=== PATIENT | male | born 1960 | race Caucasian/White ===

== ENCOUNTER 2020-03-08 10:30 | Outpatient (REF) | payer OTHER, SELFPAY ==
--- NOTE | 2020-03-08 10:37 | XR_ITS ---
EXAMINATION: CHEST WITH RIGHT RIBS AND RIGHT SHOULDER. CLINICAL INFORMATION: Chest pain. Right rib pain. COMPARISON: None TECHNIQUE: Right shoulder 3 views. Chest and right RIBS 4 views. FINDINGS: CHEST: The lungs are well-expanded and clear of acute process. The heart size and pulmonary vascularity is normal. There is moderate spondylosis dorsal spine. RIGHT RIBS: Multiple views of right ribs with marker along the lower ribs reveals a nondisplaced fractures right lateral seventh and eighth ribs there is no pneumothorax. RIGHT SHOULDER: There is mild reduction of glenohumeral and AC joint space with periarticular spurring of the AC joint. No visible fracture, dislocation or subluxation seen. No soft tissue calcifications or loose body seen. XR/XR ribs RT min 3V w CXR1V IMPRESSION: No acute cardiopulmonary process seen in chest. There is moderate spondylosis dorsal spine. There is nondisplaced fracture involving right anterolateral seventh and eighth rib.
--- NOTE | 2020-03-08 10:37 | XR_ITS ---
EXAMINATION: CHEST WITH RIGHT RIBS AND RIGHT SHOULDER. CLINICAL INFORMATION: Chest pain. Right rib pain. COMPARISON: None TECHNIQUE: Right shoulder 3 views. Chest and right RIBS 4 views. FINDINGS: CHEST: The lungs are well-expanded and clear of acute process. The heart size and pulmonary vascularity is normal. There is moderate spondylosis dorsal spine. RIGHT RIBS: Multiple views of right ribs with marker along the lower ribs reveals a nondisplaced fractures right lateral seventh and eighth ribs there is no pneumothorax. RIGHT SHOULDER: There is mild reduction of glenohumeral and AC joint space with periarticular spurring of the AC joint. No visible fracture, dislocation or subluxation seen. No soft tissue calcifications or loose body seen. XR/XR shoulder RT min 2V IMPRESSION: No acute cardiopulmonary process seen in chest. There is moderate spondylosis dorsal spine. There is nondisplaced fracture involving right anterolateral seventh and eighth rib.
== END 2020-03-08 10:31 | disposition home or self-care (01) ==
LOC: HO.HMGCX 10:30
PROVIDERS: PCP Internal Medicine; Visit Provider Nurse Practitioner Family
DX: R07.9 Chest pain, unspecified (principal); M25.511 Pain in right shoulder; Z91.81 History of falling
CPT/HCPCS: 71101; 73030

== ENCOUNTER 2021-03-18 14:17 | Outpatient (REF) | payer OTHER, SELFPAY ==
[2021-03-18 15:07] LABS: Influenza A PCR NEGATIVE (Negative); Influenza B PCR NEGATIVE (Negative); Resp Syncy Virus RNA Qual PCR NEGATIVE (Negative); SARS COV2 PCR INHOUSE POSITIVE (Negative)
== END 2021-03-18 14:18 | disposition home or self-care (01) ==
LOC: HO.LNP 14:17
PROVIDERS: Visit Provider Nurse Practitioner Family
DX: Z20.822 Contact with and (suspected) exposure to COVID-19 (principal); R52 Pain, unspecified; R09.81 Nasal congestion
CPT/HCPCS: 0241U

== ENCOUNTER 2021-07-22 11:11 | Outpatient (REF) | payer OTHER, SELFPAY ==
[2021-07-22 14:20] LABS: Alanine Aminotransferase 24 U/L (0-40); Anion Gap 15 (12-20); Aspartate Amino Transferase 17 U/L (5-37); Blood Urea Nitrogen 20 mg/dL (9-16); Calcium 9.9 mg/dL (8.4-10.2); Carbon Dioxide 28 mmol/L (22-29); Chloride 101 mmol/L (96-108); Cholesterol 223 mg/dL; Estimated Glomerular Filt Rate > 60; Glucose Fasting 111 mg/dL (60-99); HDL Cholesterol 55 mg/dL; LDL Cholesterol Calculated 149 mg/dl; Potassium 4.5 mmol/L (3.3-5.1); Sodium 139 mmol/L (135-145); Triglycerides 99 mg/dL
[2021-07-22 14:42] LABS: PSA,Total (Free>4and<10) 1.42 ng/mL (0.00-4.00); Vitamin D 25-OH Total 16.5 ng/mL (>30)
== END 2021-07-22 11:12 | disposition home or self-care (01) ==
LOC: HO.HMGCLDS 11:11
PROVIDERS: PCP Internal Medicine; Visit Provider Internal Medicine
DX: Z00.01 Encounter for general adult medical examination with abnormal findings (principal); E66.9 Obesity, unspecified; E78.5 Hyperlipidemia, unspecified; I10 Essential (primary) hypertension
CPT/HCPCS: 36415; 80048; 80061; 82306; 84153; 84450; 84460

== ENCOUNTER 2021-08-13 08:38 | Outpatient (REF) | payer OTHER, SELFPAY ==
--- NOTE | ~2021-08-13 | XR_ITS ---
EXAMINATION: XR CHEST CLINICAL INFORMATION: Unspecified cough COMPARISON: Prior chest radiograph 07/26/2018 TECHNIQUE: 2 views of the chest were obtained. FINDINGS: No significant abnormality is noted involving the heart, lungs, mediastinum, bony thorax or soft tissues. XR/XR chest 2V IMPRESSION: Unremarkable examination.
== END 2021-08-13 08:39 | disposition home or self-care (01) ==
LOC: HO.HMGCX 08:38
PROVIDERS: Visit Provider Physician Assistant
DX: R05.9 Cough, unspecified (principal)
CPT/HCPCS: 71046

== ENCOUNTER 2022-01-28 11:53 | Outpatient (REF) | payer OTHER, SELFPAY ==
--- NOTE | ~2022-01-28 | XR_ITS ---
EXAMINATION: XR HIP, LEFT CLINICAL INFORMATION: M47.812 - Spondylosis without myelopathy or radiculopathy, cervical region COMPARISON: None TECHNIQUE: AP view pelvis is performed along with AP and frog-lateral projections left hip. FINDINGS: No fracture, dislocation, destructive process. The SI joints and pubis are unremarkable. There is mild spurring superior lateral acetabulum without hip joint narrowing, erosive change, or chondrocalcinosis. XR/XR hip LT w PEL1V IMPRESSION: Mild spurring superior lateral acetabulum. No hip joint narrowing or erosive change.
== END 2022-01-28 11:54 | disposition home or self-care (01) ==
LOC: HO.HMGCX 11:53
PROVIDERS: PCP Internal Medicine; Visit Provider Internal Medicine
DX: M25.552 Pain in left hip (principal)
CPT/HCPCS: 73502

== ENCOUNTER → 2022-02-21 12:51 | Outpatient (BNVA) | payer OTHER, SELFPAY | PROVIDERS: PCP Internal Medicine; Visit Provider Physician Assistant | DX: S00.83XA Contusion of other part of head, initial encounter (principal); W17.89XA Other fall from one level to another, initial encounter | CPT/HCPCS: 99202 ==

== ENCOUNTER → 2022-03-06 08:52 | Outpatient (BNVA) | payer OTHER, SELFPAY | PROVIDERS: PCP Internal Medicine; Visit Provider Physician Assistant | DX: M70.62 Trochanteric bursitis, left hip (principal) | CPT/HCPCS: 20610; J1040 ==

== ENCOUNTER 2022-09-29 14:53 | Outpatient (AMB) | payer OTHER, SELFPAY ==
--- OUTSIDE RECORDS SUMMARY | 2022-09-29 14:56 | XMS_ITS ---
Author Name Thom Ko Address [address] [place] [address] Organization [facility] Address [address] [place] [address] Care Team Providers Care Post Form Remover Name Role Phone Thom Ko Unavailable [phone] PROBLEMS Unknown Problems ALLERGIES No Information ENCOUNTERS Encounter Location Date Diagnosis [facility] [address] [place] [address] Oct, [facility] [address] [place] [address] Oct, [facility] [place] [facility] [address] [place] [phone] Feb, [facility] [address] [place], [place] [phone] Sep, IMMUNIZATIONS No Known Immunizations SOCIAL HISTORY Never Assessed REASON FOR REFERRAL FUNCTIONAL STATUS PLAN OF CARE VITAL SIGNS MEDICATIONS Unknown Medications PROCEDURES No Known procedures RESULTS No Results REASON FOR VISIT Patient presents today for a colon screening, Patient presents today for a screening colonoscopy, had to cancel appt tomorrow, SCREENING COLON Insurance Providers Health Insurance Type Health Plan Insurance Address Health Plan Insurance Phone Health Plan Insurance Name Health Plan Coverage Dates Member ID Patient Relationship to Subscriber Patient Address Patient Phone Patient Name Patient Date of Subscriber ID Subscriber Name Subscriber Date of Group No [facility] [address] [facility] [id number] [facility] [place] RAMIRO JAMES [id number] [facility] Klarna [facility] [address] [address] [facility] [id number] [facility] self RAMIRO JAMES [id number]
--- NOTE | 2022-09-29 15:25 | MHC.OFFWIV ---
Intake Vital Signs 09/29/22 15:28 BP 120/80 Blood Pressure Location Rt brachial Position Sitting Pulse 75 Pulse Source Pulse Oximeter Pulse Oximetry (%) 92 Intake Visit Reasons: EP, Watery Eyes, Bilateral leg swelling Intake Note: Patient here for some bilat swelling and leg pain, which has been present for about 3 weeks. He also needs a refill on his lisinopril. on left leg when he goes to stand up he notices this big vein that shows up on tigh. Patient Tobacco Use Status: Former Tobacco user Allergies oxycodone Allergy (Verified 09/29/22 15:53) Itching Sulfa (Sulfonamide Antibiotics) Allergy (Verified 09/29/22 15:53) Itching Medication List - Last Reconciled 09/29/22 by Peña Lowe MD acetaminophen 650 mg PO Q6H PRN albuterol sulfate 90 mcg/actuation (Ventolin HFA) 1 inh inhalation QID PRN betamethasone dipropionate 0.05% 1 appl topical DAILY PRN 10 days cetirizine (All Day Allergy (cetirizine)) 10 mg PO BEDTIME PRN hydrochlorothiazide 12.5 mg PO QAM ibuprofen 400 mg PO Q6H PRN lisinopril 5 mg PO DAILY sildenafil 100 mg PO DAILY PRN Do you need a note to return to daycare/school/sports/work: No HPI EP, Watery Eyes, Bilateral leg swelling HPI Details 62-year-old male presents to the office for a sick visit. Patient is complaining of swelling and pain in the right leg in the past few weeks. No history of fall or injury. He has also noticed swelling in the right leg. In addition, patient is also having frequent tearing from the eyes. Does not use contact lenses. [facility] Medical History Colon cancer screening Dyslipidemia Eczema Erectile dysfunction Essential hypertension Obesity (BMI 30-39.9) Pain of left hip joint Varicose veins of both lower extremities Vitamin D deficiency Surgical History Hx of colonoscopy S/P anal fissurectomy Family History Father Diabetes mellitus Coronary artery disease Mother Dementia Sister No problems noted. 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 Head: Yes normal to inspection Eyes General: appearance normal, both eyes and all related structures Neck Neck: Yes normal visual inspection Chest Chest palpation & inspection: normal palpation of entire chest wall Resp Effort & Inspection: normal respiratory effort Neuro General: patient oriented x3 Extrem Other: Right leg: Pitting edema trace, varicose veins prominent with discomfort. Assessment & Plan Assessment & Plan (1) Allergic conjunctivitis: Code(s): H10.10 - Acute atopic conjunctivitis, unspecified eye Plan: Pataday ophthalmic solution to be applied once a day (2) Phlebitis: Code(s): I80.9 - Phlebitis and thrombophlebitis of unspecified site Plan: Nonspecific inflammation of the varicose vein. Keep leg elevated. Anti-inflammatory called in. Medications: Refilled lisinopril 5 mg PO DAILY 90 caps 2RF I10 - Essential (primary) hypertension Coding Level of Care Code Est Pt Level 4 (18750) Diagnoses Allergic conjunctivitis H10.10 Phlebitis I80.9
[2022-09-29 15:28] VITALS: BP 120/80; PULSE 75; O2SAT 92
== END 2022-09-29 16:11 | disposition home or self-care (01) ==
PROVIDERS: PCP Internal Medicine; Visit Provider Internal Medicine
DX: H10.10 Acute atopic conjunctivitis, unspecified eye (principal); I80.9 Phlebitis and thrombophlebitis of unspecified site
CPT/HCPCS: 99214

== ENCOUNTER 2022-10-07 16:00 | Outpatient (AMB) | payer OTHER, SELFPAY ==
--- OUTSIDE RECORDS SUMMARY | 2022-10-07 16:01 | XMS_ITS ---
Author Name Thom Ko Address [address] [place] [address] Organization [facility] Address [address] [place] [address] Care Team Providers Care Cold Roll Catcher Name Role Phone Thom Ko Unavailable [phone] PROBLEMS Unknown Problems ALLERGIES No Information ENCOUNTERS Encounter Location Date Diagnosis [facility] [address] [place] [address] Oct, [facility] [address] [place] [address] Oct, [facility] [place] [address] [phone] Feb, [facility] [place] [facility] [address] [place], [place] [id number] Sep, IMMUNIZATIONS No Known Immunizations SOCIAL HISTORY [...] Name Subscriber Date of Group No [facility] [address] [facility] [id number] [facility] RAMIRO JAMES [id number] [facility] [address] [address] [facility] [id number] [facility] self RAMIRO JAMES [id number]
[2022-10-07 16:47] VITALS: BP 110/74; PULSE 60; O2SAT 97
--- NOTE | 2022-10-07 16:47 | MHC.OFFWIV ---
Intake Vital Signs 10/07/22 16:47 Height 6 ft BP 110/74 Blood Pressure Location Lt brachial Position Sitting Pulse 60 Pulse Source Pulse Oximeter Pulse Oximetry (%) 97 Oxygen Delivery Method Room Air Intake Visit Reasons: EST follow up medication is not working Intake Note: pt was here I week ago yesterday for ankle swelling in both his ankles and was given medicine with no relief of the swelling so he came back to have it checked Patient Tobacco Use Status: Former Tobacco user Allergies oxycodone Allergy (Verified 10/15/22 14:18) Itching Sulfa (Sulfonamide Antibiotics) Allergy (Verified 10/15/22 14:18) Itching HPI EST follow up medication is not working HPI Details 62-year-old male presents to the office for a sick visit. He was seen for phlebitis and allergic conjunctivitis recently. Patient reports that his eye symptoms have resolved. Continues to have swelling in the feet. Reports pain symptoms at the bottom of the feet. [facility] Medical History Colon cancer screening Dyslipidemia Eczema Erectile dysfunction Essential hypertension Obesity (BMI 30-39.9) Pain of left hip joint Varicose veins of both lower extremities Vitamin D deficiency Surgical History Hx of colonoscopy S/P anal fissurectomy Family History Father Diabetes mellitus Coronary artery disease Mother Dementia Sister No problems noted. 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 Cognitive needs: No Hearing needs: No Vision needs: Yes Physical Exam Vital Signs: Last Vital Signs Pulse 60 10/07/22 16:47 BP 110/74 10/07/22 16:47 Pulse Ox 97 10/07/22 16:47 Oxygen Delivery Method Room Air 10/07/22 16:47 Const General: cooperative and healthy appearing Nutritional Appearance: well nourished Orientation/consciousness: patient oriented x3 Limitations: no limitations HEENT Head: Yes normal to inspection Eyes General: appearance normal, both eyes and all related structures Neck Neck: Yes normal visual inspection Chest Chest palpation & inspection: normal palpation of entire chest wall Resp Effort & Inspection: normal respiratory effort Neuro General: patient oriented x3 Extrem Other: Right and left legs: Varicose veins present. No evidence of phlebitis. Assessment & Plan Assessment & Plan (1) Pain, lower extremity: Code(s): M79.606 - Pain in leg, unspecified Plan: Patient needs an evaluation of his circulatory system. This is best done at his primary care office where referrals and diagnostic can be ordered. Patient was advised to follow-up with his primary care provider. Coding Level of Care Code Est Pt Level 3 (81293) Diagnoses Pain, lower extremity M79.606
== END 2022-10-07 17:07 | disposition home or self-care (01) ==
PROVIDERS: PCP Internal Medicine; Visit Provider Internal Medicine
DX: M79.606 Pain in leg, unspecified (principal)
CPT/HCPCS: 99213

== ENCOUNTER 2022-10-17 10:26 | Outpatient (AMB) | payer OTHER, SELFPAY ==
--- NOTE | 2022-10-17 10:30 | MHC.PC.OV ---
Vital Signs 10/17/22 10:34 Height 6 ft Weight 268 lb BMI 36.3 BP 142/80 H Blood Pressure Location Rt brachial Position Sitting Pulse 71 Pulse Source Pulse Oximeter Pulse Oximetry (%) 97 Oxygen Delivery Method Room Air Intake Visit Reasons: Follow up from walk in per DR Lawson Intake Note: Pt is here today for his bilateral feet swollen f/u from walkin Allergies oxycodone Allergy (Verified 10/19/22 23:52) Itching Sulfa (Sulfonamide Antibiotics) Allergy (Verified 10/19/22 23:52) Itching Medication List - Last Reconciled 10/17/22 by Priscila Hartman MD albuterol sulfate 90 mcg/actuation (Ventolin HFA) 1 inh inhalation QID PRN betamethasone dipropionate 0.05% 1 appl topical DAILY PRN 10 days hydrochlorothiazide 12.5 mg PO QAM lisinopril 5 mg PO DAILY olopatadine 0.2% (Pataday Once Daily Relief) 1 drp ophthalmic (eye) DAILY sildenafil 100 mg PO DAILY PRN Tobacco use date assessed: 10/17/22 Dental Screening Dental Screen Date: 10/17/22 Did you have a dental visit in the last 12 months?: Yes Did you have a dental problem in the last 6 months where you did not have access to dental care?: Yes Was dental information given to patient?: Patient has dentist HPI Follow up from [facility] in per DR Lawson HPI Details 62-year-old male h ypertension, obesi ty, here today fo r follow-up after being seen at the walk-in for phleb itis and allergic conjunctivitis rec ently.? Patient re ports that his eye symptoms have res olved.? Continues to have swelling i n the feet.? Repor ts pain symptoms a t the bottom of th e feet, worse with standing for exte nded periods of ti me ? PFSH Medical History (Updated 10/17/22 @ 10:58 by Priscila Hartman MD) Bilateral lower extremity edema Colon cancer screening Dyslipidemia Eczema Erectile dysfunction Essential hypertension Obesity (BMI 30-39.9) Pain of left hip joint Varicose veins of both lower extremities Vitamin D deficiency Surgical History Hx of colonoscopy S/P anal fissurectomy Family History Father Diabetes mellitus Coronary artery disease Mother Dementia Sister No problems noted. 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 1. Little interest or pleasure in doing things: not at all 2. Feeling down, depressed, or hopeless: not at all 3. Trouble falling or staying asleep, or sleeping too much: not at all 4. Feeling tired or having little energy: not at all 5. Poor appetite or overeating: not at all 6. Feeling bad about yourself - or that you are a failure or have let yourself or your family down: not at all 7. Trouble concentrating on things, such as reading the newspaper or watching television: not at all 8. Moving or speaking so slowly that other people could have noticed. Or the opposite - being so fidgety or restless that you have been moving around a lot more than usual: not at all 9. Thoughts that you would be better off or of hurting yourself in some way: not at all Total score: 0 Depression Screening Interpretation: Negative 35587 - PHQ-9 Billing: Yes Source: Developed by Drs. Thom Foreman, Melody Ardon, Aamir Blevins and colleagues, with an educational aruna from [employer]. Thrive Questionnaire Date Thrive assessed: 10/17/22 I am a: Patient What is your living situation today?: I have a steady place to live Within the past 12 months, did the food you bought not last and you didn't have the money to get more?: Never true Within the past 12 months, did you worry whether your food would run out before you got money to buy more?: Never true Do you have trouble paying for medicines?: No Do you have trouble getting transportation to medical appointments?: No Do you have trouble paying your heating and electricity bill?: No Do you have trouble taking care of your child, family member or friend?: No Do you have trouble with day-to-day activities such as bathing, preparing meals, shopping, managing finances, etc.?: No Are you currently unemployed and looking for a job?: No Are you interested in more education?: No AUDIT C Alcohol Use Questionnaire (AUDIT-C) 1. How often do you have a drink containing alcohol?: Monthly or less 2. How many drinks containing alcohol do you have on a typical day when you are drinking?: 1 or 2 3. How often do you have six or more drinks on one occasion?: Never Total Score: 1 JESSICA-7 AMB Questionnaire JESSICA-7 Date JESSICA - 7 assessed: 10/17/22 Feeling nervous, anxious, or on edge: 0 = Not at all Not being able to stop or control worryin = Not at all Worrying too much about different things: 0 = Not at all Trouble relaxin = Not at all Being so restless that it is hard to sit still: 0 = Not at all Becoming easily annoyed or irritable: 0 = Not at all Feeling afraid as if something awful might happen: 0 = Not at all Total JESSICA-7 score (0-4 normal; 5-9 mild; 10-14 moderate; 15-21 severe): 0 Source: Developed by Drs. Thom Foreman, Melody Ardno, Aamir Blevins and colleagues, with an educational aruna from [employer]. JESSICA-7 Assessment Billing JESSICA-7 Assessment Tool: JESSICA-7 Assessment 76206 Review of Systems Const All systems reviewed & are unremarkable except as noted in HPI and below Card Reports no additional complaints Resp Reports no additional complaints Reports no additional complaints Musc Reports as per HPI Physical exam (Primary Care) Vital Signs: Last Vital Signs Pulse 71 10/17/22 10:34 BP 142/80 H 10/17/22 10:34 Pulse Ox 97 10/17/22 10:34 Oxygen Delivery Method Room Air 10/17/22 10:34 BMI result Body Mass Index 36.3 Tobacco/Smoking Status: Tobacco use Status Tobacco use date assessed 10/17/22 10/17/22 10:38 Patient Tobacco Use Status Never used Tobacco 10/17/22 10:38 e-Cigarette/Vaping Use Never Used 10/17/22 10:31 PHQ-9: PHQ-9 Score PHQ-9: Total score 0 10/17/22 11:07 Depression Screening Interpretation: Negative Thrive Assessment: Date of Thrive Assessment Date Thrive assessed 10/17/22 10/17/22 11:07 Const General: comfortable and no acute distress Nutritional Appearance: obese Orientation/consciousness: patient oriented x3 Neck Neck: Yes full ROM, Yes no lymphadenopathy and Yes supple Resp Auscultation: clear to auscultation bilaterally Cardio Rate: regular rate Rhythm: regular rhythm Heart sounds: S1 normal heart sound present and S2 normal heart sound present Peripheral pulses: Peripheral pulses 2+ throughout GI Inspection: Yes obesity Palpation (GI): Soft to palpation, nontender, no guarding and no masses Auscultation: normal bowel sounds Skin General skin exam: no rashes or lesions noted Neuro General: patient oriented x3 Extrem Other: Varicose veins noted in both lower extremities, right more than the left read ankle swelling noted bilaterally again right more than the left General: No no joint enlargement, Yes no calf tenderness and Yes normal gait Assessment and Plan Assessment & Plan (1) Varicose veins of both lower extremities: Code(s): I83.93 - Asymptomatic varicose veins of bilateral lower extremities (2) Bilateral lower extremity edema: Code(s): R60.0 - Localized edema Plan: Ordered ultrasound venous duplex to rule out venous insufficiency, advised to wear compression socks especially when upright or walking for extended periods of time and remove them at night. Orders: Orders US venous duplex LE 10/17/22 I83.93 - Asymptomatic varicose veins of bilateral lower extremities, R60.0 - Localized edema Coding Level of Care Code Est Pt Level 3 (05815) Diagnoses Varicose veins of both lower extremities I83.93 Bilateral lower extremity edema R60.0 Additional Codes JESSICA-7 Assessment Billing - JESSICA-7 Assessment Tool: JESSICA-7 Assessment 82705 ([id number])
[2022-10-17 10:34] VITALS: BP 142/80; PULSE 71; O2SAT 97; BMI 36.3
== END 2022-10-17 13:16 | disposition home or self-care (01) ==
PROVIDERS: PCP Internal Medicine; Visit Provider Internal Medicine
DX: I83.93 Asymptomatic varicose veins of bilateral lower extremities (principal); R60.0 Localized edema
CPT/HCPCS: 99213

== ENCOUNTER 2022-10-28 13:13 | Outpatient (REF) | payer OTHER, SELFPAY ==
--- NOTE | ~2022-10-28 | US_ITS ---
EXAMINATION: US VENOUS BILATERAL LOWER EXTREMITIES (REFLUX EXAM) CLINICAL INDICATION: Swelling in both lower extremities right greater than left with question of venous insufficiency. COMPARISON: None available. TECHNIQUE: Color flow triplex imaging and compression Doppler was performed to evaluate both the deep and the superficial systems bilaterally. To evaluate the superficial system, the examination was performed in the upright position. Color-flow Doppler ultrasound and compression ultrasound were utilized. In addition, maneuvers were utilized to demonstrate reflux. FINDINGS: 1. DEEP VENOUS ULTRASOUND OF THE RIGHT LOWER EXTREMITY: Respiratory variation, normal compression and augmented flow are noted in the right common femoral vein as well as the right popliteal vein and there is no evidence of deep venous thrombosis at these locations. There is no evidence of reflux in the deep system in either the common femoral vein or the popliteal vein. There is no evidence of a Mccarthy's cyst. 2. SUPERFICIAL ULTRASOUND WITH DOPPLER OF RIGHT LOWER EXTREMITY: The right great saphenous vein at the saphenofemoral junction measures 7 mm, at the proximal thigh 5 mm, at the mid thigh 4 mm, above the knee 4 mm, at the knee 3 mm, [id number] 3 mm, midcalf 4 mm and at the ankle measures 3 mm. Gross reflux is present in the right great saphenous vein from the mid thigh all the way down to the ankle with reflux times greater than 2.8 seconds. Duplicated Right Great Saphenous Vein: There is a 5 mm lateral accessory saphenous that does not reflux. The right small saphenous vein measures 4 mm and shows no reflux. Accessory Vein of Giacomini: None. Incompetent Perforators: None. Varices Present: Some proximal thigh varices are seen the largest measuring 0.3 cm. 3. DEEP VENOUS ULTRASOUND OF THE LEFT LOWER EXTREMITY: Respiratory variation, normal compression and augmented flow are noted in the left common femoral vein as well as the left popliteal vein and there is no evidence of deep venous thrombosis at these locations. There is no evidence of reflux in the deep system in either the common femoral vein or the popliteal vein. There is no evidence of a Mccarthy's cyst. 4. SUPERFICIAL ULTRASOUND WITH DOPPLER OF LEFT LOWER EXTREMITY: Left great saphenous vein at the saphenofemoral junction measures 8 mm, at the proximal thigh 4 mm, at the mid thigh 3 mm, above the knee 4 mm, at the knee 4 mm, [id number] 3 mm, midcalf 3 mm and at the ankle measures 2 mm. There is no reflux demonstrated in the left great saphenous vein. Duplicated Left Great Saphenous Vein: There is a 3 mm lateral accessory saphenous that does not reflux. The left small saphenous vein measures 4 mm and shows no reflux. Accessory Vein of Giacomini: None. Incompetent Perforators: None. Varices Present: None. US/US venous duplex LE BI IMPRESSION: 1. No evidence of reflux or thrombus in the common femoral veins or popliteal veins bilaterally. 2. Gross reflux in the right great saphenous vein as described above.
== END 2022-10-28 13:14 | disposition home or self-care (01) ==
LOC: HO.US 13:13
PROVIDERS: PCP Internal Medicine; Visit Provider Internal Medicine
DX: I83.93 Asymptomatic varicose veins of bilateral lower extremities (principal); R60.0 Localized edema
CPT/HCPCS: 93970

== ENCOUNTER 2022-12-04 16:04 | Outpatient (AMB) | payer OTHER, SELFPAY ==
[2022-12-04 16:09] VITALS: BP 110/72; PULSE 89; O2SAT 98
--- NOTE | 2022-12-04 16:09 | MHC.PC.OV ---
Vital Signs 12/04/22 16:09 Height 6 ft BP 110/72 Blood Pressure Location Rt brachial Position Sitting Pulse 89 Pulse Source Pulse Oximeter Pulse Oximetry (%) 98 Oxygen Delivery Method Room Air Intake Visit Reasons: ER Heather blood clot Intake Note: patient is here todY for ER f/u of blood clot Allergies oxycodone Allergy (Verified 12/04/22 17:03) Itching Sulfa (Sulfonamide Antibiotics) Allergy (Verified 12/04/22 17:03) Itching Medication List - Last Reconciled 12/04/22 by Priscila Hartman MD albuterol sulfate 90 mcg/actuation (Ventolin HFA) 1 inh inhalation QID PRN apixaban (Eliquis) 5 mg PO BID betamethasone dipropionate 0.05% 1 appl topical DAILY PRN 10 days hydrochlorothiazide 12.5 mg PO QAM lisinopril 5 mg PO DAILY olopatadine 0.2% (Pataday Once Daily Relief) 1 drp ophthalmic (eye) DAILY sildenafil 100 mg PO DAILY PRN Tobacco use date assessed: 12/04/22 Fall risk assessment: No Falls in past year Last assessed Fall Risk: 12/04/22 Dental Screening Dental Screen Date: 12/04/22 Did you have a dental visit in the last 12 months?: No Did you have a dental problem in the last 6 months where you did not have access to dental care?: Yes Was dental information given to patient?: Patient has dentist HPI ER Heather blood clot HPI Details 62-year-old male with history of hypertension, hyperlipidemia, asthma, obesity, here today for follow-up after recent ER visit at [facility] 11/19/2022 where he presented with bilateral lower extremity swelling. Workup in the ED revealed nonocclusive right lower extremity DVT. CTA chest revealed bilateral pulmonary embolism without right heart strain, troponin x2 came back negative. He was initially started on heparin drip and then switched to Eliquis 5 mg 1 tablet twice a day. He reports feeling well, with no complaints of shortness of breath, swelling in both lower extremities has resolved, denies any pain in calves, denies palpitations or chest pain. [facility] Medical History (Updated 12/04/22 @ 16:57 by Priscila Hartman MD) Pulmonary embolism Deep venous thrombosis (DVT) of right peroneal vein Bilateral lower extremity edema Erectile dysfunction Pain of left hip joint Vitamin D deficiency Colon cancer screening Obesity (BMI 30-39.9) Varicose veins of both lower extremities Eczema Dyslipidemia Essential hypertension Surgical History Hx of colonoscopy S/P anal fissurectomy Family History Father Diabetes mellitus Coronary artery disease Mother Dementia Sister No problems noted. 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 1. Little interest or pleasure in doing things: several days 2. Feeling down, depressed, or hopeless: not at all 3. Trouble falling or staying asleep, or sleeping too much: not at all 4. Feeling tired or having little energy: more than half the days 5. Poor appetite or overeating: not at all 6. Feeling bad about yourself - or that you are a failure or have let yourself or your family down: not at all 7. Trouble concentrating on things, such as reading the newspaper or watching television: not at all 8. Moving or speaking so slowly that other people could have noticed. Or the opposite - being so fidgety or restless that you have been moving around a lot more than usual: more than half the days 9. Thoughts that you would be better off or of hurting yourself in some way: not at all Total score: 5 Depression Screening Interpretation: Negative 50322 - PHQ-9 Billing: Yes Source: Developed by Drs. Thom Foreman, Melody Ardon, Aamir Blevins and colleagues, with an educational aruna from [employer]. Thrive Questionnaire Date Thrive assessed: 10/17/22 AUDIT C Alcohol Use Questionnaire (AUDIT-C) 1. How often do you have a drink containing alcohol?: Monthly or less 2. How many drinks containing alcohol do you have on a typical day when you are drinking?: 1 or 2 Total Score: 1 JESSICA-7 AMB Questionnaire JESSICA-7 Date JESSICA - 7 assessed: 10/17/22 Source: Developed by Drs. Thom Foreman, Melody Ardon, Aamir Blevins and colleagues, with an educational aruna from [employer]. Review of Systems Const Denies body aches, Denies fatigue, Denies fever(s), Denies headache(s) and Denies weakness ENT Denies dizziness, Denies headache(s) and Denies sore throat Card Denies chest pain, Denies lightheadedness, Denies palpitations and Denies dyspnea Resp Denies chest congestion, Denies dyspnea and Denies wheezing GI Denies abdominal pain, Denies change in bowel habits and Denies heartburn Denies dysuria, Denies urinary frequency and Denies urinary urgency Musc Reports no additional complaints Skin/Breast Reports as per HPI Neuro Denies dizziness, Denies headache(s) and Denies weakness Psych Reports as per HPI Endo Denies fatigue, Denies polydipsia, Denies polyuria and Denies palpitations Ceasar/Lymph Denies easy bruising Aller/Immun Denies seasonal rhinorrhea and Denies wheezing Physical exam (Primary Care) Vital Signs: Last Vital Signs Pulse 89 12/04/22 16:09 BP 110/72 12/04/22 16:09 Pulse Ox 98 12/04/22 16:09 Oxygen Delivery Method Room Air 12/04/22 16:09 Tobacco/Smoking Status: Tobacco use Status Tobacco use date assessed 12/04/22 12/04/22 16:20 Patient Tobacco Use Status Never used Tobacco 12/04/22 16:20 e-Cigarette/Vaping Use Never Used 12/04/22 16:20 PHQ-9: PHQ-9 Score PHQ-9: Total score 5 12/04/22 17:02 Depression Screening Interpretation: Negative Thrive Assessment: Date of Thrive Assessment Date Thrive assessed 10/17/22 12/04/22 16:20 Const General: comfortable and no acute distress Nutritional Appearance: obese Orientation/consciousness: patient oriented x3 Neck Neck: Yes full ROM, Yes no lymphadenopathy and Yes supple Resp Auscultation: clear to auscultation bilaterally Cardio Rate: regular rate Rhythm: regular rhythm Heart sounds: S1 normal heart sound present and S2 normal heart sound present Peripheral pulses: Peripheral pulses 2+ throughout GI Inspection: Yes obesity Palpation (GI): Soft to palpation, nontender, no guarding and no masses Auscultation: normal bowel sounds Skin General skin exam: no rashes or lesions noted Neuro General: patient oriented x3 Extrem Other: Varicose veins noted in both lower extremities, right more than the left read ankle swelling noted bilaterally again right more than the left General: No no joint enlargement, Yes no calf tenderness and Yes normal gait Assessment and Plan Assessment & Plan (1) Deep venous thrombosis (DVT) of right peroneal vein: Code(s): I82.451 - Acute embolism and thrombosis of right peroneal vein Plan: Continued on Eliquis 5 mg per tablet taken 1 tablet twice a day. (2) Pulmonary embolism: Code(s): I26.99 - Other pulmonary embolism without acute cor pulmonale Plan: Will evaluate for coagulation defects, labs ordered. Continued on Eliquis 5 mg 1 tablet twice a day Orders: Orders Factor V Leiden 12/04/22 I82.451 - Acute embolism and thrombosis of right peroneal vein, I26.99 - Other pulmonary embolism without acute cor pulmonale Anti-Thrombin III Activity 12/04/22 I82.451 - Acute embolism and thrombosis of right peroneal vein, I26.99 - Other pulmonary embolism without acute cor pulmonale Lupus Anticoagulant Panel 12/04/22 I82.451 - Acute embolism and thrombosis of right peroneal vein, I26.99 - Other pulmonary embolism without acute cor pulmonale Protein C Activity Reflex Ag 12/04/22 I82.451 - Acute embolism and thrombosis of right peroneal vein, I26.99 - Other pulmonary embolism without acute cor pulmonale Protein S Activity reflex Ag 12/04/22 I82.451 - Acute embolism and thrombosis of right peroneal vein, I26.99 - Other pulmonary embolism without acute cor pulmonale Medications: New apixaban (Eliquis) 5 mg PO BID 60 tabs 1RF I26.99 - Other pulmonary embolism without acute cor pulmonale, I82.451 - Acute embolism and thrombosis of right peroneal vein Refilled sildenafil administer 30 minutes to 4 hours before activity 100 mg PO DAILY PRN 10 tabs 0RF sexual activity Coding Level of Care Code Est Pt Level 3 (41768) Diagnoses Deep venous thrombosis (DVT) of right peroneal vein I82.451 Pulmonary embolism I26.99
== END 2022-12-04 17:04 | disposition home or self-care (01) ==
PROVIDERS: PCP Internal Medicine; Visit Provider Internal Medicine
DX: I82.451 Acute embolism and thrombosis of right peroneal vein (principal); I26.99 Other pulmonary embolism without acute cor pulmonale
CPT/HCPCS: 99213

== ENCOUNTER 2023-04-20 08:27 | Outpatient (AMB) | payer OTHER, SELFPAY ==
--- OUTSIDE RECORDS SUMMARY | 2023-04-20 08:39 | XMS_ITS | Patient Health Record ---
Author Name Unknown [facility] Address [address] [place] [address] Care Team Providers Care Long Term Care Social Worker Name Role Phone Devan THOMAS, Priscila Hawkins Primary Care Provider Un available Mo Garry Unavailable [phone] REASON FOR REFERRAL No Information MEDICATIONS Medication SIG (Take, Route, Frequency, Duration) Notes Start Date End Date Status Betamethasone Dipropionate 0.05 % 1 application Externally Once a day Active hydroCHLOROthiazide Active Lisinopril 0.5 1 tablet Orally Once a day Active SOCIAL HISTORY Tobacco Use: Social History Observation Description Date Details (start date - stop date) Never Smoker NA - NA Sex Assigned At : Social History Observation Description Sex Assigned At Unknown Tobacco Use/Smoking Question Answer Notes Are you a: nonsmoker Alcohol Screen Question Answer Notes Did you have a drink containing alcohol in the p ast year? Yes Points 0 Interpretation Negative Tobacco use other than smoking: Question Answer Notes Are you an other tobacco user? No PROBLEMS Problem Type ICD Code Onset Dates Problem Status W/U Status Risk SNOMED Code Notes Problem Other hammer toe(s) (acquired), left foot (M20.42) Active confirmed Acquired hammer toe of left foot ([id number]) PLAN OF TREATMENT Pending Test Test Name Order Date X ray : Foot, left 3V 05/25/2019 Next Appt Details Provider Name:Julia viera, 06/26/2023 10:30:00 AM, [address] [place], [address], Insurance Providers Payer Name Payer Address Payer Phone Subscriber Number Group Number Insured Name Patient Relationship to Insured Coverage Start Date Coverage End Date [facility] [address] [facility] [place] [phone] [id number] Derick Fields Self - patient is the insured MEDICAL (GENERAL) HISTORY Medical History History ICD Code High blood pressure Measles Surgical History Surgery Date(Month/Year) Hospitalization History Reason Date(Month/Year) [facility]- Respiratory infection 08/01
--- OUTSIDE RECORDS SUMMARY | 2023-04-20 08:39 | XMS_ITS | Patient Health Record ---
Author Name Unknown Organization [facility] Address [address] [place] [id number] Care Team Providers Care Coal Inspector Name Role Phone Devan THOMAS, Priscila Primary Care Provider Thom Gaines [phone] REASON FOR REFERRAL No Information SOCIAL HISTORY Sex Assigned At : Social History Observation Description Sex Assigned At Unknown PLAN OF TREATMENT No Information Insurance Providers Payer Name Payer Address Payer Phone Subscriber Number Group Number Insured Name Patient Relationship to Insured Coverage Start Date Coverage End Date [facility] [address] [address] [place], [place] [id number] RAMIRO JAMES Self - patient is the insured
[2023-04-20 09:09] VITALS: BP 130/80; PULSE 83; TEMP 36.9; O2SAT 96; BMI 37.0
--- NOTE | 2023-04-20 09:09 | AM.OFFWIN_ITS ---
Intake Vital Signs 04/20/23 09:09 Height 6 ft Weight 123.831 kg BMI 37.0 BP 130/80 Blood Pressure Location Lt brachial Position Sitting Pulse 83 Pulse Source Pulse Oximeter Temp 98.5 F Temp Source Temporal Artery Scan Pulse Oximetry (%) 96 Oxygen Delivery Method Room Air Intake Visit Reasons: EST/congestion (lobby masked) Intake Note: pt is here today for congestion started 1 week ago Patient Tobacco Use Status: Never used Tobacco Allergies oxycodone Allergy (Verified 04/20/23 09:09) Itching Sulfa (Sulfonamide Antibiotics) Allergy (Verified 04/20/23 09:09) Itching Do you need a note to return to daycare/school/sports/work: No HPI HPI Comments History of Present Illness Details 921 63-year-old male hx of COPD, PE & VT ( o n eliquis) obesity, htn presents w/ complaints of cough, fatigue malaise for about a week. Patient tells me that he is coughing up a decent amount of thick clear sputum. He states he just does not feel well. Denies chest pain, shortness of breath, nausea, vomiting, abdominal pain, headache, vision changes, dizziness and weakness at this time. Physical examination faint expiratory wheezing bilaterally. History and physical exam are concerning for bronchitis versus COPD exacerbation. No signs of acute respiratory distress, PE, dissection, ACS. Will discharge with doxycycline, prednisone, albuterol. Educated patient on diagnosis and treatment plan, answered all question, patient verbalizes understanding. At this time patient will be discharged home, advised to return with new or worsening symptoms. Educated on worrisome signs and symptoms and when to return. At this time I feel comfortable discharge home. [facility] Medical History (Updated 04/20/23 @ 09:27 by RY Calix) Pulmonary embolism Deep venous thrombosis (DVT) of right peroneal vein Bilateral lower extremity edema Erectile dysfunction Pain of left hip joint Vitamin D deficiency Colon cancer screening Obesity (BMI 30-39.9) Varicose veins of both lower extremities Eczema Dyslipidemia Essential hypertension Surgical History Hx of colonoscopy S/P anal fissurectomy Family History Father Diabetes mellitus Coronary artery disease Mother Dementia Sister No problems noted. 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 Oriented X3.? No acute distress.? Head: Normocephalic, atraumatic, no step-offs or deformities Eyes: Pupils equal, round and reactive to light. CVS: Normal heart rate and rhythm.? Pulses normal.? Respiratory: No respiratory distress.? Breath sounds bilateral faint expiratory wheezing..? Abdomen: Soft and nontender.? Skin: Skin warm and dry.? Normal skin color.? Normal skin turgor.? Extremities: No lower extremity edema.? No calf ttp. 5/5 strength to bilateral upper and lower extremities Neuro: Oriented X 3.? No motor deficit.? No sensory deficit. CN 2-12 intact Assessment & Plan Assessment & Plan (1) Upper respiratory tract infection: Comment: likely viral Code(s): J06.9 - Acute upper respiratory infection, unspecified Plan Take your medications as prescribed. If you were prescribed antibiotics today, it is important that you take your medication to their entirety, do not skip any doses, do not finish them early. Follow-up with your primary care provider this week. Return to the emergency department with new or worsening symptoms. Such as fevers, chills, chest pain, shortness of breath, nausea, vomiting, dizziness, headache, vision changes, lethargy In case of emergency call 911 Orders: Orders BinaxNOW Covid-19 Ag Today J06.9 - Acute upper respiratory infection, unspecified Medications: New doxycycline hyclate 100 mg PO BID 7 days 14 caps 0RF prednisone 40 mg (2 x 20 mg) PO DAILY 5 days 10 tabs 0RF albuterol sulfate 90 mcg/actuation 2 puffs inhalation Q6H PRN 6.7 grams 0RF shortness of breath or wheezing Coding Level of Care Code Est Pt Level 3 (63050) Diagnoses Upper respiratory tract infection J06.9
== END 2023-04-20 09:47 | disposition home or self-care (01) ==
PROVIDERS: PCP Internal Medicine; Visit Provider Physician Assistant
DX: J06.9 Acute upper respiratory infection, unspecified (principal)
CPT/HCPCS: 99213

== ENCOUNTER 2023-04-20 09:24 | Outpatient (REF) | payer OTHER, SELFPAY ==
[2023-04-20 10:56] LABS: Binax Internal Control QC Valid; Binax Now Covid-19 Ag Negative (Negative); Binax Performed by: HO.BONILM
== END 2023-04-20 09:25 | disposition home or self-care (01) ==
LOC: HO.HMGCLDS 09:24
PROVIDERS: PCP Internal Medicine; Visit Provider Physician Assistant
DX: Z11.52 Encounter for screening for COVID-19 (principal); J06.9 Acute upper respiratory infection, unspecified
CPT/HCPCS: 87811

== ENCOUNTER 2023-05-29 09:38 | Outpatient (AMB) | payer OTHER, SELFPAY ==
--- NOTE | 2023-05-29 09:42 | MHC.OFFWIV ---
Intake Vital Signs 05/29/23 09:43 Height 6 ft Weight 273 lb BMI 37.0 BP 130/70 Blood Pressure Location Lt brachial Position Sitting Pulse 67 Pulse Source Pulse Oximeter Temp 97.5 F Temp Source Temporal Artery Scan Pulse Oximetry (%) 96 Oxygen Delivery Method Room Air Intake Visit Reasons: EP ?Respiratory Intake Note: pt is here today for respiratory started 2 weeks ago Patient Tobacco Use Status: Never used Tobacco Allergies oxycodone Allergy (Verified 05/29/23 09:43) Itching Sulfa (Sulfonamide Antibiotics) Allergy (Verified 05/29/23 09:43) Itching Do you need a note to return to daycare/school/sports/work: No HPI HPI Comments History of Present Illness Details This is a 63-year-old male with past medical history significant for DVT/PE, chronic obstructive pulmonary disease, essential hypertension who presented to the walk-in clinic complaining of a persistent productive cough and shortness of breath x 2 weeks. Patient states he has been she did with prednisone and doxycycline but he did not have any significant improvement in his symptoms. He is reporting persistent cough with green-yellow sputum production and shortness of breath mostly with exertion. He denies any chest pain. He denies any abdominal pain or nausea/vomiting/diarrhea. He denies any fevers or chills. He denies any nasal/sinus congestion, rhinorrhea, sore throat, myalgias. [facility] Medical History (Updated 05/25/23 @ 13:36 by Priscila Hartman MD) Current use of prison anticoagulation Factor 5 Leiden mutation, heterozygous Pulmonary embolism Deep venous thrombosis (DVT) of right peroneal vein Bilateral lower extremity edema Erectile dysfunction Pain of left hip joint Vitamin D deficiency Colon cancer screening Obesity (BMI 30-39.9) Varicose veins of both lower extremities Eczema Dyslipidemia Essential hypertension Surgical History Hx of colonoscopy S/P anal fissurectomy Family History Father Diabetes mellitus Coronary artery disease Mother Dementia Sister No problems noted. 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 Cognitive needs: No Hearing needs: No Vision needs: Yes Review of Systems Const All systems reviewed & are unremarkable except as noted in HPI and below Reports no additional complaints Eyes Reports no additional complaints ENT Reports no additional complaints Card Reports no additional complaints Resp Reports no additional complaints GI Reports no additional complaints Reports no additional complaints Musc Reports no additional complaints Skin/Breast Reports system reviewed and no additional complaints, except as documented Neuro Reports no additional complaints Psych Reports no additional complaints Endo Reports no additional complaints Ceaasr/Lymph Reports no additional complaints Aller/Immun Reports no additional complaints Physical Exam Vital Signs: Last Vital Signs Temp 97.5 F 05/29/23 09:43 Pulse 67 05/29/23 09:43 BP 130/70 05/29/23 09:43 Pulse Ox 96 05/29/23 09:43 Oxygen Delivery Method Room Air 05/29/23 09:43 BMI result Body Mass Index 37.0 Const Other: Vital signs reviewed. Constitutional: Non-toxic appearing. No acute distress. Well-developed and well-nourished. HEENT: Normocephalic and atraumatic. Skin: Warm and dry. No rashes or lesions noted. Neck: Full and painless range of motion. No cervical lymphadenopathy. Cardio: Regular rate and rhythm. No murmurs, gallops, or rubs. No lower extremity edema. No JVD. Pulmonary: No respiratory distress. No accessory muscle usage. Scattered rhonchorous breath sounds. Gastrointestinal: Soft, non-tender, and non-distended in all 4 quadrants. Normoactive bowel sounds in all 4 quadrants. Genitourinary: No CVA tenderness. Musculoskeletal: Normal range of motion in joints throughout the body. No deformity or other signs of injury. Neuro: Alert and oriented x4. Cranial nerves 2-12 grossly intact. No focal deficits appreciated. Psych: Normal mood and affect. Assessment & Plan Assessment & Plan (1) Acute exacerbation of chronic obstructive pulmonary disease (COPD): Code(s): J44.1 - Chronic obstructive pulmonary disease with (acute) exacerbation Plan: This is a 63-year-old male with history of COPD who presented to the walk-in clinic complaining of a persistent productive cough and shortness of breath with exertion times 2-3 weeks. On physical examination, the patient has diffuse rhonchorous breath sounds without significant wheezing. He is maintaining oxygen saturations on room air and he does not appear to be in any acute respiratory distress. History and physical most consistent with an acute COPD exacerbation with possible atypical pneumonia. Chest x-ray was obtained upon my read does not show any acute cardiopulmonary process. The patient was sent home on p.o. prednisone taper, p.o. azithromycin 500 mg today followed by 250 mg daily x4 days, and PO benzonatate 100 mg 3 times daily as needed for cough. Patient was instructed to follow-up here or proceed to the emergency room if he were to develop worsening shortness of breath, fever/chills, chest pain, or hemoptysis. Patient verbalizes understanding and he is in agreement with the plan. Orders: Orders XR chest 2V Today R05.9 - Cough, unspecified Medications: New prednisone Take 4 tablets daily x3 days followed by 3 tablets daily x3 days followed by 2 tablets daily x3 days followed by 1 tablet daily x3 days followed by 1/2 tablet daily x2 days 10 mg PO DIRECTED 31 tabs 0RF azithromycin For 250 mg dose pack: take 500 mg today (day 1), then 250 mg for 4 days (days 2-5) PO 6 tabs 0RF benzonatate 100 mg PO TID PRN 20 caps 0RF cough Coding Level of Care Code Est Pt Level 3 (49422) Diagnoses Acute exacerbation of chronic obstructive pulmonary disease (COPD) J44.1
[2023-05-29 09:43] VITALS: BP 130/70; PULSE 67; TEMP 36.4; O2SAT 96; BMI 37.0
== END 2023-05-29 11:00 | disposition home or self-care (01) ==
PROVIDERS: PCP Internal Medicine; Visit Provider Physician Assistant Medical
DX: J44.1 Chronic obstructive pulmonary disease with (acute) exacerbation (principal)
CPT/HCPCS: 99213

== ENCOUNTER 2023-05-29 10:11 | Outpatient (REF) | payer OTHER, SELFPAY ==
--- NOTE | ~2023-05-29 | XR_ITS ---
EXAMINATION: XR CHEST CLINICAL INFORMATION: Cough. COMPARISON: 08/13/2021 TECHNIQUE: 2 views of the chest were obtained. FINDINGS: A few opacities in the left lung are new compared to 08/13/2021. A new linear opacity of platelike atelectasis is present in the left midlung zone. On the lateral radiograph, there appears to be ill-defined patchy opacity of the superior segment of the left lower lobe. On the frontal radiograph, there is a questionable finding of a 1.5 cm nodule in the medial left lower lobe. No pulmonary edema or pleural effusion. Mildly enlarged cardiomediastinal silhouette has stable size and contour compared to 0 08/13 2021. Mild spondylosis of the thoracic spine. XR/XR chest 2V IMPRESSION: There is platelike atelectasis in the left midlung zone. Also, there appears to be ill-defined opacity from atelectasis or infiltrate in the superior segment of the left lower lobe as well as questionable nodule in the medial left lower lobe. If the patient clinically has pneumonia, then obtain PA/lateral chest radiographic follow-up in 6 weeks after medical treatment to ensure improvement of these abnormalities. Alternatively, if the cause of cough is clinically uncertain, consider obtaining chest CT evaluation.
== END 2023-05-29 10:12 | disposition home or self-care (01) ==
LOC: HO.HMGCX 10:11
PROVIDERS: PCP Internal Medicine; Visit Provider Physician Assistant Medical
DX: R05.9 Cough, unspecified (principal)
CPT/HCPCS: 71046

== ENCOUNTER 2023-06-01 08:44 | Outpatient (AMB) | payer OTHER, SELFPAY ==
--- NOTE | 2023-06-01 08:47 | A.OFFPC_ITS ---
Vital Signs 06/01/23 08:50 Height 6 ft Weight 266 lb BMI 36.1 BP 100/68 Blood Pressure Location Lt brachial Position Sitting Pulse 66 Pulse Source Pulse Oximeter Pulse Oximetry (%) 94 Oxygen Delivery Method Room Air Intake Visit Reasons: Annual PE Intake Note: Pt is here today for his PE: Last colonoscopy 02/27/10 Allergies oxycodone Allergy (Verified 06/01/23 08:59) Itching Sulfa (Sulfonamide Antibiotics) Allergy (Verified 06/01/23 08:59) Itching Medication List - Last Reconciled 06/01/23 by Priscila Hartman MD albuterol sulfate 90 mcg/actuation (Ventolin HFA) 1 inh inhalation QID PRN albuterol sulfate 90 mcg/actuation 2 puffs inhalation Q6H PRN amoxicillin 1,000 mg (2 x 500 mg) PO TID apixaban (Eliquis) 5 mg PO BID azithromycin For 250 mg dose pack: take 500 mg today (day 1), then 250 mg for 4 days (days 2-5) PO benzonatate 100 mg PO TID PRN betamethasone dipropionate 0.05% 1 appl topical DAILY PRN 10 days hydrochlorothiazide 12.5 mg PO QAM lisinopril 5 mg PO DAILY prednisone 10 mg PO DIRECTED sildenafil 100 mg PO DAILY PRN Tobacco use date assessed: 12/04/22 Fall risk assessment: No Falls in past year Last assessed Fall Risk: 06/01/23 Dental Screening Dental Screen Date: 06/01/23 Did you have a dental visit in the last 12 months?: Yes Did you have a dental problem in the last 6 months where you did not have access to dental care?: Yes Was dental information given to patient?: Patient has dentist HPI Annual PE HPI Details 63 year old male, recently diagnosed to have pneumonia a week ago and currently on amoxicillin, Z-Jose, tapering dose of prednisone, here today for his physical exam. Patient states that he has started started feeling better, coughing less, with no shortness of breath or fever. Chest x-ray done 05/29/2023 showed platelike atelectasis in left mid lung with ill-defined opacity from either atelectasis or infiltrate in the superior segment of left lower lobe as well as a questionable nodule in the medial left lower lobe measuring approximately 1.5 cm, which is new. He has history of pulmonary embolus and DVT in right peroneal vein, started on Eliquis 11/2022, found to be positive for factor 5 Leiden with heterozygous gene mutation, prothrombin gene mutation came back negative, there was no lupus anticoagulant detected. It was recommended he stay on Eliquis 2.5 mg twice a day until summer , and then consider to have prophylactic dose anticoagulation with apixaban 2.5 mg once a day afterwards. He had his last screening colonoscopy done by Dr. Ko in 2009 which showed presence of internal hemorrhoids and diverticulosis. Has COPD, currently using only Ventolin inhaler, has history of vitamin-D deficiency, hypertension and hyperlipidemia. 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 1. Little interest or pleasure in doing things: not at all 2. Feeling down, depressed, or hopeless: not at all 3. Trouble falling or staying asleep, or sleeping too much: not at all 4. Feeling tired or having little energy: not at all 5. Poor appetite or overeating: not at all 6. Feeling bad about yourself - or that you are a failure or have let yourself or your family down: not at all 7. Trouble concentrating on things, such as reading the newspaper or watching television: not at all 8. Moving or speaking so slowly that other people could have noticed. Or the opposite - being so fidgety or restless that you have been moving around a lot more than usual: not at all 9. Thoughts that you would be better off or of hurting yourself in some w ay: not at all Total score: 0 Depression Screening Interpretation: Negative Depression Screening Done: Yes 13312 - PHQ-9 Billing: Yes Source: Developed by Drs. Thom Foreman, Melody Ardon, Aamir Blevins and colleagues, with an educational aruna from [employer]. Thrive Questionnaire Date Thrive assessed: 06/01/23 I am a: Patient What is your living situation today?: I have a steady place to live Within the past 12 months, did the food you bought not last and you didn't have the money to get more?: Never true Within the past 12 months, did you worry whether your food would run out before you got money to buy more?: Never true Do you have trouble paying for medicines?: No Do you have trouble getting transportation to medical appointments?: No Do you have trouble paying your heating and electricity bill?: No Do you have trouble taking care of your child, family member or friend?: No Do you have trouble with day-to-day activities such as bathing, preparing meals, shopping, managing finances, etc.?: No Are you currently unemployed and looking for a job?: No Are you interested in more education?: No THRIVE Score: 0 AUDIT C Alcohol Use Questionnaire (AUDIT-C) 1. How often do you have a drink containing alcohol?: Monthly or less 2. How many drinks containing alcohol do you have on a typical day when you are drinking?: 1 or 2 3. How often do you have six or more drinks on one occasion?: Never Total Score: 1 JESSICA-7 AMB Questionnaire JESSICA-7 Date JESSICA - 7 assessed: 06/01/23 Feeling nervous, anxious, or on edge: 0 = Not at all Not being able to stop or control worryin = Not at all Worrying too much about different things: 0 = Not at all Trouble relaxin = Not at all Being so restless that it is hard to sit still: 0 = Not at all Becoming easily annoyed or irritable: 0 = Not at all Feeling afraid as if something awful might happen: 0 = Not at all Total JESSICA-7 score (0-4 normal; 5-9 mild; 10-14 moderate; 15-21 severe): 0 Source: Developed by Drs. Thom Foreman, Melody Ardon, Aamir Blevins and colleagues, with an educational aruna from [employer]. JESSICA-7 Assessment Billing JESSICA-7 Assessment Tool: JESSICA-7 Assessment 33203 Review of Systems Const Denies body aches, Denies fatigue, Denies fever(s), Denies headache(s) and Denies weakness Eyes Reports no additional complaints ENT Denies dizziness, Denies headache(s), Denies sinus pain and Denies sore throat Card Details: Recurrent swelling in both lower extremities towards the end of the day, resolves when he wakes up in the morning, has varicose veins in both lower extremities right more than the left Denies chest pain, Denies lightheadedness, Denies palpitations and Denies dyspnea Resp Denies chest congestion, Reports cough (Occasional), Denies excessive phlegm production, Denies pain on inspiration, Denies dyspnea and Reports wheezing (Occasional) GI Denies abdominal pain, Denies melena, Denies hematochezia, Denies change in bowel habits and Denies heartburn Reports as per HPI, Denies dysuria, Denies urinary frequency and Denies urinary urgency Musc Reports no additional complaints Skin/Breast Denies rash Neuro Denies dizziness, Denies headache(s) and Denies weakness Psych Reports no additional complaints Endo Denies fatigue, Denies polydipsia, Denies polyuria and Denies palpitations Ceasar/Lymph Denies easy bleeding and Denies easy bruising Aller/Immun Denies seasonal rhinorrhea and Reports wheezing (Occasional) Physical exam (Primary Care) Vital Signs: Last Vital Signs Pulse 66 06/01/23 08:50 BP 100/68 06/01/23 08:50 Pulse Ox 94 06/01/23 08:50 Oxygen Delivery Method Room Air 06/01/23 08:50 BMI result Body Mass Index 36.1 Tobacco/Smoking Status: Tobacco use Status Tobacco use date assessed 12/04/22 06/01/23 08:48 Patient Tobacco Use Status Never used Tobacco 06/01/23 08:48 e-Cigarette/Vaping Use Never Used 06/01/23 08:48 PHQ-9: PHQ-9 Score PHQ-9: Total score 0 06/01/23 10:13 Depression Screening Interpretation: Negative Thrive Assessment: Date of Thrive Assessment Date Thrive assessed 06/01/23 06/01/23 10:13 Const General: comfortable and no acute distress Nutritional Appearance: obese Orientation/consciousness: patient oriented x3 Neck Neck: Yes full ROM, Yes no lymphadenopathy and Yes supple Chest Chest palpation & inspection: normal inspection of the chest and normal p alpation of entire chest wall Resp Effort & Inspection: normal respiratory effort and able to speak in complete sentences Auscultation: no rales and wheezes (Occasional wheezing on left lower lung field) Cardio Rate: regular rate Rhythm: regular rhythm Heart sounds: S1 normal heart sound present and S2 normal heart sound present Peripheral pulses: Peripheral pulses 2+ throughout GI Inspection: Yes obesity Palpation (GI): Soft to palpation, nontender, no guarding and no masses Auscultation: normal bowel sounds General: Yes no CVA tenderness Male General Exam: Yes normal external exam Back/Spine/Pelvis Back: no CVA tenderness and No back tenderness Cervical Spine: cervical ROM normal Thoracic/Lumbar Spine: thoracic and lumbar spine normal to inspection and thoraco-lumbar ROM normal Skin General skin exam: no rashes or lesions noted Neuro General: patient oriented x3, gait normal, moves all extremities, Normal light touch and pain sensation and no focal motor deficits Extrem Other: Varicose veins noted in both lower extremities, right more than the left read ankle swelling noted bilaterally again right more than the left General: No no joint enlargement, Yes no calf tenderness and Yes normal gait Assessment and Plan Assessment & Plan (1) Annual visit for general adult medical examination with abnormal findings: Code(s): Z00.01 - Encounter for general adult medical examination with abnormal findings Plan: Advised patient to get fasting labs done, already ordered. Continue with regular dental visit every 6 months and regular eye exams, at least every 2 years. Take adequate calcium in diet and vitamin-D 3 at 2000 IU per cap once a day, in addition to weight-bearing exercises to help maintain good muscle tone and weight control. Instructed to do self testicular exam to check for any mass, declined getting further COVID booster, advised to get yearly flu shots, Prevnar 20 and tetanus booster once feeling better . Also recommended to get his shingles vaccination (2) Pulmonary nodule 1 cm or greater in diameter: Comment: left middle lobe Code(s): R91.1 - Solitary pulmonary nodule Plan: Repeat another chest x-ray in July 2023, if positive will order CT scan of chest (3) History of pneumonia: Code(s): Z87.01 - Personal history of pneumonia (recurrent) Plan: Currently on amoxicillin and azithromycin, as well as tapering dose of prednisone. Uses Ventolin inhaler as needed. Repeat another chest x-ray in July 2023 (4) Erectile dysfunction: Code(s): N52.9 - Male erectile dysfunction, unspecified Plan: Refill sent for sildenafil, to use only as directed (5) Vitamin D deficiency: Code(s): E55.9 - Vitamin D deficiency, unspecified Plan: Will check vitamin-D left (6) Colon cancer screening: Code(s): Z12.11 - Encounter for screening for malignant neoplasm of colon Plan: Cologuard testing ordered (7) Obesity (BMI 30-39.9): Code(s): E66.9 - Obesity, unspecified (8) Varicose veins of both lower extremities: Comment: Right more than the left Code(s): I83.93 - Asymptomatic varicose veins of bilateral lower extremities Plan: Advised to wear travel compression socks during the day and remove at night (9) Essential hypertension: Code(s): I10 - Essential (primary) hypertension Plan: Blood pressure at goal of less than 130/80. Continue with current medication. Reinforced importance of following a low sodium diet, getting regular exercise, and lowering stress levels. (10) Dyslipidemia: Code(s): E78.5 - Hyperlipidemia, unspecified Plan: Advised to do fasting lipid panel, already ordered, continue adherence to healthy eating habits, and regular exercise. (11) Factor 5 Leiden mutation, heterozygous: Comment: Seen by [facility], Dr. 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) use of anticoagulants Orders: Orders XR chest 4 views 08/02/23 R91.1 - Solitary pulmonary nodule, Z87.01 - Personal history of pneumonia (recurrent) Referrals Cologuard Test Z12.11 - Encounter for screening for malignant neoplasm of colon, Z12.12 - Encounter for screening for malignant neoplasm of rectum Medications: Refilled sildenafil administer 30 minutes to 4 hours before activity 100 mg PO DAILY PRN 10 tabs 0RF sexual activity Coding Level of Care Code Est Pt Prev Care >65y(87047) Diagnoses Annual visit for general adult medical examination with abnormal findings Z00.01 Pulmonary nodule 1 cm or greater in diameter R91.1 History of pneumonia Z87.01 Erectile dysfunction N52.9 Vitamin D deficiency E55.9 Colon cancer screening Z12.11 Obesity (BMI 30-39.9) E66.9 Varicose veins of both lower extremities I83.93 Essential hypertension I10 Dyslipidemia E78.5 Factor 5 Leiden mutation, heterozygous D68.51 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
[2023-06-01 08:50] VITALS: BP 100/68; PULSE 66; O2SAT 94; BMI 36.1
== END 2023-06-01 09:50 | disposition home or self-care (01) ==
PROVIDERS: PCP Internal Medicine; Visit Provider Internal Medicine
DX: Z00.00 Encounter for general adult medical examination without abnormal findings (principal); D68.51 Activated protein C resistance; R91.1 Solitary pulmonary nodule; Z87.01 Personal history of pneumonia (recurrent); N52.9 Male erectile dysfunction, unspecified; E55.9 Vitamin D deficiency, unspecified; Z12.11 Encounter for screening for malignant neoplasm of colon; E66.9 Obesity, unspecified; I83.93 Asymptomatic varicose veins of bilateral lower extremities; I10 Essential (primary) hypertension; E78.5 Hyperlipidemia, unspecified; Z79.01 Long term (current) use of anticoagulants
CPT/HCPCS: 99397

== ENCOUNTER 2023-06-06 09:49 | Outpatient (REF) | payer OTHER, SELFPAY ==
[2023-06-06 13:39] LABS: MANUAL DIFF FLAG NO
[2023-06-06 13:42] LABS: Basophils Percent Auto 0.3 % (0-2); Eosinophils Absolute Auto 0.1 X10*3/uL (0.0-0.4); Eosinophils Percent Auto 0.4 % (0-4); Hematocrit 43.3 % (42.0-52.0); Hemoglobin 14.1 g/dl (14.0-18.0); Imm Gran Abs Auto 0.07 X10*3/uL (0.00-0.03); Imm Gran Pct Auto 0.6 % (0.0-0.4); Lymphocytes Absolute Auto 2.9 X10*3/uL (1.2-4.9); Lymphocytes Percent Auto 24.6 % (20-40); Mean Corpuscular HGB Conc 32.6 g/dl (31.0-36.0); Mean Corpuscular Hemoglobin 29.3 pg (27.0-33.0); Mean Corpuscular Volume 89.8 fL (80.0-98.0); Mean Platelet Volume 11.2 fL (9.4-12.4); Monocytes Absolute Auto 0.7 X10*3/uL (0.1-1.2); Monocytes Percent Auto 6.4 % (2-11); Neutrophils Absolute Auto 7.8 x10*3/uL (2.0-8.3); Neutrophils Percent Auto 67.7 % (45-73); Platelet Count 232 X10*3/uL (160-400); Red Blood Count 4.82 X10*6/uL (4.60-5.80); Red Cell Distribution Width 15.6 % (11.0-16.0); White Blood Count 11.6 X10*3/uL (4.8-10.8)
[2023-06-06 13:56] LABS: Estimated Average Glucose 151 mg/dL; Hemoglobin A1c % 6.9 % (<6.0)
[2023-06-06 14:08] LABS: Alanine Aminotransferase 25 U/L (0-40); Anion Gap 14 (12-20); Aspartate Amino Transferase 14 U/L (5-37); Blood Urea Nitrogen 19 mg/dL (9-16); Calcium 9.2 mg/dL (8.4-10.2); Carbon Dioxide 30 mmol/L (22-29); Chloride 99 mmol/L (96-108); Cholesterol 196 mg/dL (<200); Estimated Glomerular Filt Rate > 60; Glucose Fasting 106 mg/dL (60-99); HDL Cholesterol 59 mg/dL (>40); LDL Cholesterol Calculated 117 mg/dL (<100); Potassium 3.9 mmol/L (3.3-5.1); Sodium 139 mmol/L (135-145); Triglycerides 100 mg/dL (<150)
[2023-06-06 14:11] LABS: PSA,Total (Free>4and<10) 2.15 ng/mL (0.00-4.00)
[2023-06-06 14:16] LABS: Vitamin D 25-OH Total 13.6 ng/mL (>30)
== END 2023-06-06 09:50 | disposition home or self-care (01) ==
LOC: HO.HMGCLDS 09:49
PROVIDERS: PCP Internal Medicine; Visit Provider Internal Medicine
DX: Z12.5 Encounter for screening for malignant neoplasm of prostate (principal); E66.9 Obesity, unspecified; I10 Essential (primary) hypertension; E78.5 Hyperlipidemia, unspecified; E55.9 Vitamin D deficiency, unspecified; Z79.01 Long term (current) use of anticoagulants
CPT/HCPCS: 36415; 80048; 80061; 82306; 83036; 84153; 84450; 84460; 85025

== ENCOUNTER 2023-08-05 16:05 | Outpatient (REF) | payer OTHER, SELFPAY ==
--- NOTE | ~2023-08-05 | XR_ITS ---
EXAMINATION: XR CHEST CLINICAL INFORMATION: Solitary pulmonary nodule COMPARISON: Chest 05/29/2023 TECHNIQUE: 5 views of the chest were obtained. FINDINGS: The lungs are well expanded and clear. No focal consolidation, interstitial pulmonary edema or pneumothorax. No pulmonary nodules identified. No pleural effusion. There is mild enlargement of the cardiac silhouette. There are mild multilevel degenerative changes of the thoracic spine. XR/XR chest 4 views IMPRESSION: 1. No acute abnormality. 2. No pulmonary nodules identified.
== END 2023-08-05 16:06 | disposition home or self-care (01) ==
LOC: HO.HMGCX 16:05
PROVIDERS: PCP Internal Medicine; Visit Provider Internal Medicine
DX: R91.1 Solitary pulmonary nodule (principal); Z87.01 Personal history of pneumonia (recurrent)
CPT/HCPCS: 71048

== ENCOUNTER 2023-09-12 11:04 | Outpatient (REF) | payer OTHER, SELFPAY ==
[2023-09-12 15:45] LABS: MANUAL DIFF FLAG NO
[2023-09-12 15:48] LABS: Basophils Absolute Auto 0.1 X10*3/uL (0.0-0.2); Basophils Percent Auto 0.9 % (0-2); Eosinophils Absolute Auto 0.3 X10*3/uL (0.0-0.4); Eosinophils Percent Auto 4.8 % (0-4); Hematocrit 44.9 % (42.0-52.0); Hemoglobin 14.4 g/dl (14.0-18.0); Imm Gran Abs Auto 0.03 X10*3/uL (0.00-0.03); Imm Gran Pct Auto 0.4 % (0.0-0.4); Lymphocytes Absolute Auto 1.9 X10*3/uL (1.2-4.9); Lymphocytes Percent Auto 27.6 % (20-40); Mean Corpuscular HGB Conc 32.1 g/dl (31.0-36.0); Mean Corpuscular Hemoglobin 28.5 pg (27.0-33.0); Mean Corpuscular Volume 88.9 fL (80.0-98.0); Mean Platelet Volume 11.2 fL (9.4-12.4); Monocytes Absolute Auto 0.7 X10*3/uL (0.1-1.2); Monocytes Percent Auto 9.8 % (2-11); Neutrophils Absolute Auto 3.9 x10*3/uL (2.0-8.3); Neutrophils Percent Auto 56.5 % (45-73); Platelet Count 191 X10*3/uL (160-400); Red Blood Count 5.05 X10*6/uL (4.60-5.80); Red Cell Distribution Width 15.3 % (11.0-16.0); White Blood Count 6.9 X10*3/uL (4.8-10.8)
[2023-09-12 16:00] LABS: Estimated Average Glucose 137 mg/dL; Hemoglobin A1c % 6.4 % (<6.0)
[2023-09-12 16:08] LABS: Anion Gap 11 (12-20); Blood Urea Nitrogen 15 mg/dL (9-16); Calcium 9.8 mg/dL (8.4-10.2); Carbon Dioxide 30 mmol/L (22-29); Chloride 103 mmol/L (96-108); Cholesterol 185 mg/dL (<200); Estimated Glomerular Filt Rate > 60; Glucose Fasting 107 mg/dL (60-99); HDL Cholesterol 44 mg/dL (>40); LDL Cholesterol Calculated 126 mg/dL (<100); Potassium 4.2 mmol/L (3.3-5.1); Sodium 140 mmol/L (135-145); Triglycerides 78 mg/dL (<150)
[2023-09-12 16:22] LABS: Vitamin D 25-OH Total 63.4 ng/mL (>30)
== END 2023-09-12 11:05 | disposition home or self-care (01) ==
LOC: HO.HMGCLDS 11:04
PROVIDERS: PCP Internal Medicine; Visit Provider Internal Medicine
DX: E55.9 Vitamin D deficiency, unspecified (principal); E66.9 Obesity, unspecified; E78.5 Hyperlipidemia, unspecified; E11.9 Type 2 diabetes mellitus without complications
CPT/HCPCS: 36415; 80048; 80061; 82306; 83036; 85025

== ENCOUNTER 2023-09-18 08:32 | Outpatient (AMB) | payer OTHER, SELFPAY ==
--- NOTE | 2023-09-18 08:39 | A.OFFPC_ITS ---
Intake Visit Reasons: f/u labs Andr. [phone] - see comment Allergies oxycodone Allergy (Verified 09/18/23 09:12) Itching Sulfa (Sulfonamide Antibiotics) Allergy (Verified 09/18/23 09:12) Itching Medication List - Last Reconciled 09/18/23 by Priscila Hartman MD albuterol sulfate 90 mcg/actuation 2 puffs inhalation Q6H PRN albuterol sulfate 90 mcg/actuation (Ventolin HFA) 1 inh inhalation QID PRN apixaban (Eliquis) 5 mg PO BID betamethasone dipropionate 0.05% 1 appl topical DAILY PRN 10 days cholecalciferol (vitamin D3) 1,250 mcg PO QWEEK 3 months hydrochlorothiazide 12.5 mg PO QAM lisinopril 5 mg PO DAILY sildenafil 100 mg PO DAILY PRN Symbicort 160-4.5 mcg/actuation (budesonide-formoterol) 2 puffs inhalation Q12H NS Tobacco use date assessed: 12/04/22 Dental Screening Dental Screen Date: 06/01/23 HPI f/u labs Andr. [phone] - see comment HPI Details 63-year-old male with diabetes mellitus, currently diet controlled and hyperlipidemia with history of factor 5 Leiden deficiency currently on Eliquis, here today for follow-up. He has been trying to follow recommended diet, but admits to not getting any exercise lately. Recent fasting labs showed elevated LDL cholesterol , but hemoglobin A1c now down to 6.4%. Has been feeling well with no complaints of any chest pain, no palpitations, no shortness of breath, no numbness or tingling or swelling in extremities. Recent fasting labs also showed vitamin-D now within normal limits, completed already taking 3 months of high-dose vitamin-D replacement. [facility] Medical History (Updated 09/18/23 @ 09:35 by Priscila Hartman MD) Type 2 diabetes mellitus without complication, with no history of insulin use History of pulmonary embolus (PE) History of DVT (deep vein thrombosis) Pulmonary nodule 1 cm or greater in diameter Current use of usp anticoagulation Factor 5 Leiden mutation, heterozygous Erectile dysfunction Vitamin D deficiency Colon cancer screening Obesity (BMI 30-39.9) Varicose veins of both lower extremities Eczema Dyslipidemia Essential hypertension Surgical History Hx of colonoscopy S/P anal fissurectomy Family History Father Diabetes mellitus Coronary artery disease Mother Dementia Sister No problems noted. 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 Thom Foreman, Melody Ardon, Aamir Blevins and colleagues, with an educational aruna from [employer]. Review of Systems Const Denies body aches, Denies fatigue, Denies fever(s), Denies headache(s) and Denie s weakness Eyes Reports no additional complaints ENT Denies dizziness, Denies headache(s), Denies sinus pain and Denies sore throat Card Details: Recurrent swelling in both lower extremities towards the end of the day, resolves when he wakes up in the morning, has varicose veins in both lower extremities right more than the left Denies chest pain, Denies lightheadedness, Denies palpitations and Denies dyspnea Resp Denies chest congestion, Denies excessive phlegm production, Denies pain on inspiration and Denies dyspnea GI Denies abdominal pain, Denies melena, Denies hematochezia, Denies change in bowel habits and Denies heartburn Denies dysuria, Denies urinary frequency and Denies urinary urgency Musc Reports no additional complaints Skin/Breast Denies rash Neuro Denies dizziness, Denies headache(s) and Denies weakness Psych Reports no additional complaints Endo Denies fatigue, Denies polydipsia, Denies polyuria and Denies palpitations Ceasar/Lymph Denies easy bleeding and Denies easy bruising Aller/Immun Denies seasonal rhinorrhea Physical exam (Primary Care) Tobacco/Smoking Status: Tobacco use Status Tobacco use date assessed 12/04/22 09/18/23 08:43 Patient Tobacco Use Status Never used Tobacco 09/18/23 08:43 e-Cigarette/Vaping Use Never Used 09/18/23 08:43 Thrive Assessment: Date of Thrive Assessment Date Thrive assessed 06/01/23 09/18/23 08:43 Telehealth Telehealth Telehealth Platform: [employer] Location of provider rendering services: practice address Location of patient: address on file Patient Identification confirmed using: Name, : Yes Telehealth method: video Patient verbally consented to treatment: Yes Patient verbally consented to billing insurance company: Yes Patient informed of any privacy concerns related to visit: Yes Minutes spent on Phone/Video with Pt.: 15 Results Reviewed Results Reviewed: Laboratory Tests 06/06/23 09/12/23 10:05 11:00 Estimat Average Glucose 151 137 Hemoglobin A1c % 6.9 H 6.4 H me: Derick Fields Age/Sex: 63/M : 1960 Unit#: [id number] Attend Dr: Priscila Hartman MD Re09/12/23 Status: DEP REF Location: [facility] Disch: SPEC : [id number] ODETTE: 09/12/23 STATUS: COMP REQ : [id number] RECD: 09/12/23-[address]: Priscila Hartman MD COMP: 09/12/23-1105 ENTERED: 09/12/23-[address]: ORDERED: CBC Auto Diff Test Result Flag Reference WBC 6.9 4.8-10.8 X10*3/uL RBC 5.05 4.60-5.80 X10*6/uL HGB 14.4 14.0-18.0 g/dl HCT 44.9 42.0-52.0 % MCV 88.9 80.0-98.0 fL MCH 28.5 27.0-33.0 pg MCHC 32.1 31.0-36.0 g/dl RDW 15.3 11.0-16.0 % PLT 191 160-400 X10*3/uL MPV 11.2 9.4-12.4 fL Neut Pct Auto 56.5 45-73 % ImGran Pct Auto 0.4 0.0-0.4 % Lymp Pct Auto 27.6 20-40 % Salem Pct Auto 9.8 2-11 % Eos Pct Auto 4.8 H 0-4 % Baso Pct Auto 0.9 0-2 % NRBC Pct Auto 0.0 0.0-0.2 /100WBC ANC Neut Abs # 3.9 2.0-8.3 x10*3/uL ImGran Abs Auto 0.03 0.00-0.03 X10*3/uL Lymph Abs Auto 1.9 1.2-4.9 X10*3/uL Salem Abs Auto 0.7 0.1-1.2 X10*3/uL Eos Abs Auto 0.3 0.0-0.4 X10*3/uL Baso Abs Auto 0.1 0.0-0.2 X10*3/uL NRBC Abs Auto 0.000 0.0-0.012 X10*3/uL RUN: 09/18/23 0911 PAGE 1 [facility] [address] [place] [id number] In Shop Service Technician: Jonathan Rossi M.D. Specimen Inquiry Name: Derick Fields Age/Sex: 63/M : 1960 Unit#: [id number] Attend Dr: Priscila Hartman MD Re09/12/23 Status: DEP REF Location: [facility] Disch: SPEC : [id number] ODETTE: 09/12/23 STATUS: COMP REQ : [id number] RECD: 09/12/[address]: Priscila Hartman MD COMP: 09/12/23 ENTERED: 09/12/[address]: ORDERED: Met Prof Fast, Lipid Panel, Vitamin D 25-OH Test Result Flag Reference Sodium 140 135-145 mmol/L Potassium 4.2 3.3-5.1 mmol/L CL 103 96-108 mmol/L CO2 30 H 22-29 mmol/L Gap 11 L 12-20 BUN 15 9-16 mg/dL Creat 0.83 0.5-1.4 mg/dL EGFR > 60 NOTE: For -[place] individuals, multiply the result by 1.210. Chronic Kidney Disease: Estimated GFR < 60 mL/min/1.73m2 Severe Kidney Disease: Estimated GFR < 15 mL/min/1.73m2 FBS 107 H 60-99 mg/dL A fasting glucose from 100-125 mg/dl is considered impaired (pre-diabetes). CA 9.8 # 8.4-10.2 mg/dL Triglyceride 78 <150 mg/dL Desirable Triglyceride: less than 150 mg/dL Borderline High Triglyceride 150-199 mg/dL High Triglyceride: 200-499 mg/dL Very High Triglyceride: greater than or equal to 5OO mg/dL Cholesterol 185 <200 mg/dL Desirable Cholesterol: less than 200 mg/dL Borderline High Cholesterol: 200-239 mg/dL High Cholesterol: greater than 239 mg/dL LDL Calculated 126 H <100 mg/dL Desirable LDL: less than 100 mg/dL Near Optimal/Above Optimal LDL: 110-129 mg/dL Borderline High LDL: 130-159 mg/dL High LDL: 160-189 mg/dL Very High LDL: greater than or equal to 190 mg/dL HDL 44 >40 mg/dL Desirable HDL: greater than 40 mg/dL Note: This HDL assay may give artificially low results in patients with liver disease. Vit D 25-OH Tot 63.4 >30 ng/mL Health Based Reference Values* < 20 ng/mL Deficient 20-30 ng/mL Insufficient > 30 ng/mL Sufficient Assessment and Plan Assessment & Plan (1) Dyslipidemia: Code(s): E78.5 - Hyperlipidemia, unspecified Plan: Reviewed recent fasting lab results with patient with elevated LDL cholesterol and low HDL cholesterol. Will start on rosuvastatin 5 mg per tablet to take 1 tablet initially it every other day dosing. Reinforced importance of following a low-cholesterol diet and start exercising at least do 15 minutes of cardio daily. Will recheck another fasting lipid panel in 3 months (2) Type 2 diabetes mellitus without complication, with no history of insulin use: Code(s): E11.9 - Type 2 diabetes mellitus without complications Plan: Improvement in diabetes control with hemoglobin A1c at 6.4%. Patient would like to continue trying controlling his diabetes through diet and exercise. Will repeat another hemoglobin A1c and urine microalbumin in 3 months Orders: Orders Lipid Panel 12/15/23 E11.9 - Type 2 diabetes mellitus without complications, E78.5 - Hyperlipidemia, unspecified, I10 - Essential (primary) hypertension Basic Metabolic Panel Fasting 12/15/23 E11.9 - Type 2 diabetes mellitus without complications, E78.5 - Hyperlipidemia, unspecified, I10 - Essential (primary) hypertension Alanine Aminotransferase 12/15/23 E11.9 - Type 2 diabetes mellitus without complications, E78.5 - Hyperlipidemia, unspecified, I10 - Essential (primary) hypertension Aspartate Amino Transferase 12/15/23 E11.9 - Type 2 diabetes mellitus without complications, E78.5 - Hyperlipidemia, unspecified, I10 - Essential (primary) hypertension Microalbumin, Random (w Creat) 12/15/23 E11.9 - Type 2 diabetes mellitus without complications, E78.5 - Hyperlipidemia, unspecified, I10 - Essential (primary) hypertension Medications: New rosuvastatin 5 mg PO Q2D 45 tabs 2RF 90 days E11.9 - Type 2 diabetes mellitus without complications, E78.5 - Hyperlipidemia, unspecified Coding Level of Care Code Tele Est Pt Level 4 (22417) Diagnoses Dyslipidemia E78.5 Type 2 diabetes mellitus without complication, with no history of insulin use E11.9
== END 2023-09-18 10:27 | disposition home or self-care (01) ==
LOC: HO.HMGC 08:32
PROVIDERS: PCP Internal Medicine; Visit Provider Internal Medicine
DX: E78.5 Hyperlipidemia, unspecified (principal); E11.9 Type 2 diabetes mellitus without complications
CPT/HCPCS: 99214

== ENCOUNTER 2023-11-28 11:30 | Outpatient (AMB) | payer OTHER, SELFPAY ==
--- OUTSIDE RECORDS SUMMARY | 2023-11-28 11:31 | XMS_ITS ---
Author Organization [facility] Address [address] [place] [address] Care Team Providers Care Superintendent Building Name Role Phone Devan THOMAS, Priscila Hawkins Primary Care Provider Un available Garry Hassan Unavailable [phone] Julia Cook Unavailable [phone] ALLERGIES Allergen (clinical drug ingredient) Drug/Non Drug Allergy documented on EMR Reaction Allergy Type Onset Date Status sulfamethoxazole / trimethoprim Bactrim Unknown Drug Allergy Active Sulfamethoxazole Unknown Drug Allergy Active oxycodone Oxycodone Unknown Drug Allergy Active REASON FOR VISIT Pcp-07/07, Painful nail(s) aggrevated by shoes causing difficulty standing/walking, Skin Problem, Wart(s) MEDICATIONS Medication SIG (Take, Route, Frequency, Duration) Notes Start Date End Date Status Betamethasone Dipropionate 0.05 % 1 application Externally Once a day Unknown Betamethasone Active eliquis Active Lisinopril 0.5 1 tablet Orally Once a day Active hydroCHLOROthiazide Active Ciclopirox Olamine 0.77 % 1 application Externally Twice a day for 30 days Active SOCIAL HISTORY Tobacco Use: Social History Observation Description Date Details (start date - stop date) Never Smoker NA - NA Sex Assigned At : Social History Observation Description Sex Assigned At Unknown Tobacco Use/Smoking Question Answer Notes Are you a: nonsmoker Additional Findings: Tobacco Non-User Current no n-smoker Alcohol Screen Question Answer Notes Did you have a drink containing alcohol in the p ast year? Yes Points 0 Interpretation Negative Tobacco use other than smoking: Question Answer Notes Are you an other tobacco user? No PROBLEMS Problem Type ICD Code Onset Dates Problem Status W/U Status Risk SNOMED Code Notes Problem Plantar wart (B07.0) Active confirmed Plantar wart (23984290) VITAL SIGNS Height 6 ft in 08/25/2023 Weight 260 lbs 08/25/2023 BMI 35.26 kg/m2 08/25/2023 Encounters Encounter Location Date Provider Diagnosis [facility] [address] [place] [address] 08/25/2023 Julia Cook Tinea pedis of both feet B35.3 ; Plantar wart B07.0 ; Tinea unguium B35.1 ; Pain in right toe(s) M79.674 ; Pain in left toe(s) M79.675 and Left foot pain M79.672 ASSESSMENTS Encounter Date Diagnosis Assessment Notes Treatment Notes Treatment Clinical Notes 08/25/2023 Tinea pedis of both feet (ICD-10 - B35.3) 08/25/2023 Plantar wart (ICD-10 - B07.0) 08/25/2023 Tinea unguium (ICD-10 - B35.1) 08/25/2023 Pain in right toe(s) (ICD-10 - M79.674) 08/25/2023 Pain in left toe(s) (ICD-10 - M79.675) 08/25/2023 Left foot pain (ICD-10 - M79.672) PLAN OF TREATMENT Medication Medication Name Sig Start Date Stop Date Notes Ciclopirox Olamine 0.77 % 1 application Externally Twice a day for 30 days Next Appt Details Follow Up: prn, Reason: Procedure Notes * Category Sub-Category Detail Notes Wart Treatment Procedure Verrucae were de brided to pin-point bleeding margins with sterile 15 surgical blade, silver nitrate chemocautery applied, recomm. immune-boosting meds such as zinc, recomm. follow up with topical chemosurgical agents, Pt defers any other forms of tx (77585) Debride Nail 6-10 Nail debridement Nail debridem ent performed extensively to reduce/remove overall nail length, girth, thickness, subungual debris, and necrotic tissue, by manual and electrical means through the use of a nail nipper and/or dremel, to more viable healthy nail plate or bed tissue 1-5. Silver nitrate used for any petechial bleeding as necessary. Patient chooses, no pharmaceutical tx (41379) Progress Notes * Examination Category Sub-Category Detail Notes Neurological SENSORY: Neurological exa m reveals intact sensorium, pain sensation normal, vibration sensation intact, pinprick sensation is normal in the lower extremities, Pt denies, anesthesia, burning, paresthesia, tingling, B/L DEEP TENDON REFLEXES: Achilles, 2/4, B/L Dermatologic SKIN FINDINGS: Skin shows sign( s) of, erythema, scaling, in a moccasin fashion, no fissure(s) present, B/L VERRUCA: Reveals a Single , m ulti-loculated , mosaic-patterned, round, raised, flat-topped, petechial bleeding papule(s), with cauliflower appearance and interruption of skin lines, pain to lateral compression, and size estimated at 2mm diameter plantar Forefoot LEFT Orthopedic FOOT MORPHOLOGY: B/L Pes Planus structure DIGITAL DEFORMITIES: Digital contracture , PIPJ, 2-5 B/L, incompl-reducible with WB, or to push-up test, no over, nor underlapping MUSCLE STRENGTH: 5/5 all groups in a symmetrical fashion , B/L General Examination GENERAL APPEARANCE: Reveals a pleasant, alert, well- nourished, well-developed, well hydrated individual, who demonstrates proper attention to hygiene/body habitus, and is in no acute distress, Pt serves as own historian for office visit today ORIENTED: person, place, and t regi Vascular DP PULSES(B): 3/4, B/L PT PULSES(B): 3/4, B/L CAPILLARY FILL TIME: immediate, all digi ts, B/L TEMPERTURE GRADIENT(C): warm to cool, pr oximal to distal, B/L TROPHIC CONDITION-TEXTURE/ELASTICITY/TURGOR/HAIR GROWTH(B): normal, B/L EDEMA(C): absent, B/L PIGMENTATION: normal, B/L Nails NAILS are: Elongated, overg rown, dystrophic, lytic, greater than 3mm thick, discolored and friable with crumbly malodorous subungual debris, with pain on palpation 1-5 B/L History and Physical Notes * HPI (History of Present Illness) Category Sub-Category Detail Notes Painful Nails Pt States Last PCP Visit: Date:: 024 Skin problems Nature: scaling rednes s Location: B/L Duration: several days Course: worse Pt States PCP Visit: DATE: 06/24/2023
--- OUTSIDE RECORDS SUMMARY | 2023-11-28 11:31 | XMS_ITS ---
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
--- OUTSIDE RECORDS SUMMARY | 2023-11-28 11:31 | XMS_ITS ---
Author Organization [facility] Address [address] [place] [address] Care Team Providers Care Child Care Education Coordinator Name Role Phone Devan THOMAS, Priscila Hawkins Primary Care Provider Un available Garry Hassan Unavailable [phone] Julia Cook Unavailable [phone] REASON FOR VISIT No Paperwork Encounters Encounter Location Date Provider Diagnosis [facility] [address] [place] [address] 06/26/2023 Julia Cook PLAN OF TREATMENT No Information
--- OUTSIDE RECORDS SUMMARY | 2023-11-28 11:32 | XMS_ITS | Patient Health Record ---
Author Organization [facility] Address [address] [place] [address] Care Team Providers Care Yard Hostler Name Role Phone Devan THOMAS, Priscila Primary Care Provider Thom Gaines Unavailable [phone] REASON FOR REFERRAL No Information SOCIAL HISTORY Sex Assigned At : Social History Observation Description Sex Assigned At Unknown PLAN OF TREATMENT No Information Insurance Providers Payer Name Payer Address Payer Phone Subscriber Number Group Number Insured Name Patient Relationship to Insured Coverage Start Date Coverage End Date [facility] [address] [address] [place], [place] [id number] RAMIRO JAMES Self - patient is the insured
--- OUTSIDE RECORDS SUMMARY | 2023-11-28 11:32 | XMS_ITS | Patient Health Record ---
Author Organization [facility] Address [address] [place] [address] Care Team Providers Care Shoemaking Finisher Name Role Phone Devan THOMAS, Priscila Hawkins Primary Care Provider Un available Garry Hassan Unavailable [phone] DomJulia viera Unavailable [phone] ALLERGIES Allergen (clinical drug ingredient) Drug/Non Drug Allergy documented on EMR Reaction Allergy Type Onset Date Status sulfamethoxazole / trimethoprim Bactrim Unknown Drug Allergy Active Sulfamethoxazole Unknown Drug Allergy Active oxycodone Oxycodone Unknown Drug Allergy Active REASON FOR REFERRAL No Information MEDICATIONS Medication [...] Plantar wart (B07.0) Active confirmed Plantar wart (55337967) Problem Other hammer toe(s) (acquired), left foot (M20.42) Active confirmed Acquired hammer toe of left foot ([id number]) VITAL SIGNS Height 6 ft in 08/25/2023 Weight 260 lbs 08/25/2023 BMI 35.26 kg/m2 08/25/2023 Encounters Encounter Location Date Provider Diagnosis [facility] [address] 06/26/2023 Julia Cook [facility] [address] 07/21/2023 Garry [facility] [address] 08/25/2023 Julia Cook Tinea pedis of both feet B35.3 ; Plantar wart B07.0 ; Tinea unguium B35.1 ; Pain in right toe(s) M79.674 ; Pain in left toe(s) M79.675 and Left foot pain M79.672 ASSESSMENTS Encounter Date Diagnosis Assessment Notes Treatment Notes Treatment Clinical Notes 08/25/2023 Plantar wart (ICD-10 - B07.0) 08/25/2023 Tinea pedis of both feet (ICD-10 - B35.3) 08/25/2023 Tinea unguium (ICD-10 - B35.1) 08/25/2023 Pain in right toe(s) (ICD-10 - M79.674) 08/25/2023 Pain in left toe(s) (ICD-10 - M79.675) 08/25/2023 Left foot pain (ICD-10 - M79.672) PLAN OF TREATMENT Pending Test Test Name Order Date X ray : Foot, left 3V 05/25/2019 Insurance Providers Payer Name Payer Address Payer Phone Subscriber Number Group Number Insured Name Patient Relationship to Insured Coverage Start Date Coverage End Date [facility] [address] [place] [place] [id number] Derick Fields Self - patient is the insured MEDICAL (GENERAL) HISTORY Medical History History ICD Code High blood pressure Measles blood clots Surgical History Surgery Date(Month/Year) Hospitalization History Reason Date(Month/[facility]) [facility] Blood clot[facility] lung clot 2022 [facility] Respiratory infection 08/01
--- NOTE | 2023-11-28 11:47 | AM.OFFWIN_ITS ---
Intake Vital Signs 11/28/23 11:57 Weight 258 lb BP 122/84 Blood Pressure Location Rt brachial Position Sitting Pulse 68 Pulse Source Pulse Oximeter Temp 98.3 F Temp Source Oral Pulse Oximetry (%) 98 Oxygen Delivery Method Room Air Intake Visit Reasons: EP cold symp, SOB, wheezing Intake Note: Patient here for SOB,wheezing, cough and congestion thats been present for a couple of days Patient Tobacco Use Status: Never used Tobacco Allergies oxycodone Allergy (Verified 11/28/23 11:58) Itching Sulfa (Sulfonamide Antibiotics) Allergy (Verified 11/28/23 11:58) Itching Do you need a note to return to daycare/school/sports/work: No HPI HPI Comments History of Present Illness Details 63 y/o male patient who presents to the walk in clinic with c/o SOB, wheezing, cough and chest tightness x 2 days. Pt has h/o COPD and usually takes Symbicort daily, but ran out of refills. He was recently seen at a local ED in [place] for the similar symptoms ~ 1.5 months ago. He was then prescribed Prednisone and Oral Abx. He reports that he felt better for few weeks, then symptoms returned. Reports that he has not been feeling himself for few months now. He seems to be having trouble fighting off Respiratory infections. [facility] Medical History (Updated 11/28/23 @ 16:00 by Meghann Copeland NP) COPD with acute exacerbation Type 2 diabetes mellitus without complication, with no history of insulin use History of pulmonary embolus (PE) History of DVT (deep vein thrombosis) Pulmonary nodule 1 cm or greater in diameter Current use of senior living anticoagulation Factor 5 Leiden mutation, heterozygous Erectile dysfunction Vitamin D deficiency Colon cancer screening Obesity (BMI 30-39.9) Varicose veins of both lower extremities Eczema Dyslipidemia Essential hypertension Surgical History Hx of colonoscopy S/P anal fissurectomy Family History Father Diabetes mellitus Coronary artery disease Mother Dementia Sister No problems noted. 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 Cognitive needs: No Hearing needs: No Vision needs: Yes Review of Systems Const All systems reviewed & are unremarkable except as noted in HPI and below Physical Exam Vital Signs: Last Vital Signs Temp 98.3 F 11/28/23 11:57 Pulse 68 11/28/23 11:57 BP 122/84 11/28/23 11:57 Pulse Ox 98 11/28/23 11:57 Oxygen Delivery Method Room Air 11/28/23 11:57 Const General: cooperative and no acute distress Nutritional Appearance: obese Orientation/consciousness: patient oriented x3 HEENT Head: Yes normocephalic Ears: external ears normal and TM's normal bilaterally Face and sinus: Yes sinuses nontender Mouth: moist mucous membranes Throat: Yes postnasal drainage Resp Effort & Inspection: normal respiratory effort Auscultation: no crackles, no rales, rhonchi and wheezes Cardio Heart sounds: S1 normal heart sound present and S2 normal heart sound present Neuro General: patient oriented x3, gait normal and moves all extremities Psych Speech and movement: Normal speech and movement present Assessment & Plan Assessment & Plan (1) Cough in adult: Code(s): R05.9 - Cough, unspecified Plan: Ordered Chest Xray Ordered Prednisone Refilled Symbicort (2) Wheezing on auscultation: Code(s): R06.2 - Wheezing Plan: Ordered Chest Xray Ordered Prednisone Refilled Symbicort (3) COPD with acute exacerbation: Code(s): J44.1 - Chronic obstructive pulmonary disease with (acute) exacerbation Plan: Ordered Chest Xray Ordered Prednisone Refilled Symbicort Orders: Orders SARS-CoV2/FLU/RSV Today J06.9 - Acute upper respiratory infection, unspecified XR chest 2V Today R05.9 - Cough, unspecified, R06.2 - Wheezing Medications: New doxycycline hyclate 100 mg PO BID 10 days 20 caps 0RF J44.1 - Chronic obstructive pulmonary disease with (acute) exacerbation, R05.9 - Cough, unspecified, R06.2 - Wheezing prednisone 50 mg PO DAILY 5 days 5 tabs 0RF J44.1 - Chronic obstructive pulmonary disease with (acute) exacerbation, R05.9 - Cough, unspecified, R06.2 - Wheezing Refilled Symbicort 160-4.5 mcg/actuation (budesonide-formoterol) 2 puffs inhalation Q12H 10.2 grams 0RF NS J44.1 - Chronic obstructive pulmonary disease with (acute) exacerbation, R05.9 - Cough, unspecified, R06.2 - Wheezing Coding Level of Care Code Est Pt Level 4 (82936) Diagnoses Cough in adult R05.9 Wheezing on auscultation R06.2 COPD with acute exacerbation J44.1 Time Spent (min) 20
[2023-11-28 11:57] VITALS: BP 122/84; PULSE 68; TEMP 36.8; O2SAT 98
== END 2023-11-28 13:46 | disposition home or self-care (01) ==
PROVIDERS: PCP Internal Medicine; Visit Provider Nurse Practitioner Family
DX: R05.9 Cough, unspecified (principal); R06.2 Wheezing; J44.1 Chronic obstructive pulmonary disease with (acute) exacerbation
CPT/HCPCS: 99214

== ENCOUNTER 2023-11-28 11:59 | Outpatient (REF) | payer OTHER, SELFPAY ==
[2023-11-28 14:30] LABS: Influenza A PCR NEGATIVE (Negative); Influenza B PCR NEGATIVE (Negative); Resp Syncy Virus RNA Qual PCR NEGATIVE (Negative); SARS COV2 PCR INHOUSE NEGATIVE (Negative)
== END 2023-11-28 12:00 | disposition home or self-care (01) ==
LOC: HO.LNP 11:59
PROVIDERS: Visit Provider Nurse Practitioner Family
DX: J06.9 Acute upper respiratory infection, unspecified (principal)
CPT/HCPCS: 0241U

== ENCOUNTER 2023-11-28 13:03 | Outpatient (REF) | payer OTHER, SELFPAY ==
--- NOTE | ~2023-11-28 | XR_ITS ---
EXAMINATION: XR CHEST CLINICAL INFORMATION: Chronic cough and shortness of breath. COMPARISON: Chest x-ray August 05, 2023 TECHNIQUE: 2 views of the chest were obtained. FINDINGS: Similar cardiac prominence. The lungs are well aerated. Mild asymmetric elevation of the right hemidiaphragm is again noted. Subtle linear opacities of the right lung base most suggestive of atelectasis. No gross lobar consolidation. No pleural effusion or pneumothorax. Moderate degenerative changes of the spine. XR/XR chest 2V IMPRESSION: Suspected right basilar atelectasis. Electronically signed by: Kyrie Champagne MD 11/29/2023 09:06 AM EDT
== END 2023-11-28 13:04 | disposition home or self-care (01) ==
LOC: HO.HMGCX 13:03
PROVIDERS: PCP Internal Medicine; Visit Provider Nurse Practitioner Family
DX: R05.9 Cough, unspecified (principal); R06.2 Wheezing
CPT/HCPCS: 71046

== ENCOUNTER 2023-12-15 12:53 | Outpatient (AMB) | payer OTHER, SELFPAY ==
--- NOTE | 2023-12-15 13:33 | MHC.PC.OV ---
Vital Signs 12/15/23 13:34 Height 6 ft Weight 258 lb BMI 35.0 BP 116/70 Blood Pressure Location Lt brachial Position Sitting Pulse 78 Pulse Source Pulse Oximeter Pulse Oximetry (%) 96 Oxygen Delivery Method Room Air Intake Visit Reasons: F/U lipids, diabetes mellitus, HTN, fasting labs Intake Note: Patient here for DM f/u. Allergies oxycodone Allergy (Verified 12/17/23 14:38) Itching Sulfa (Sulfonamide Antibiotics) Allergy (Verified 12/17/23 14:38) Itching Medication List - Last Reconciled 12/15/23 by Priscila Hartman MD albuterol sulfate 90 mcg/actuation 2 puffs inhalation Q6H PRN albuterol sulfate 90 mcg/actuation (Ventolin HFA) 1 inh inhalation QID PRN apixaban (Eliquis) 5 mg PO BID betamethasone dipropionate 0.05% 1 appl topical DAILY PRN 10 days cholecalciferol (vitamin D3) 1,250 mcg PO QWEEK 3 months hydrochlorothiazide 12.5 mg PO QAM hydrochlorothiazide 12.5 mg PO DAILY lisinopril 5 mg PO DAILY rosuvastatin 5 mg PO Q2D 90 days sildenafil 100 mg PO DAILY PRN Symbicort 160-4.5 mcg/actuation (budesonide-formoterol) 2 puffs inhalation Q12H NS Tobacco use date assessed: 12/15/23 Fall risk assessment: No Falls in past year Last assessed Fall Risk: 12/15/23 Dental Screening Dental Screen Date: 06/01/23 HPI F/U lipids, diabetes mellitus, HTN, fasting labs HPI Details 63-year-old male with hypertension, diabetes mellitus, hyperlipidemia and factor 5 laden mutation carrier, here today for follow-up. He has been taking his medications as directed, has been compliant with diet and has been exercising regularly. 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 Depression Screening Interpretation: Negative Depression Screening Done: Yes Source: Developed by Drs. Thom Foreman, Melody Ardon, Aamir Blevins and colleagues, with an educational aruna from [employer]. Thrive Questionnaire Date Thrive assessed: 12/08/23 I am a: Patient What is your living situation today?: I have a steady place to live Within the past 12 months, did the food you bought not last and you didn't have the money to get more?: I choose not to answer this question Within the past 12 months, did you worry whether your food would run out before you got money to buy more?: Never true Do you have trouble paying for medicines?: I choose not to answer this question Do you have trouble getting transportation to medical appointments?: No Do you have trouble paying your heating and electricity bill?: I choose not to answer this question Do you have trouble taking care of your child, family member or friend?: I choose not to answer this question Do you have trouble with day-to-day activities such as bathing, preparing meals, shopping, managing finances, etc.?: No Are you interested in more education?: No Please select the resources that you would like help with: None Currently or been in a relationship where the following occur: No concerns reported THRIVE Score: 0 AUDIT C Alcohol Use Questionnaire (AUDIT-C) 1. How often do you have a drink containing alcohol?: Monthly or less 2. How many drinks containing alcohol do you have on a typical day when you are drinking?: 1 or 2 3. How often do you have six or more drinks on one occasion?: Less than monthly Total Score: 2 JESSICA-7 AMB Questionnaire JESSICA-7 Date JESSICA - 7 assessed: 06/01/23 Feeling nervous, anxious, or on edge: 0 = Not at all Not being able to stop or control worryin = Not at all Worrying too much about different things: 0 = Not at all Trouble relaxin = Not at all Being so restless that it is hard to sit still: 0 = Not at all Becoming easily annoyed or irritable: 0 = Not at all Feeling afraid as if something awful might happen: 0 = Not at all Total JESSICA-7 score (0-4 normal; 5-9 mild; 10-14 moderate; 15-21 severe): 0 Source: Developed by Drs. Thom Foreman, Melody Ardon, Aamir Blevins and colleagues, with an educational aruna from [employer]. Review of Systems Const Denies body aches, Denies fatigue, Denies fever(s), Denies headache(s) and Denies weakness Eyes Reports no additional complaints ENT Denies dizziness, Denies headache(s), Denies sinus pain and Denies sore throat Card Details: Recurrent swelling in both lower extremities towards the end of the day, resolves when he wakes up in the morning, has varicose veins in both lower extremities right more than the left Denies chest pain, Denies lightheadedness, Denies palpitations and Denies dyspnea Resp Denies chest congestion, Denies excessive phlegm production, Denies pain on inspiration and Denies dyspnea GI Denies abdominal pain, Denies melena, Denies hematochezia, Denies change in bowel habits and Denies heartburn Denies dysuria, Denies urinary frequency and Denies urinary urgency Musc Reports no additional complaints Skin/Breast Denies rash Neuro Denies dizziness, Denies headache(s) and Denies weakness Psych Reports no additional complaints Endo Denies fatigue, Denies polydipsia, Denies polyuria and Denies palpitations Ceasar/Lymph Denies easy bleeding and Denies easy bruising Aller/Immun Denies seasonal rhinorrhea Physical exam (Primary Care) Vital Signs: Last Vital Signs Pulse 78 12/15/23 13:34 BP 116/70 12/15/23 13:34 Pulse Ox 96 12/15/23 13:34 Oxygen Delivery Method Room Air 12/15/23 13:34 BMI result Body Mass Index 35.0 Tobacco/Smoking Status: Tobacco use Status Tobacco use date assessed 12/15/23 12/15/23 13:40 Patient Tobacco Use Status Never used Tobacco 12/15/23 13:36 e-Cigarette/Vaping Use Never Used 12/15/23 13:36 Depression Screening Interpretation: Negative Thrive Assessment: Date of Thrive Assessment Date Thrive assessed 12/08/23 12/15/23 13:36 Currently or been in a relationship where the following occur: No concerns reported Const General: comfortable and no acute distress Nutritional Appearance: obese Orientation/consciousness: patient oriented x3 Neck Neck: Yes full ROM, Yes no lymphadenopathy and Yes supple Chest Chest palpation & inspection: normal inspection of the chest and normal palpation of entire chest wall Resp Effort & Inspection: normal respiratory effort and able to speak in complete sentences Auscultation: no rales and wheezes (Occasional wheezing on left lower lung field) Cardio Rate: regular rate Rhythm: regular rhythm Heart sounds: S1 normal heart sound present and S2 normal heart sound present Peripheral pulses: Peripheral pulses 2+ throughout GI Inspection: Yes obesity Palpation (GI): Soft to palpation, nontender, no guarding and no masses Auscultation: normal bowel sounds General: Yes no CVA tenderness Male General Exam: Yes normal external exam Back/Spine/Pelvis Back: no CVA tenderness and No back tenderness Cervical Spine: cervical ROM normal Thoracic/Lumbar Spine: thoracic and lumbar spine normal to inspection and thoraco-lumbar ROM normal Skin General skin exam: no rashes or lesions noted Neuro General: patient oriented x3, gait normal, moves all extremities, Normal light touch and pain sensation and no focal motor deficits Extrem Other: Varicose veins noted in both lower extremities, right more than the left read ankle swelling noted bilaterally again right more than the left General: No no joint enlargement, Yes no calf tenderness and Yes normal gait Results Reviewed Results Reviewed: Laboratory Tests 09/12/23 11:00 Estimat Average Glucose 137 Hemoglobin A1c % 6.4 H Name: Derick Fields Age/Sex: 63/M : 1960 Unit#: [id number] Attend Dr: Priscila Hartman MD Re09/12/23 Status: DEP REF Location: [facility] Disch: SPEC : [id number] ODETTE: 09/12/23 STATUS: COMP REQ : [id number] RECD: 09/12/23-[address]: Priscila Hartman MD COMP: 09/12/23-1621 ENTERED: 09/12/23-[address]: ORDERED: Met Prof Fast, Lipid Panel, Vitamin D 25-OH Test Result Flag Reference Sodium 140 135-145 mmol/L Potassium 4.2 3.3-5.1 mmol/L CL 103 96-108 mmol/L CO2 30 H 22-29 mmol/L Gap 11 L 12-20 BUN 15 9-16 mg/dL Creat 0.83 0.5-1.4 mg/dL EGFR > 60 NOTE: For -[place] individuals, multiply the result by 1.210. Chronic Kidney Disease: Estimated GFR < 60 mL/min/1.73m2 Severe Kidney Disease: Estimated GFR < 15 mL/min/1.73m2 FBS 107 H 60-99 mg/dL A fasting glucose from 100-125 mg/dl is considered impaired (pre-diabetes). CA 9.8 # 8.4-10.2 mg/dL Triglyceride 78 <150 mg/dL Desirable Triglyceride: less than 150 mg/dL Borderline High Triglyceride 150-199 mg/dL High Triglyceride: 200-499 mg/dL Very High Triglyceride: greater than or equal to 5OO mg/dL Cholesterol 185 <200 mg/dL Desirable Cholesterol: less than 200 mg/dL Borderline High Cholesterol: 200-239 mg/dL High Cholesterol: greater than 239 mg/dL LDL Calculated 126 H <100 mg/dL Desirable LDL: less than 100 mg/dL Near Optimal/Above Optimal LDL: 110-129 mg/dL Borderline High LDL: 130-159 mg/dL High LDL: 160-189 mg/dL Very High LDL: greater than or equal to 190 mg/dL HDL 44 >40 mg/dL Desirable HDL: greater than 40 mg/dL Note: This HDL assay may give artificially low results in patients with liver disease. Vit D 25-OH Tot 63.4 >30 ng/mL Health Based Reference Values* < 20 ng/mL Deficient 20-30 ng/mL Insufficient > 30 ng/mL Sufficient Coding Level of Care Code Est Pt Level 4 (48143) Complex EM visit Add On G2211 Diagnoses Type 2 diabetes mellitus without complication, with no history of insulin use E11.9 Factor 5 Leiden mutation, heterozygous D68.51 Essential hypertension I10 Dyslipidemia E78.5 Assessment & Plan Assessment & Plan (1) Type 2 diabetes mellitus without complication, with no history of insulin use: Code(s): E11.9 - Type 2 diabetes mellitus without complications Category: Medical Plan: Last hemoglobin A1c was 6.4%, reinforced importance of following healthy eating habits and getting regular exercise. (2) Factor 5 Leiden mutation, heterozygous: Comment: Seen by [facility], Dr. 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 Continue with current medication. Reinforced importance of following a low sodium diet, getting regular exercise, and lowering stress levels. (4) Dyslipidemia: Code(s): E78.5 - Hyperlipidemia, unspecified Category: Medical Plan: Reviewed recent fasting lipid profile with patient with LDL cholesterol not at goal. Advised to get a repeat fasting lipid panel done Continue rosuvastatin 5 mg every other day , in addition to adherence to low-cholesterol diet and regular exercise, at least 30 minutes 3 to 4 times a week. Advised patient to make healthy food choices, eat more fruits, vegetables, whole grains, wild caught fish and low-fat dairy. Limit amount of meat and fried or fatty food products, as well as processed foods and fast foods. Orders: Orders Hemoglobin A1c Today E11.9 - Type 2 diabetes mellitus without complications
[2023-12-15 13:34] VITALS: BP 116/70; PULSE 78; O2SAT 96; BMI 35.0
== END 2023-12-15 14:38 | disposition home or self-care (01) ==
PROVIDERS: PCP Internal Medicine; Visit Provider Internal Medicine
DX: E11.9 Type 2 diabetes mellitus without complications (principal); D68.51 Activated protein C resistance; I10 Essential (primary) hypertension; E78.5 Hyperlipidemia, unspecified

== ENCOUNTER → 2023-12-15 12:53 | Outpatient (BNVA) | payer OTHER, SELFPAY | PROVIDERS: PCP Internal Medicine; Visit Provider Internal Medicine ==

== ENCOUNTER 2024-02-01 08:03 | Outpatient (REF) | payer OTHER, SELFPAY ==
--- NOTE | ~2024-02-01 | XR_ITS ---
EXAMINATION: XR CHEST CLINICAL INFORMATION: R05.9 - Cough, unspecified COMPARISON: 11/28/2023 TECHNIQUE: 2 views of the chest were obtained. FINDINGS: Cardiac silhouette remains prominent. Low lung volumes. There is no gross pneumothorax. Degenerative changes in the thoracic spine. No significant pleural effusion. Increased moderate streaky and patchy opacities, right greater than left lung base. XR/XR chest 2V IMPRESSION: Increased moderate streaky and patchy opacities, right greater than left lung base. This study was presented today February 01, 2024 for interpretation. Stat results provided at this time as requested by referring provider. Electronically signed by: Vani Muller MD 02/01/2024 11:32 AM KEO
== END 2024-02-01 08:04 | disposition home or self-care (01) ==
LOC: HO.HMGCX 08:03
PROVIDERS: PCP Internal Medicine; Visit Provider Physician Assistant
DX: L23.9 Allergic contact dermatitis, unspecified cause (principal); J06.9 Acute upper respiratory infection, unspecified; J44.9 Chronic obstructive pulmonary disease, unspecified; R05.9 Cough, unspecified
CPT/HCPCS: 71046

== ENCOUNTER 2024-02-01 08:03 | Outpatient (AMB) | payer OTHER, SELFPAY ==
--- NOTE | 2024-02-01 08:04 | MHC.OFFWIV ---
Intake Vital Signs 02/01/24 08:07 Weight 259 lb BP 118/74 Blood Pressure Location Lt brachial Position Sitting Pulse 77 Pulse Source Pulse Oximeter Temp 98.2 F Temp Source Oral Pulse Oximetry (%) 95 Oxygen Delivery Method Room Air Intake Visit Reasons: EP Rash all over, coughing, wheezing Intake Note: Patient here for cough, wheezing and rash al over body. he states he was recently on doxy. Patient Tobacco Use Status: Never used Tobacco Allergies oxycodone Allergy (Verified 02/01/24 08:07) Itching Sulfa (Sulfonamide Antibiotics) Allergy (Verified 02/01/24 08:07) Itching Do you need a note to return to daycare/school/sports/work: No HPI HPI Comments History of Present Illness Details Is a 63-year-old male with a past medical history of COPD with 2 complaints today. He is 1st complaint is that he has had a rash on his body that has come and gone over the last 3 months. He states it is extremely itchy and today, it covers his face, chest, arms, abdomen and legs. He tells me he was on doxycycline a month or 2 ago and he did try a new soap with oatmeal and aloe but he went back to his old soaps and he is not taking the doxycycline quite awhile ago. He tells me he does have eczema and sensitive skin and he uses a betamethasone cream but that does not seem to be helping the itch. He tells me he has also tried Benadryl and that does not seem to help much either. His 2nd complaint is that he has had a cough for months as well. He tells me it is productive and he has some wheezing. He has been taking his regular inhalers and has been using his albuterol inhaler more frequently than typical. He did not test for COVID, he tells me no one at home is sick and he has not tried any treatments to make himself feel better. He denies any shortness of breath, head congestion, sinus pain ear pain or fevers. 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 Cognitive needs: No Hearing needs: No Vision needs: Yes Review of Systems Const All systems reviewed & are unremarkable except as noted in HPI and below Physical Exam Vital Signs: Last Vital Signs Temp 98.2 F 02/01/24 08:07 Pulse 77 02/01/24 08:07 BP 118/74 02/01/24 08:07 Pulse Ox 95 02/01/24 08:07 Oxygen Delivery Method Room Air 02/01/24 08:07 Const General: cooperative, healthy appearing, comfortable and no acute distress Orientation/consciousness: patient oriented x3 Limitations: no limitations HEENT Head: Yes normal to inspection Ears: hearing grossly normal bilaterally, external ears normal and TM's normal bilaterally General nose exam: Normal external nose present, Normal nares present and No nasal discharge present Face and sinus: Yes normal facial exam and Yes sinuses nontender Mouth: Normal oral and palatal mucosa present and moist mucous membranes Throat: Yes tonsils normal, Yes uvula midline and Yes posterior oropharynx abnormal (Erythema) Eyes General: appearance normal, both eyes and all related structures Neck Neck: Yes normal visual inspection Resp Effort & Inspection: normal respiratory effort, able to speak in complete sentences, no respiratory distress, not tachypneic, no tripod positioning and no use of accessory muscles Auscultation: clear to auscultation bilaterally Cardio Rate: regular rate Rhythm: regular rhythm Heart sounds: normal S1 and S2 Skin General skin exam: no rashes or lesions noted Neuro General: patient oriented x3 Extrem General: Yes normal to inspection and Yes no clubbing, cyanosis or edema Assessment & Plan Assessment & Plan (1) Upper respiratory tract infection: Comment: likely viral Code(s): J06.9 - Acute upper respiratory infection, unspecified Qualifiers: URI type: unspecified URI Qualified Code(s): J06.9 - Acute upper respiratory infection, unspecified Plan: Oxygen saturation is 95% on room air, other vital signs are stable, vesicular lung sounds with expiratory wheezes, we will get a chest x-ray, I am going to put him on a 10 day prednisone taper which will cover the wheezing and the rash. (2) Allergic dermatitis: Code(s): L23.9 - Allergic contact dermatitis, unspecified cause Plan: Ten day taper of prednisone with hydroxyzine. Plan See above Orders: Orders XR chest 2V Today R05.9 - Cough, unspecified Medications: New hydroxyzine HCl 25 mg PO BEDTIME 14 tabs 0RF prednisone On days 1-3, take 2 tablets with breakfast. On days 4-6 take 1 tablet with breakfast, on days 7-10 take 0.5 tablet with breakfast 20 mg PO DAILY 11 tabs 0RF Coding Level of Care Code Est Pt Level 4 (06550) Diagnoses Upper respiratory tract infection, unspecified type J06.9 URI type: unspecified URI Allergic dermatitis L23.9
[2024-02-01 08:07] VITALS: BP 118/74; PULSE 77; TEMP 36.8; O2SAT 95
--- OUTSIDE RECORDS SUMMARY | 2024-02-05 12:57 | XMS_ITS ---
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 Generated for Printi ng/Fakatiag/eTransmitting on:?02/05/2024 12:57 PM EST
--- OUTSIDE RECORDS SUMMARY | 2024-02-05 12:57 | XMS_ITS ---
Author Organization [facility] Address [address] [place] [address] Care Team Providers Care Motorcycle Police Officer Name Role Phone Devan THOMAS, Priscila Hawkins Primary Care Provider Un available Garry Hassan Unavailable [phone] Julia Cook Unavailable [phone] REASON FOR VISIT No Paperwork Encounters Encounter Location Date Provider Diagnosis [facility] [address] [place] [address] 06/26/2023 Julia Cook Plan Of Treatment No Information Progress Notes * Derick FIELDS WDOB:1960 (63 yo M)Acc No.[id number]:06/26/2023 Progress Notes Patient:?Derick FIELDS Provider:?Julia Cook DPM :1960???Age:63 Y???Sex:Male Osmin e:06/26/2023 Address:[address], [address] , [place], [place] Pcp:Mikki Philip Subjective: * Chief Complaints: * ???1. No Paperwork. * Medical History:? Objective: * Vitals:? Assessment: Plan: * Treatment: * Images: * The named appointment provid er may or may not be the originator of this progress note, and it is not deemed complete until electronically signed by the appointment provider. Sign off status: Pending * Provider:?Julia Cook DPM Date:?02/2024 Generated for Rachel aguiar/Radha/Sonya on:?02/05/2024 12:57 PM EST
--- OUTSIDE RECORDS SUMMARY | 2024-02-05 12:57 | XMS_ITS | Patient Health Record ---
Author Organization [facility] Address [address] [place] [address] Care Team Providers Care French Teacher Name Role Phone Devan THOMAS, Priscila Hawkins Primary Care Provider Un available Garry Hassan Unavailable [phone] DomJulia viera Unavailable [phone] Allergies Allergen (clinical drug ingredient) Drug/Non Drug Allergy documented on EMR Reaction Allergy Type Onset Date Status sulfamethoxazole / trimethoprim Bactrim Unknown Drug Allergy Active Sulfamethoxazole Unknown Drug Allergy Active oxycodone Oxycodone Unknown Drug Allergy Active Reason For Referral No Information Medications Medication SIG (Take, Route, Frequency, Duration) Notes Start Date End Date Status Betamethasone Dipropionate 0.05 % 1 application Externally Once a day Unknown Betamethasone Active eliquis Active Lisinopril 0.5 1 tablet Orally Once a day Active hydroCHLOROthiazide Active Ciclopirox Olamine 0.77 % 1 application Externally Twice a day for 30 days Active Social History Tobacco Use: Social History Observation Description Date Details (start date - stop date) Never Smoker NA - NA Tobacco Use/Smoking Question Answer Notes Are you a: nonsmoker Additional Findings: Tobacco Non-User Current no n-smoker Alcohol Screen Question Answer Notes Did you have a drink containing alcohol in the p ast year? Yes Points 0 Interpretation Negative Tobacco use other than smoking: Question Answer Notes Are you an other tobacco user? No Problems Problem Type SNOMED Code ICD Code Onset Dates Problem Status W/U Status Risk Notes Problem Plantar wart (44022173) Plantar wart (B07.0) Active confirmed Problem Acquired hammer toe of left foot (0073566302888 103) Other hammer toe(s) (acquired), left foot (M20.42) Active confirmed Vital Signs Height 6 ft in 08/25/2023 Weight 260 lbs 08/25/2023 BMI 35.26 kg/m2 08/25/2023 Encounters Encounter Location Date Provider Diagnosis [facility] [address] 08/25/2023 Julia Cook Tinea pedis of both feet B35.3 ; Plantar wart B07.0 ; Tinea unguium B35.1 ; Pain in right toe(s) M79.674 ; Pain in left toe(s) M79.675 and Left foot pain M79.672 [facility] [address] [address] 07/21/2023 Garry Hassan Assessments Encounter Date Diagnosis (ICD Code) Assessment Notes Treatment Notes Treatment Clinical Notes 08/25/2023 Plantar wart (ICD-10 - B07.0) 08/25/2023 Tinea pedis of both feet (ICD-10 - B35.3) 08/25/2023 Tinea unguium (ICD-10 - B35.1) 08/25/2023 Pain in right toe(s) (ICD-10 - M79.674) 08/25/2023 Pain in left toe(s) (ICD-10 - M79.675) 08/25/2023 Left foot pain (ICD-10 - M79.672) Plan Of Treatment Pending Test Test Name Order Date X ray : Foot, left 3V 05/25/2019 Insurance Providers Payer Name Payer Address Payer Phone Subscriber Number Group Number Insured Name Patient Relationship to Insured Coverage Start Date Coverage End Date [facility] [address] [facility] [id number] Derick Fields Self - patient is the insured Medical (General) History Medical History History ICD Code High blood pressure Measles blood clots Surgical History Surgery Date(Month/Year) Hospitalization History Reason Date(Month/Year) [facility] lung [facility] 2022 [facility]- Respiratory infection 08/01
--- OUTSIDE RECORDS SUMMARY | 2024-02-05 12:57 | XMS_ITS ---
Author Organization [facility] Address [address] [place] [address] Care Team Providers Care Farm Crops Teacher Name Role Phone Devan THOMAS, Priscila Hawkins Primary Care Provider Un available Garry Hassan Unavailable [phone] Julia Cook Unavailable [phone] Allergies Allergen (clinical drug ingredient) Drug/Non Drug Allergy documented on EMR Reaction Allergy Type Onset Date Status sulfamethoxazole / trimethoprim Bactrim Unknown Drug Allergy Active Sulfamethoxazole Unknown Drug Allergy Active oxycodone Oxycodone Unknown Drug Allergy Active REASON FOR VISIT Pcp-07/07, Painful nail(s) aggrevated by shoes causing difficulty standing/walking, Skin Problem, Wart(s) Medications Medication SIG (Take, Route, Frequency, Duration) [...] W/U Status Risk Notes Problem Plantar wart (80595437) Plantar wart (B07.0) Active confirmed Vital Signs Height 6 ft in 08/25/2023 Weight 260 lbs 08/25/2023 BMI 35.26 kg/m2 08/25/2023 Encounters Encounter Location Date Provider Diagnosis [facility] [address] [address] 08/25/2023 Julia Domaylin Tinea pedis of both feet B35.3 ; Plantar wart B07.0 ; Tinea unguium B35.1 ; Pain in right toe(s) M79.674 ; Pain in left toe(s) M79.675 and Left foot pain M79.672 Assessments Encounter Date Diagnosis (ICD Code) Assessment Notes Treatment Notes Treatment Clinical Notes 08/25/2023 Tinea pedis of both feet (ICD-10 - B35.3) 08/25/2023 Plantar wart (ICD-10 - B07.0) 08/25/2023 Tinea unguium (ICD-10 - B35.1) 08/25/2023 Pain in right toe(s) (ICD-10 - M79.674) 08/25/2023 Pain in left toe(s) (ICD-10 - M79.675) 08/25/2023 Left foot pain (ICD-10 - M79.672) Plan Of Treatment Medication Medication Name Sig Start Date Stop [...] Pt defers any other forms of tx (25694) Debride Nail 6-10 Nail debridement Nail debridem ent performed extensively to reduce/remove overall nail length, girth, thickness, subungual debris, and necrotic tissue, by manual and electrical means through the use of a nail nipper and/or dremel, to more viable healthy nail plate or bed tissue 1-5. Silver nitrate used for any petechial bleeding as necessary. Patient chooses, no pharmaceutical tx (72222) Progress Notes * Derick FIELDS WDOB:1960 (63 yo M)Acc No.[id number]:08/25/2023 Progress Notes Patient:?Derick Fields Provider:?Julia Cook DPM :1960???Age:63 Y???Sex:Male Osmin e:08/25/2023 Address: [address], [address] , [facility] Pcp:Mikki Philip Subjective: * Chief Complaints: * ???Pcp-07/07Painful nail(s) aggrevated by shoes causing difficulty standing/walkingSkin ProblemWart(s) * HPI: ???Painful Nails:?Pt States Last PCP Visit:?Date:?06/24/2023 ???Skin problems:?Pt States PCP Visit: ?DATE?06/24/2023 ?Nature:?scaling , redness.?Location:?B/L .?Duration:?several days.?Course:?worse.? * ROS:?General/Constitutional:?Nausea?denies, denies, denies.?Vomiting?denies, denies, denies.?Hunger Thirst?denies, denies, denies.?Loss appetite?denies, denies, denies.?Chills?denies, denies, denies.?Fatigue?denies, denies, denies.?Fever?denies, denies, denies.?Night Sweats?denies, denies, denies.?Unexplained weight loss?denies, denies, denies.?Unexplained weight gain?denies, denies.?HEENTM:?Dentures?denies.?Dizziness?denies.?Glasses/contacts?denies.?Retinopathy?de nies.?Blurred/double vision?denies.?TMJ?denies.?Discharge/drainage?denies.?Implants?denies.?Sore throat?denies.?Dental implants?denies.?Hard of hearing ?denies.?Difficulty chewing/swallowing/speaking?denies.?Nose bleeds?denies.?Sore mouth?denies.?Respiratory:?On Oxygen?denies.?Pneumonia/pleurisy?denies.?Bronchitis?denies.?Emphysema?denies.?C oughing?denies.?Cough blood?denies.?Shortness of breath?denies.?Wheezing?denies.?Cardiovascular:?Pacemaker?denies.?MVP?denies.?WPW?denies.?CHF?denies.?Heart attack?denies.?Septal defect?denies.?Rapid beat?denies.?Chest pain ?denies.?Atrial Fib.?denies.?Murmur/Palpitations?denies.?Gastrointestinal:?Hemorrhoids?denies.?Stomach/Abdominal pain?denies.?Dark blood stool?denies.?Irritable bowel ?denies.?Constipation?denies.?Diarrhea?denies.?Hematology:?Swelling?denies.?Clots?denies.?Varicose Veins?denies.?Bruising?denies.?Bleeding problem?denies.?Genitourinary:?Blood urine?denies.?Frequent/Painfu/urination/bladder control?denies.?Kidney stones?denies.?Infection (UTI)?denies.?Nephropathy?denies.?sex trans dis (STD)?denies.?Prostate?denies.?Musculoskeletal:?Hammertoes?denies.?Bunions?denies.?Back Pain?denies.?Muscle Cramps/ Resting?admits, denies.?Muscle cramps / walking?admits, denies.?Generalized aches and pains?denies.?Weakness?denies.?Integ.:?Man?denies.?Scars?denies.?Corns/calluses?denies.?Ingrown nails?denies.?Painful nails?denies.?Open Sores?denies.?Rashes?denies.?Neurologic:?Difficulty sleeping?denies.?Brain disorder?denies.?Numbness?denies.?Balance trouble?denies.?Confusion?denies.?Fainting/blackouts?denies.?Tingling?denies.?Tr emors?denies.? * Medical History:? * Surgical History:?Oc crook Surgical History * Hospitalization/Major Diagno stic Procedure:?[facility] * Family History:?Mother: dece ased, Foot Problems, diagnosed with Unspecified essential hypertension, Other specified conditions influencing health status.?Father: , poor circulation, diagnosed with Unspecified essential hypertension, Unspecified heart disease.? * Social History:?Tobacco Use:?Tobacco Use/Smoking?Are you a:?nonsmoker ?Additional Findings: Tobacco Non-User?Current non-smoker ?Tobacco use other than smoking?Are you an other tobacco user??No ???Drugs/Alcohol:?Drugs?Have you used drugs other than those for medical reasons in the past 12 months??No ?Alcohol Screen?Did you have a drink containing alcohol in the past year??Yes ?Points?0 ?Interpretation?Negative ???Miscellaneous:?Caffeine: yes, 1-2 cups per day. ?Children: yes. ?no Exercise. ?Marital status: single. 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 * Medications:?TakingBetametha sone eliquis Lisinopril 0.5 mg 1 tablet Orally Once a dayhydroCHLOROthiazide Taking Betamethasone Taking eliquis Taking Lisinopril 0.5 mg 1 tablet Orally Once a dayTaking hydroCHLOROthiazide UnknownBetamethasone Dipropionate 0.05 % Ointment 1 application Externally Once a dayMedication List reviewed and reconciled with the patientUnknown Betamethasone Dipropionate 0.05 % Ointment 1 application Externally Once a dayMedication List reviewed and reconciled with the patient * Allergies:?BactrimOxycodoneS ulfamethoxazole: Allergyyes[Allergies Verified] Objective: * Vitals:?Ht: 6 ft, Wt:260, BM I:35.26, Shoe size: 9, Ht-cm: 182.88 cm, Wt-k.93 kg. * Examination: ???General Examination: ?GENERAL APPEARANCE:?Reveals a pleasant, alert, well-nourished, well- developed, well hydrated individual, who demonstrates proper attention to hygiene/body habitus, and is in no acute distress, Pt serves as own?historian for office visit today.?ORIENTED:?person, place, and time.?Neurological: ?SENSORY:?Neurological exam reveals intact sensorium, pain sensation normal, vibration sensation intact, pinprick sensation is normal in the lower extremities, Pt denies, anesthesia, burning, paresthesia, tingling, B/L.?DEEP TENDON REFLEXES:?Achilles, 2/4, B/L.?Vascular: ?DP PULSES:?3/4, B/L.?PT PULSES:?3/4, B/L.?CAPILLARY FILL TIME:?immediate, all digits, B/L.?SKIN TEMPERTURE GRADIENT OF THE LOWER EXTERMITIES:?warm to cool, proximal to distal, B/L.?HAIR GROWTH/TEXTURE/ELASTICITY/TURGOR:?normal, B/L.?PIGMENTATION:?normal, B/L.?EDEMA:?absent, B/L.?Dermatologic: ?SKIN FINDINGS:? Skin shows sign(s) of, erythema, scaling, in a moccasin fashion, no fissure(s) present, B/L.?VERRUCA:? Reveals a Single , multi-loculated , mosaic-patterned, round, raised, flat-topped, petechial bleeding papule(s), with cauliflower appearance and interruption of skin lines, pain to lateral compression, and size estimated at 2mm diameter plantar Forefoot LEFT.?Orthopedic: ?MUSCLE STRENGTH:?5/5 all groups in a symmetrical fashion , B/L.?FOOT MORPHOLOGY:? B/L Pes Planus structure.?DIGITAL DEFORMITIES:? Digital contracture, PIPJ, 2-5 B/L, incompl- reducible with WB, or to push-up test, no over, nor underlapping.?Nails: ?NAILS are:?Elongated, overgrown, dystrophic, lytic, greater than 3mm thick, discolored and friable with crumbly malodorous subungual debris, with pain on palpation 1-5 B/L.? Assessment: * Assessment: 1.?Plantar wart - B07.0?2.?T inea pedis of both feet - B35.3 (Primary), Acute problem, Uncomplicated (3),Rx drug management (4)?3.?Tinea unguium - B35.1?4.?Pain in right toe(s) - M79.674?5.?Pain in left toe(s) - M79.675?6.?Left foot pain - M79.672? Plan: * Treatment: * Procedures:?Debride Nail 6-10:?Nail debridement?Nail debridement performed extensively to reduce/remove overall nail length, girth, thickness, subungual debris, and necrotic tissue, by manual and electrical means through the use of a nail nipper and/or dremel, to more viable healthy nail plate or bed tissue 1-5. Silver nitrate used for any petechial bleeding as necessary. Patient chooses, no pharmaceutical tx (21427).?Wart Treatment:?Procedure?Verrucae were debrided to pin-point bleeding margins with sterile 15 surgical blade, silver nitrate chemocautery applied, recomm. immune-boosting meds such as zinc, recomm. follow up with topical chemosurgical agents, Pt defers any other forms of tx (60367).? * Procedure Codes:?35356 DEBRI DE NAIL, 6 OR MORE, Modifiers: XS 71737 Wart Destruction, 1-14, Modifiers: XS * Preventive Medicine:? ??Counseling:?Discussion:?-03: Office or other outpatient visit for the evaluation and management of a new patient, which required a medically appropriate history and/or examination and LOW level of DECISION MAKING for: 1 STABLE ACUTE UNCOMPLICATED PROBLEM, 2 OR MORE MINOR PROBLEMS, OR 1 STABLE CHRONIC PROBLEM, THAT POSE(S) A LOW RISK FOR MORBIDITY/MORTALITY. The visit on the day of the encounter encompassed interpreting the data and educating the patient as to the nature of their condition, treatment options available according to their individual PMH, meds, allergies, and overall health/living conditions, as well as any potential risks or complications that may occur from a failure to adhere to, and participate in, the recommended course of therapy. The discussion included a complete verbal, and/or written explanation of the examination results, any x-rays taken, the proposed diagnosis, and outline of the treatment plan. A schedule for future care needs was also explained. The patient verbalized an understanding of the instructions at this time and agreed to be an active participant in their treatment. If the patient should think of any questions or concerns after the visit, I have encouraged the patient to call the office.?Tinea Pedis:?The patient was counseled on the diagnosis, potential etiologies, and treatment options for their skin condition. We discussed the risks and benefits of each option from performing no treatment, to utilizing OTC topical skin creams, prescription topical creams, customized compounded topical medications, and, if necessary, to utilize oral antifungal therapy. We discussed the advantages and disadvantages of each possible treatment and importance for adherence to all the recommended therapies for optimum success and avoid potential complications such as open sore/infection/possible hospitalization. We discussed the potential effectiveness of each topical preparation as well as each ones possible side effects and/or patient medication interactions if oral therapy is selected. Patient questions re: the advantages and disadvantages of each treatment choice, medication use/dosage, successful outcomes, and application consistency were reviewed and the patient verbalized that all answers were clearly understood. The patient was told they can help alleviate symptoms by utilizing moisture absorbant innersoles with activated charcoal and baking soda, applying antifungal sprays daily, aerating toe web spaces at night by putting cotton or lambs wool between the toes, alternating shoe gear daily if possible so they can dry out, changing socks at least once during the day, wearing well-ventilated shoes or sandals. The patient has decided to apply antifungal skin creams to their feet as directed. Rx was sent to their pharmacy at the time of visit.? * Follow Up:?prn * Images: * Sign off status: Completed true * Provider:?Julia Cook DPM Date:?01/2024 Generated for Rachel aguiar/Radha/Sonya on:?02/05/2024 12:56 PM EST History and Physical Notes * HPI (History of Present Illness) Category Sub-Category Detail Notes Painful Nails Pt States Last PCP Visit: Date:: 024 Skin problems Nature: scaling , rednes s Location: B/L Duration: several days Course: worse Pt States PCP Visit: DATE: 06/24/2023 Examination Category Sub-Category Detail Notes Neurological SENSORY: [...]
--- OUTSIDE RECORDS SUMMARY | 2024-02-05 12:58 | XMS_ITS | Patient Health Record ---
Author Organization [facility] Address [address] [place] [address] Care Team Providers Care Booking Police Officer Name Role Phone Devan THOMAS, Priscila Primary Care Provider Thom Gaines Unavailable [phone] REASON FOR REFERRAL No Information SOCIAL HISTORY Sex Assigned At : Social History Observation Description Sex Assigned At Unknown PLAN OF TREATMENT No Information Insurance Providers Payer Name Payer Address Payer Phone Subscriber Number Group Number Insured Name Patient Relationship to Insured Coverage Start Date Coverage End Date [facility] [address] [address] [place], [place] [id number] RAMIRO JAMES Self - patient is the insured
== END 2024-02-01 08:37 | disposition home or self-care (01) ==
PROVIDERS: PCP Internal Medicine; Visit Provider Physician Assistant
DX: J06.9 Acute upper respiratory infection, unspecified (principal); L23.9 Allergic contact dermatitis, unspecified cause

== ENCOUNTER 2024-03-17 15:51 | Outpatient (AMB) | payer OTHER, SELFPAY ==
[2024-03-17 16:24] VITALS: BP 130/80; PULSE 81; BMI 35.8
--- NOTE | 2024-03-17 16:24 | MHC.PC.OV ---
Vital Signs 03/17/24 16:24 Height 6 ft Weight 264 lb BMI 35.8 BP 130/80 Blood Pressure Location Rt brachial Position Sitting Pulse 81 Pulse Source Pulse Oximeter Intake Visit Reasons: 3m follow up Intake Note: Pt is here today for his 3mo. f/u Allergies oxycodone Allergy (Verified 03/17/24 17:21) Itching Sulfa (Sulfonamide Antibiotics) Allergy (Verified 03/17/24 17:21) Itching Medication List - Last Reconciled 03/17/24 by Priscila Hartman MD albuterol sulfate 90 mcg/actuation 2 puffs inhalation Q6H PRN albuterol sulfate 90 mcg/actuation (Ventolin HFA) 1 inh inhalation QID PRN apixaban (Eliquis) 5 mg PO BID betamethasone dipropionate 0.05% 1 appl topical DAILY PRN 10 days cholecalciferol (vitamin D3) 1,250 mcg PO QWEEK 3 months hydrochlorothiazide 12.5 mg PO QAM hydrochlorothiazide 12.5 mg PO DAILY hydroxyzine HCl 25 mg PO BEDTIME lisinopril 5 mg PO DAILY rosuvastatin 5 mg PO Q2D 90 days sildenafil 100 mg PO DAILY PRN Symbicort 160-4.5 mcg/actuation (budesonide-formoterol) 2 puffs inhalation Q12H NS Tobacco use date assessed: 03/17/24 Fall risk assessment: 1 Fall in past year Last assessed Fall Risk: 03/17/24 Dental Screening Dental Screen Date: 03/17/24 Did you have a dental visit in the last 12 months?: No Did you have a dental problem in the last 6 months where you did not have access to dental care?: No Was dental information given to patient?: Patient has dentist HPI 3m follow up HPI Details 63-year-old male with hypertension, diabetes mellitus, hyperlipidemia and factor 5 laden mutation carrier, here today for follow-up. He has been taking his medicines as directed but has not been able to adhere to his diet or get any exercise at all due to family problems lately please past few months. He also has been breaking out in hives after taking a hot shower. [facility] Medical History (Updated 03/17/24 @ 17:22 by Priscila Hartman MD) Urticaria due to heat COPD with acute exacerbation Type 2 diabetes mellitus without complication, with no history of insulin use History of pulmonary embolus (PE) History of DVT (deep vein thrombosis) Pulmonary nodule 1 cm or greater in diameter Current use of buttermaker helper anticoagulation Factor 5 Leiden mutation, heterozygous Erectile dysfunction Vitamin D deficiency Colon cancer screening Obesity (BMI 30-39.9) Varicose veins of both lower extremities Eczema Dyslipidemia Essential hypertension Surgical History Hx of colonoscopy S/P anal fissurectomy Family History Father Diabetes mellitus Coronary artery disease Mother Dementia Sister No problems noted. 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 1. Little interest or pleasure in doing things: not at all 2. Feeling down, depressed, or hopeless: not at all 3. Trouble falling or staying asleep, or sleeping too much: not at all 4. Feeling tired or having little energy: not at all 5. Poor appetite or overeating: not at all 6. Feeling bad about yourself - or that you are a failure or have let yourself or your family down: not at all 7. Trouble concentrating on things, such as reading the newspaper or watching television: not at all 8. Moving or speaking so slowly that other people could have noticed. Or the opposite - being so fidgety or restless that you have been moving around a lot more than usual: not at all 9. Thoughts that you would be better off or of hurting yourself in some way: not at all Total score: 0 Depression Screening Interpretation: Negative Depression Screening Done: Yes 17299 - PHQ-9 Billing: Yes Source: Developed by Drs. Thom Foreman, Melody Ardon, Aamir Blevins and colleagues, with an educational aruna from [employer]. Thrive Questionnaire Date Thrive assessed: 03/17/24 I am a: Patient What is your living situation today?: I have a steady place to live Within the past 12 months, did the food you bought not last and you didn't have the money to get more?: I choose not to answer this question Within the past 12 months, did you worry whether your food would run out before you got money to buy more?: I choose not to answer this question Do you have trouble paying for medicines?: I choose not to answer this question Do you have trouble getting transportation to medical appointments?: I choose not to answer this question Do you have trouble paying your heating and electricity bill?: I choose not to answer this question Do you have trouble taking care of your child, family member or friend?: I choose not to answer this question Do you have trouble with day-to-day activities such as bathing, preparing meals, shopping, managing finances, etc.?: I choose not to answer this question Are you currently unemployed and looking for a job?: I choose not to answer this question Are you interested in more education?: I choose not to answer this question Please select the resources that you would like help with: Paying for medicine Currently or been in a relationship where the following occur: No concerns reported THRIVE Score: 0 AUDIT C Alcohol Use Questionnaire (AUDIT-C) 1. How often do you have a drink containing alcohol?: Monthly or less 2. How many drinks containing alcohol do you have on a typical day when you are drinking?: 1 or 2 3. How often do you have six or more drinks on one occasion?: Never Total Score: 1 JESSICA-7 AMB Questionnaire JESSICA-7 Date JESSICA - 7 assessed: 03/17/24 Feeling nervous, anxious, or on edge: 0 = Not at all Not being able to stop or control worryin = Not at all Worrying too much about different things: 0 = Not at all Trouble relaxin = Not at all Being so restless that it is hard to sit still: 0 = Not at all Becoming easily annoyed or irritable: 0 = Not at all Feeling afraid as if something awful might happen: 0 = Not at all Total JESSICA-7 score (0-4 normal; 5-9 mild; 10-14 moderate; 15-21 severe): 0 Source: Developed by Drs. Thom Foreman, Melody Ardon, Aamir Blevins and colleagues, with an educational aruna from [employer]. JESSICA-7 Assessment Billing JESSICA-7 Assessment Tool: JESSICA-7 Assessment 76214 Review of Systems Const Denies body aches, Denies fatigue, Denies fever(s), Denies headache(s) and Denies weakness Eyes Reports no additional complaints ENT Denies dizziness, Denies headache(s), Denies sinus pain and Denies sore throat Card Denies chest pain, Denies lightheadedness, Denies palpitations and Denies dyspnea Resp Denies chest congestion, Denies excessive phlegm production, Denies pain on inspiration and Denies dyspnea GI Denies abdominal pain, Denies melena, Denies hematochezia, Denies change in bowel habits and Denies heartburn Denies dysuria, Denies urinary frequency and Denies urinary urgency Musc Reports no additional complaints Skin/Breast Denies rash Neuro Denies dizziness, Denies headache(s) and Denies weakness Psych Reports no additional complaints Endo Denies fatigue, Denies polydipsia, Denies polyuria and Denies palpitations Ceasar/Lymph Denies easy bleeding and Denies easy bruising Aller/Immun Denies seasonal rhinorrhea Physical exam (Primary Care) Vital Signs: Last Vital Signs Pulse 81 03/17/24 16:24 BP 130/80 03/17/24 16:24 BMI result Body Mass Index 35.8 Tobacco/Smoking Status: Tobacco use Status Tobacco use date assessed 03/17/24 03/17/24 16:32 Patient Tobacco Use Status Never used Tobacco 03/17/24 16:32 e-Cigarette/Vaping Use Never Used 03/17/24 16:32 PHQ-9: PHQ-9 Score PHQ-9: Total score 0 03/20/24 18:16 Depression Screening Interpretation: Negative Thrive Assessment: Date of Thrive Assessment Date Thrive assessed 03/17/24 03/17/24 16:32 Currently or been in a relationship where the following occur: No concerns reported Const General: comfortable and no acute distress Nutritional Appearance: obese Orientation/consciousness: patient oriented x3 HENMT Face and sinus: Yes face symmetric Mouth: Normal oral and palatal mucosa present and moist mucous membranes Neck Neck: Yes full ROM, Yes no lymphadenopathy and Yes supple Chest Chest palpation & inspection: normal inspection of the chest and normal palpation of entire chest wall Resp Effort & Inspection: normal respiratory effort and able to speak in complete sentences Cardio Rate: regular rate Rhythm: regular rhythm Heart sounds: S1 normal heart sound present and S2 normal heart sound present Peripheral pulses: Peripheral pulses 2+ throughout GI Inspection: Yes obesity Palpation (GI): Soft to palpation, nontender, no guarding and no masses Auscultation: normal bowel sounds General: Yes no CVA tenderness Male General Exam: Yes normal external exam Back/Spine/Pelvis Back: no CVA tenderness and No back tenderness Cervical Spine: cervical ROM normal Thoracic/Lumbar Spine: thoracic and lumbar spine normal to inspection and thoraco-lumbar ROM normal Skin General skin exam: no rashes or lesions noted Neuro General: patient oriented x3, gait normal, moves all extremities, Normal light touch and pain sensation and no focal motor deficits Extrem Other: Varicose veins noted in both lower extremities, right more than the left read ankle swelling noted bilaterally again right more than the left General: No no joint enlargement, Yes no calf tenderness and Yes normal gait Coding Level of Care Code Est Pt Level 4 (55673) Complex EM visit Add On G2211 Diagnoses Type 2 diabetes mellitus without complication, with no history of insulin use E11.9 Current use of shelter anticoagulation Z79.01 Factor 5 Leiden mutation, heterozygous D68.51 Erectile dysfunction N52.9 Essential hypertension I10 Dyslipidemia E78.5 Urticaria due to heat L50.2 Additional Codes PHQ-9 - 98578 - PHQ-9 Billing: Yes ([id number]) JESSICA-7 Assessment Billing - JESSICA-7 Assessment Tool: JESSICA-7 Assessment 27562 ([id number]) Assessment & Plan Assessment & Plan (1) Type 2 diabetes mellitus without complication, with no history of insulin use: Code(s): E11.9 - Type 2 diabetes mellitus without complications Category: Medical Plan: Currently trying to controlled diabetes through diet , reminded patient to get his fasting labs done to check this control. 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 Barnes to continue with full anticoagulation of apixaban 5 mg twice a day until summer and then may do prophylactic anticoagulation with apixaban at 2.5 mg twice a day. Anticoagulation however is to be continued indefinitely (4) Erectile dysfunction: Code(s): N52.9 - Male erectile dysfunction, unspecified Category: Medical Plan: Taking Viagra 100 mg per tablet once a day as needed (5) Essential hypertension: Code(s): I10 - Essential (primary) hypertension Category: Medical Plan: Blood pressure at goal of less than 130/80. Continue with current medication. Reinforced importance of following a low sodium diet, getting regular exercise, and lowering stress levels. (6) Dyslipidemia: Code(s): E78.5 - Hyperlipidemia, unspecified Category: Medical Plan: Currently on rosuvastatin 5 mg taken 1 tablet every other day. Reminded to get his fasting lipid levels checked (7) Urticaria due to heat: Code(s): L50.2 - Urticaria due to cold and heat Category: Medical Plan: Takes hydroxyzine 25 mg 1 tablet at night as needed Medications: Changed From hydroxyzine HCl 25 mg PO BEDTIME 14 tabs 0RF To hydroxyzine HCl 25 mg PO BEDTIME PRN 30 tabs 0RF itching Refilled sildenafil administer 30 minutes to 4 hours before activity 100 mg PO DAILY PRN 10 tabs 2RF sexual activity
--- OUTSIDE RECORDS SUMMARY | 2024-03-17 17:15 | XMS_ITS ---
Author Organization [facility] Address [address] [place] [address] Care Team Providers Care Outbound Telemarketer Name Role Phone Devan THOMAS, Priscila Hawkins Primary Care Provider Un available Garry Hassan Unavailable [phone] Julia Cook Unavailable [phone] REASON FOR VISIT No Paperwork Encounters Encounter Location Date Provider Diagnosis [facility] [address] [place] [address] 06/26/2023 Julia Cook Plan Of Treatment No Information Progress Notes * Derick FIELDS WDOB:1960 (63 yo M)Acc No.[id number]:06/26/2023 Progress Notes Patient:?Derick FIELDS Provider:?Julia Cook DPM :1960???Age:63 Y???Sex:Male Osmin e:06/26/2023 Address:[address], [address] , [place], [place] Pcp:Mikki Philip Subjective: * Chief Complaints: * [...] Cook DPM Date:?02/2024 Generated for Rachel aguiar/Radha/Sonya on:?03/17/2024 05:15 PM EST
--- OUTSIDE RECORDS SUMMARY | 2024-03-17 17:15 | XMS_ITS ---
Author Organization [facility] Address [address] [place] [address] Care Team Providers Care Precision Grinder External Name Role Phone Devan THOMAS, Priscila Hawkins Primary Care Provider Un available Garry Hassan Unavailable [phone] Julia Cook Unavailable [phone] Allergies Allergen (clinical drug ingredient) Drug/Non Drug [...] W/U Status Risk Notes Problem Plantar wart (41075380) Plantar wart (B07.0) Active confirmed Vital Signs Height 6 ft in 08/25/2023 Weight 260 lbs 08/25/2023 BMI 35.26 kg/m2 08/25/2023 Encounters Encounter Location Date Provider Diagnosis [facility] [address] [address] 08/25/2023 Julia Joyce Tinea pedis of both feet B35.3 ; Plantar wart B07.0 ; Tinea unguium B35.1 ; Pain in right toe(s) M79.674 ; Pain in left toe(s) M79.675 and Left foot pain M79.672 Assessments Encounter Date Diagnosis (ICD Code) Assessment Notes Treatment Notes Treatment Clinical Notes Section Notes 08/25/2023 Tinea pedis of both feet [...] Pt defers any other forms of tx (62732) Debride Nail 6-10 Nail debridement Nail debridem ent performed extensively to reduce/remove overall nail length, girth, thickness, subungual debris, and necrotic tissue, by manual and electrical means through the use of a nail nipper and/or dremel, to more viable healthy nail plate or bed tissue 1-5. Silver nitrate used for any petechial bleeding as necessary. Patient chooses, no pharmaceutical tx (65091) Progress Notes * Derick FIELDS WDOB:1960 (63 yo M)Acc No.[id number]:08/25/2023 Progress Notes Patient:?Derick Fields Provider:?Julia Cook DPM :1960???Age:63 Y???Sex:Male Osmin e:08/25/2023 Address: [address], [address] , [facility] Pcp:Mikki Philip Subjective: * Chief Complaints: * [...] ?no Exercise. ?Marital status: single. 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 * Medications:?TakingBetametha sone eliquis Lisinopril 0.5 mg [...] as necessary. Patient chooses, no pharmaceutical tx (31312).?Wart Treatment:?Procedure?Verrucae were debrided to pin-point bleeding margins with sterile 15 surgical blade, silver nitrate chemocautery applied, recomm. immune-boosting meds such as zinc, recomm. follow up with topical chemosurgical agents, Pt defers any other forms of tx (20889).? * Procedure Codes:?13554 DEBRI DE NAIL, 6 OR MORE, Modifiers: XS 92094 Wart Destruction, 1-14, Modifiers: XS * Preventive [...] Cook DPM Date:?01/2024 Generated for Rachel aguiar/Radha/Sonya on:?03/17/2024 05:14 PM EST History and Physical Notes * HPI (History of Present Illness) Category Sub-Category Detail Notes Category Not es Painful Nails Pt States Last PCP Visit: Date:: 06/24/2023 Skin problems Nature: scaling , redness Location: B/L Duration: several days Course: worse Pt States PCP Visit: DATE: 06/24/2023 Examination Category Sub-Category Detail Notes Category Not es Neurological SENSORY: Neurological exa m reveals intact [...] person, place, and t regi Vascular DP PULSES (B): 3/4, B/L PT PULSES (B): 3/4, B/L CAPILLARY FILL TIME: immediate, all digi ts, B/L TEMPERTURE GRADIENT (C): warm to cool, p roximal to distal, B/L TROPHIC CONDITION-TEXTURE/ELASTICITY/TURGOR/HAIR GROWTH (B): normal, B/L EDEMA (C): absent, B/L PIGMENTATION: normal, B/L Nails NAILS are: Elongated, overg rown, dystrophic, lytic, greater than 3mm thick, discolored and friable with crumbly malodorous subungual debris, with pain on palpation 1-5 B/L
--- OUTSIDE RECORDS SUMMARY | 2024-03-17 17:15 | XMS_ITS ---
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 Generated for Printi ng/Fakatiag/eTransmitting on:?03/17/2024 05:15 PM EST
--- OUTSIDE RECORDS SUMMARY | 2024-03-17 17:15 | XMS_ITS | Patient Health Record ---
Author Organization [facility] Address [address] [place] [address] Care Team Providers Care Electrical Electronics Engineers Name Role Phone Devan THOMAS, Priscila Hawkins Primary Care Provider Un available Garry Hassan Unavailable [phone] DomJulia viera Unavailable [phone] Allergies Allergen (clinical drug ingredient) Drug/Non Drug [...] W/U Status Risk Notes Problem Plantar wart (91986926) Plantar wart (B07.0) Active confirmed Problem Acquired hammer toe of left foot ([id number] 103) Other hammer toe(s) (acquired), left foot (M20.42) Active confirmed Vital Signs Height 6 ft in 08/25/2023 Weight 260 lbs 08/25/2023 BMI 35.26 kg/m2 08/25/2023 Encounters Encounter Location Date Provider Diagnosis [facility] [address] 08/25/2023 Julia Cook Tinea pedis of both feet B35.3 ; Plantar wart B07.0 ; Tinea unguium B35.1 ; Pain in right toe(s) M79.674 ; Pain in left toe(s) M79.675 and Left foot pain M79.672 [facility] [address] [address] 07/21/2023 Garry Hassan Assessments Encounter Date Diagnosis (ICD Code) Assessment Notes Treatment Notes Treatment Clinical Notes Section Notes 08/25/2023 Plantar wart (ICD-10 - B07.0) [...] Insured Coverage Start Date Coverage End Date [facility] [address] [place] [address] [id number] Derick Fields Self - patient is the insured Medical (General) History Medical History History ICD Code High blood pressure Measles blood clots Surgical History Surgery Date(Month/Year) Hospitalization History Reason Date(Month/[facility]) [facility] Blood clot, lung clot 2022 [facility]- Respiratory infection 08/01
--- OUTSIDE RECORDS SUMMARY | 2024-03-17 17:16 | XMS_ITS | Patient Health Record ---
Author Organization [facility] Address [address] [place] [address] Care Team Providers Care Pharmaceutical Botanist Name Role Phone Devan THOMAS, Priscila Primary Care Provider Thom Gaines Unavailable [phone] REASON FOR REFERRAL No Information SOCIAL HISTORY Sex Assigned At : Social History Observation Description Sex Assigned At Unknown PLAN OF TREATMENT No Information Insurance Providers Payer Name Payer Address Payer Phone Subscriber Number Group Number Insured Name Patient Relationship to Insured Coverage Start Date Coverage End Date [facility] [address] [address] [place], [place] [id number] RAMIRO JAMES Self - patient is the insured
== END 2024-03-17 17:00 | disposition home or self-care (01) ==
PROVIDERS: PCP Internal Medicine; Visit Provider Internal Medicine
DX: E11.9 Type 2 diabetes mellitus without complications (principal); Z79.01 Long term (current) use of anticoagulants; D68.51 Activated protein C resistance; N52.9 Male erectile dysfunction, unspecified; I10 Essential (primary) hypertension; E78.5 Hyperlipidemia, unspecified; L50.2 Urticaria due to cold and heat

== ENCOUNTER → 2024-03-17 15:51 | Outpatient (BNVA) | payer OTHER, SELFPAY | PROVIDERS: PCP Internal Medicine; Visit Provider Internal Medicine | DX: E11.9 Type 2 diabetes mellitus without complications (principal); D68.51 Activated protein C resistance; N52.9 Male erectile dysfunction, unspecified; I10 Essential (primary) hypertension; E78.5 Hyperlipidemia, unspecified; L50.2 Urticaria due to cold and heat; Z79.01 Long term (current) use of anticoagulants; Z79.899 Other long term (current) drug therapy | CPT/HCPCS: 96127 ==

== ENCOUNTER 2024-03-18 06:33 | Outpatient (REF) | payer OTHER, SELFPAY ==
[2024-03-18 10:16] LABS: Estimated Average Glucose 134 mg/dL; Hemoglobin A1c % 6.3 % (<6.0); Total Hemoglobin (HGBA1C) 3973.1908 umol/L
[2024-03-18 10:30] LABS: Alanine Aminotransferase 36 U/L (0-40); Anion Gap 11 (12-20); Aspartate Amino Transferase 29 U/L (5-37); Blood Urea Nitrogen 18 mg/dL (9-16); Calcium 9.4 mg/dL (8.4-10.2); Carbon Dioxide 28 mmol/L (22-29); Chloride 103 mmol/L (96-108); Cholesterol 168 mg/dL (<200); Estimated Glomerular Filt Rate > 60; Glucose Fasting 90 mg/dL (60-99); HDL Cholesterol 48 mg/dL (>40); LDL Cholesterol Calculated 93 mg/dL (<100); Potassium 4.3 mmol/L (3.3-5.1); Sodium 138 mmol/L (135-145); Triglycerides 137 mg/dL (<150)
[2024-03-18 11:06] LABS: Creatinine Urine 118.15 mg/dL; Microalbum/Creatinine Ratio Ur 9.3 ug/mg cr (<30)
== END 2024-03-18 06:34 | disposition home or self-care (01) ==
LOC: HO.HMGCLDS 06:33
PROVIDERS: PCP Internal Medicine; Visit Provider Internal Medicine
DX: E11.9 Type 2 diabetes mellitus without complications (principal); E78.5 Hyperlipidemia, unspecified; I10 Essential (primary) hypertension
CPT/HCPCS: 36415; 80048; 80061; 82043; 82570; 83036; 84450; 84460

== ENCOUNTER 2024-04-01 08:01 | Outpatient (REF) | payer OTHER, SELFPAY ==
[2024-04-01 11:13] LABS: Influenza A PCR NEGATIVE (Negative); Influenza B PCR NEGATIVE (Negative); Resp Syncy Virus RNA Qual PCR NEGATIVE (Negative); SARS COV2 PCR INHOUSE POSITIVE (Negative)
== END 2024-04-01 08:02 | disposition home or self-care (01) ==
LOC: HO.LAB 08:01
PROVIDERS: Physician Assistant; PCP Internal Medicine
DX: J22 Unspecified acute lower respiratory infection (principal); R09.89 Other specified symptoms and signs involving the circulatory and respiratory systems
CPT/HCPCS: 0241U

== ENCOUNTER 2024-04-01 08:01 | Outpatient (AMB) | payer OTHER, SELFPAY ==
[2024-04-01 08:08] VITALS: BP 126/80; PULSE 102; TEMP 37.3; O2SAT 95; BMI 36.3
--- NOTE | 2024-04-01 08:08 | MHC.OFFWIV ---
Intake Vital Signs 04/01/24 08:08 04/01/24 08:08 Height 6 ft 6 ft Weight 268 lb BMI 36.3 BP 126/80 Blood Pressure Location Lt brachial Position Sitting Pulse 102 H Pulse Source Pulse Oximeter Temp 99.1 F Temp Source Oral Pulse Oximetry (%) 95 Oxygen Delivery Method Room Air Intake Visit Reasons: EP congestion Intake Note: Pt is here today for a walk in visit. Pt c/o cough and congestion. Patient Tobacco Use Status: Never used Tobacco Allergies oxycodone Allergy (Verified 04/01/24 08:10) Itching Sulfa (Sulfonamide Antibiotics) Allergy (Verified 04/01/24 08:10) Itching HPI HPI Comments History of Present Illness Details History - The patient is a 63-year-old male presenting with acute respiratory infection symptoms. - Symptoms began last evening, presenting with congestion and fatigue, worsened compared to a previous episode of pneumonia treated with prednisone, azithromycin, and doxycycline. - Regular use of Symbicort for COPD is noted, but Albuterol inhaler is nearly out. Refills were sent by PCP in June which pt has not filled. - The patient has a low-grade fever (99.1?F) and reports palpitations potentially due to dehydration or fever. - No exposure to sick individuals was reported, and no recent medication was taken for current symptoms. - History of dermatitis managed with clobetasol propionate; the patient used hydroxyzine previously for itching but does not take currently. Physical Exam General: Cooperative, healthy appearing, comfortable and no acute distress Orientation/consciousness: Patient oriented x3 Limitations: No limitations Head: Normal to inspection Ears: Hearing grossly normal bilaterally, external ears normal and TM's normal bilaterally, but difficult to see in the left ear Nose: Normal external nose present, Normal nares present and No nasal discharge present Face and sinus: Normal facial exam and Yes sinuses slight tenderness noted on the right maxillary Mouth: Normal oral and palatal mucosa present and moist mucous membranes Throat: Yes tonsils normal, Yes uvula midline. Posterior oropharynx erythema, no exudates noted Eyes: Appearance normal, both eyes and all related structures Neck: Normal visual inspection Respiratory: vesicular lung sounds and a ins/exp wheezing throughout. Normal respiratory effort, able to speak in complete sentences, Actively coughing, no respiratory distress, not tachypneic, no tripod positioning and no use of accessory muscles Cardiovascular: Regular rate and rhythm. 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 Cognitive needs: No Hearing needs: No Vision needs: Yes Review of Systems Const All systems reviewed & are unremarkable except as noted in HPI and below Physical Exam Vital Signs: Last Vital Signs Temp 99.1 F 04/01/24 08:08 Pulse 102 H 04/01/24 08:08 BP 126/80 04/01/24 08:08 Pulse Ox 95 04/01/24 08:08 Oxygen Delivery Method Room Air 04/01/24 08:08 BMI result Body Mass Index 36.3 Results AMB Urinalysis, Automated UA Leukoctes Cancelled Penelope/uL Last Edit by PAULA Cazares on 04/01/24 08:22 UA Leukoctes previously reported as 0 Bre Lopez 04/01/24 08:22 UA Nitrite Cancelled Last Edit by PAULA Cazares on 04/01/24 08:22 UA Nitrite previously reported as Negative Bre Lopez 04/01/24 08:22 UA Urobilinogen Cancelled mg/dL Last Edit by PAULA Cazares on 04/01/24 08:22 UA Urobilinogen previously reported as 0.2 Bre Lopez 04/01/24 08:22 UA Protein Cancelled mg/dL Last Edit by PAULA Cazares on 04/01/24 08:22 UA Protein previously reported as 0 Bre Lopez 04/01/24 08:22 UA pH Cancelled Last Edit by PAULA Cazares on 04/01/24 08:22 UA pH previously reported as 6.0 Bre Lopez 04/01/24 08:22 UA Blood Cancelled Rc/uL Last Edit by PAULA Cazares on 04/01/24 08:22 UA Blood previously reported as 0 Bre Lopez 04/01/24 08:22 UA Specific D Lo Cancelled Last Edit by PAULA Cazares on 04/01/24 08:22 UA Specific D Lo previously reported as 1.005 Bre Lopez 04/01/24 08:22 UA Ketone Cancelled Last Edit by PAULA Cazares on 04/01/24 08:22 UA Ketone previously reported as Negative Bre Lopez 04/01/24 08:22 UA Bilirubin Cancelled mg/dL Last Edit by PAULA Cazares on 04/01/24 08:22 UA Bilirubin previously reported as 0 Bre Lopez 04/01/24 08:22 UA Glucose Cancelled mg/dL Last Edit by PAULA Cazares on 04/01/24 08:22 UA Glucose previously reported as 0 Bre Lopez 04/01/24 08:22 CANCELLED wrong patient Results Reviewed Results Reviewed: Laboratory Last Values Urine pH (Auto) Cancelled 04/01/24 08:16 Specific D Lo (Auto) Cancelled 04/01/24 08:16 Urine Protein (Auto) Cancelled 04/01/24 08:16 Glucose (UA)(Auto) Cancelled 04/01/24 08:16 Urine Ketones (Auto) Cancelled 04/01/24 08:16 Urine Blood (Auto) Cancelled 04/01/24 08:16 Urine Nitrite (Auto) Cancelled 04/01/24 08:16 Urine Bilirubin (Auto) Cancelled 04/01/24 08:16 Urine Urobilinogen (Auto) Cancelled 04/01/24 08:16 Leukocyte Esterase (Auto) Cancelled 04/01/24 08:16 Assessment & Plan Assessment & Plan (1) COPD with acute exacerbation: Code(s): J44.1 - Chronic obstructive pulmonary disease with (acute) exacerbation Plan: The management plan targets the exacerbation of chronic obstructive pulmonary disease and addresses symptoms of acute respiratory infection. A chest radiograph will assess potential pneumonia. Initiation of prednisone 50 mg daily for five days is imperative to reduce inflammation and improve respiratory function. An azithromycin course is prescribed for both its antibacterial and anti-inflammatory benefits. The patient is instructed to hydrate well to manage dehydration and associated palpitations. The Albuterol inhaler needs a refill for symptomatic relief as needed. Addressing dermatitis should continue with clobetasol use and cautious hydroxyzine administration, avoiding usage in conjunction with prednisone. Further therapy adjustments depend on chest imaging results. My interpretation of CXR is no acute process. Patient was informed and verbally consented to the use of an ambient scribe for clinic note documentation during this visit (2) Lower respiratory infection (e.g., bronchitis, pneumonia, pneumonitis, pulmonitis): Code(s): J22 - Unspecified acute lower respiratory infection Plan: as above Orders: Orders XR chest 2V Today R05.9 - Cough, unspecified SARS-CoV2/FLU/RSV Today R09.89 - Other specified symptoms and signs involving the circulatory and respiratory systems Medications: New prednisone 50 mg PO QAM 5 tabs 0RF azithromycin For 250 mg dose pack: take 500 mg today (day 1), then 250 mg for 4 days (days 2-5) PO 6 tabs 0RF Discontinued hydroxyzine HCl Discontinued Reason: Patient no longer taking 25 mg PO BEDTIME PRN 30 tabs 0RF itching Coding Level of Care Code Est Pt Level 4 (89179) Diagnoses COPD with acute exacerbation J44.1 Lower respiratory infection (e.g., bronchitis, pneumonia, pneumonitis, pulmonitis) J22
== END 2024-04-01 09:05 | disposition home or self-care (01) ==
PROVIDERS: PCP Internal Medicine; Visit Provider Physician Assistant
DX: J44.1 Chronic obstructive pulmonary disease with (acute) exacerbation (principal); J22 Unspecified acute lower respiratory infection; Z13.9 Encounter for screening, unspecified

== ENCOUNTER 2024-04-01 08:51 | Outpatient (REF) | payer OTHER, SELFPAY ==
--- NOTE | ~2024-04-01 | XR_ITS ---
EXAMINATION: XR CHEST CLINICAL INFORMATION: R05.9 - Cough, unspecified COMPARISON: 02/01/2024, 11/28/2023. TECHNIQUE: 2 views of the chest were obtained. FINDINGS: The cardiac, hilar, and mediastinal contours are normal. The lungs are clear bilaterally. There is no pneumothorax or pleural effusion. There is no focal osseous or soft tissue abnormality. Mild degenerative changes in the spine. XR/XR chest 2V IMPRESSION: No active disease. Electronically signed by: Gee Meraz MD 04/01/2024 09:05 AM EST
== END 2024-04-01 08:52 | disposition home or self-care (01) ==
LOC: HO.HMGCX 08:51
PROVIDERS: PCP Internal Medicine; Visit Provider Physician Assistant
DX: R05.9 Cough, unspecified (principal)
CPT/HCPCS: 71046

== ENCOUNTER → 2024-04-01 08:54 | Outpatient (BNV) | payer OTHER, SELFPAY | PROVIDERS: PCP Internal Medicine; Visit Provider Radiology Diagnostic Radiology | DX: R05.9 Cough, unspecified (principal) | CPT/HCPCS: 71046 ==

== ENCOUNTER 2024-04-19 08:01 | Outpatient (AMB) | payer OTHER, SELFPAY ==
--- NOTE | 2024-04-19 08:12 | AM.OFFWIN_ITS ---
Intake Vital Signs 04/19/24 08:19 Weight 266 lb BP 128/80 Blood Pressure Location Lt brachial Position Sitting Pulse 72 Pulse Source Pulse Oximeter Temp 97.7 F Temp Source Oral Pulse Oximetry (%) 97 Oxygen Delivery Method Room Air Intake Visit Reasons: EP respiratory Intake Note: Patient here for cough and wheezing that started a few days ago. Patient Tobacco Use Status: Never used Tobacco Allergies oxycodone Allergy (Verified 04/19/24 08:18) Itching Sulfa (Sulfonamide Antibiotics) Allergy (Verified 04/19/24 08:18) Itching Do you need a note to return to daycare/school/sports/work: Yes HPI HPI Comments History of Present Illness Details This is a 64-year-old male with a past medical history of COPD not currently oxygen dependent, diabetes, hypertension, hyperlipidemia, DVT/factor 5 Leiden currently maintained on Eliquis presenting for evaluation of cough and wheezing that has been ongoing for the past 3 days. Patient was seen here in the walk-in on April 01 and had a clear chest x-ray and was treated with prednisone and azithromycin. Patient states that he felt significantly better but then his symptoms recurred 3-5 days ago. Patient denies having any fevers or chills reports using his albuterol inhaler 2-3 times daily. Patient states that he is compliant with his Symbicort 2 puffs b.i.d.. Patient denies having any overt chest pain, hemoptysis or dyspnea on exertion. [facility] Medical History (Updated 04/19/24 @ 08:59 by Norma Ly PA-C) Urticaria due to heat COPD with acute exacerbation Type 2 diabetes mellitus without complication, with no history of insulin use History of pulmonary embolus (PE) History of DVT (deep vein thrombosis) Pulmonary nodule 1 cm or greater in diameter Current use of correction anticoagulation Factor 5 Leiden mutation, heterozygous Erectile dysfunction Vitamin D deficiency Colon cancer screening Obesity (BMI 30-39.9) Varicose veins of both lower extremities Eczema Dyslipidemia Essential hypertension Surgical History Hx of colonoscopy S/P anal fissurectomy Family History Father Diabetes mellitus Coronary artery disease Mother Dementia Sister No problems noted. 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 Cognitive needs: No Hearing needs: No Vision needs: Yes Review of Systems Const All systems reviewed & are unremarkable except as noted in HPI and below Denies chills, Reports fatigue and Denies fever(s) Eyes Reports no additional complaints ENT Reports no additional complaints Card Denies chest pain, Denies rapid heart rate, Denies pedal edema and Reports dyspnea Resp Reports no additional complaints and Reports dyspnea GI Reports no additional complaints Reports no additional complaints Musc Reports no additional complaints Skin/Breast Reports system reviewed and no additional complaints, except as documented Neuro Reports no additional complaints Psych Reports no additional complaints Endo Reports no additional complaints and Reports fatigue Ceasar/Lymph Reports no additional complaints Aller/Immun Reports no additional complaints Physical Exam Const General: cooperative, comfortable, well developed, alert, awake and Physically active; No lethargic Nutritional Appearance: overweight Orientation/consciousness: patient oriented x3 and No lethargic Limitations: no limitations Resp Effort & Inspection: normal respiratory effort, able to speak in complete sentences, normal respiratory pattern, no audible wheezes, no cough, no nasal flaring and no use of accessory muscles Auscultation: rhonchi, wheezes and lung sounds not diminished Cardio Rate: regular rate Rhythm: regular rhythm Skin General skin exam: no rashes or lesions noted Neuro General: patient oriented x3 Psych Appearance: grossly normal Mental Status: mental status grossly normal Insight: Good insight present (Psych) Judgement: Good judgement present (Psych) Assessment & Plan Assessment & Plan (1) COPD (chronic obstructive pulmonary disease): Comment: Patient is evaluated. Given his increased use of albuterol, we have discussed the possibility of requiring a change in his maintenance medication for COPD which I will defer to his primary care physician. Patient is also requesting a refill of his Viagra which will be deferred to his PCP as well. Code(s): J44.9 - Chronic obstructive pulmonary disease, unspecified Qualifiers: COPD type: chronic bronchitis Chronic bronchitis type: simple Qualified Code(s): J41.0 - Simple chronic bronchitis Plan: Imaging is deferred at this time. Prednisone 40 mg x5 days. Patient will follow up with Dr. Hartman as an outpatient. Medications: New prednisone 40 mg (2 x 20 mg) PO DAILY 10 tabs 0RF Coding Level of Care Code Est Pt Level 3 (56597) Diagnoses Simple chronic bronchitis J41.0 COPD type: chronic bronchitis Chronic bronchitis type: simple Time Spent (min) 25
[2024-04-19 08:19] VITALS: BP 128/80; PULSE 72; TEMP 36.5; O2SAT 97
== END 2024-04-19 09:06 | disposition home or self-care (01) ==
PROVIDERS: PCP Internal Medicine; Visit Provider Physician Assistant
DX: J41.0 Simple chronic bronchitis (principal)

== ENCOUNTER → 2024-04-19 08:01 | Outpatient (BNVA) | payer OTHER, SELFPAY | PROVIDERS: PCP Internal Medicine ==

== ENCOUNTER 2024-05-31 15:45 | Outpatient (REF) | payer OTHER, SELFPAY ==
--- NOTE | 2024-05-31 16:03 | PFT_ITS ---
Flows: FEV1: 79 % of predicted at 2.99 L FVC: 70 % of predicted at 3.50 L FEV1/FVC: 86 % Bronchodilator response: Absent Volumes: Total lung capacity: 60 % of predicted at 4.86 L Residual volume: 57 % of predicted at 1.56 L Slow vital capacity: 61 % of predicted at 3.31 L Expiratory reserve volume: 27 % of predicted at 0.41 L Diffusion capacity: Normal Impression: Moderate restrictive ventilatory defect with no bronchodilator response. Decreased expiratory reserve volume suggests extrathoracic restriction likely secondary to abdominal obesity. MTDD
[2024-05-31 17:01] VITALS: PULSE 67
[2024-05-31 17:03] VITALS: PULSE 67
== END 2024-05-31 15:46 | disposition home or self-care (01) ==
LOC: HO.RESP 15:45
PROVIDERS: PCP Internal Medicine; Visit Provider Internal Medicine
DX: J96.01 Acute respiratory failure with hypoxia (principal)
CPT/HCPCS: 94010; 94640; 94727; 94729

== ENCOUNTER → 2024-05-31 16:03 | Outpatient (BNV) | payer OTHER, SELFPAY | PROVIDERS: PCP Internal Medicine; Visit Provider Internal Medicine Pulmonary Disease | DX: J98.01 Acute bronchospasm (principal) | CPT/HCPCS: 94060; 94727; 94729 ==

== ENCOUNTER 2024-06-08 13:21 | Outpatient (AMB) | payer OTHER, SELFPAY ==
--- NOTE | 2024-06-08 13:34 | A.OFFPC_ITS ---
Vital Signs 06/08/24 13:37 Height 6 ft Weight 276 lb BMI 37.4 BP 104/70 Blood Pressure Location Lt brachial Position Sitting Respiration 16 Pulse 62 Pulse Source Pulse Oximeter Temp 97.8 F Temp Source Oral Pulse Oximetry (%) 97 Oxygen Delivery Method Room Air Intake Visit Reasons: Annual PE Intake Note: Pt is here today for his PE Allergies oxycodone Allergy (Verified 06/08/24 13:50) Itching Sulfa (Sulfonamide Antibiotics) Allergy (Verified 06/08/24 13:50) Itching Medication List - Last Reconciled 06/08/24 by Priscila Hartman MD albuterol sulfate 90 mcg/actuation (Ventolin HFA) 1 inh inhalation QID PRN apixaban (Eliquis) 5 mg PO BID betamethasone dipropionate 0.05% 1 appl topical DAILY PRN 10 days hydrochlorothiazide 12.5 mg PO DAILY lisinopril 5 mg PO DAILY rosuvastatin 5 mg PO Q2D 90 days sildenafil 100 mg PO DAILY PRN Symbicort 160-4.5 mcg/actuation (budesonide-formoterol) 2 puffs inhalation Q12H NS Tobacco use date assessed: 06/08/24 Fall risk assessment: No Falls in past year Last assessed Fall Risk: 06/08/24 Dental Screening Dental Screen Date: 06/08/24 Did you have a dental visit in the last 12 months?: No Did you have a dental problem in the last 6 months where you did not have access to dental care?: No Was dental information given to patient?: Patient has dentist [facility], [facility]–1983 Medical History (Updated 06/08/24 @ 14:24 by Priscila Hartman MD) Pain of plantar aspect of heel Restrictive airway disease Urticaria due to heat COPD with acute exacerbation Type 2 diabetes mellitus without complication, with no history of insulin use History of pulmonary embolus (PE) History of DVT (deep vein thrombosis) Pulmonary nodule 1 cm or greater in diameter Current use of manager long term care anticoagulation Factor 5 Leiden mutation, heterozygous Erectile dysfunction Vitamin D deficiency Colon cancer screening Obesity (BMI 30-39.9) Varicose veins of both lower extremities Eczema Dyslipidemia Essential hypertension Surgical History Hx of colonoscopy S/P anal fissurectomy Family History Father Diabetes mellitus Coronary artery disease Mother Dementia Sister No problems noted. 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 1. Little interest or pleasure in doing things: not at all 2. Feeling down, depressed, or hopeless: not at all 3. Trouble falling or staying asleep, or sleeping too much: not at all 4. Feeling tired or having little energy: not at all 5. Poor appetite or overeating: not at all 6. Feeling bad about yourself - or that you are a failure or have let yourself or your family down: not at all 7. Trouble concentrating on things, such as reading the newspaper or watching television: not at all 8. Moving or speaking so slowly that other people could have noticed. Or the opposite - being so fidgety or restless that you have been moving around a lot more than usual: not at all 9. Thoughts that you would be better off or of hurting yourself in some way: not at all Total score: 0 Depression Screening Interpretation: Negative Depression Screening Done: Yes 71537 - PHQ-9 Billing: Yes Source: Developed by Drs. Thom Foreman, Melody Ardon, Aamir Blevins and colleagues, with an educational aruna from [employer]. Thrive Questionnaire Date Thrive assessed: 06/08/24 I am a: Patient What is your living situation today?: I have a steady place to live Within the past 12 months, did the food you bought not last and you didn't have the money to get more?: I choose not to answer this question Within the past 12 months, did you worry whether your food would run out before you got money to buy more?: I choose not to answer this question Do you have trouble paying for medicines?: I choose not to answer this question Do you have trouble getting transportation to medical appointments?: I choose not to answer this question Do you have trouble paying your heating and electricity bill?: I choose not to answer this question Do you have trouble taking care of your child, family member or friend?: I choose not to answer this question Do you have trouble with day-to-day activities such as bathing, preparing meals, shopping, managing finances, etc.?: I choose not to answer this question Are you currently unemployed and looking for a job?: I choose not to answer this question Are you interested in more education?: I choose not to answer this question Please select the resources that you would like help with: Paying for medicine Currently or been in a relationship where the following occur: No concerns reported THRIVE Score: 0 AUDIT C Alcohol Use Questionnaire (AUDIT-C) 1. How often do you have a drink containing alcohol?: Monthly or less 2. How many drinks containing alcohol do you have on a typical day when you are drinking?: 1 or 2 3. How often do you have six or more drinks on one occasion?: Never Total Score: 1 JESSICA-7 AMB Questionnaire JESSICA-7 Date JESSICA - 7 assessed: 06/08/24 Feeling nervous, anxious, or on edge: 1 = Several days Not being able to stop or control worryin = Several days Worrying too much about different things: 0 = Not at all Trouble relaxin = Not at all Being so restless that it is hard to sit still: 0 = Not at all Becoming easily annoyed or irritable: 0 = Not at all Feeling afraid as if something awful might happen: 0 = Not at all Total JESSICA-7 score (0-4 normal; 5-9 mild; 10-14 moderate; 15-21 severe): 2 Source: Developed by Drs. Thom Foreman, Melody Ardon, Aamir Blevins and colleagues, with an educational aruna from [employer]. JESSICA-7 Assessment Billing JESSICA-7 Assessment Tool: JESSICA-7 Assessment 32520 Physical exam (Primary Care) Vital Signs: Last Vital Signs Temp 97.8 F 06/08/24 13:37 Pulse 62 06/08/24 13:37 Resp 16 06/08/24 13:37 BP 104/70 06/08/24 13:37 Pulse Ox 97 06/08/24 13:37 Oxygen Delivery Method Room Air 06/08/24 13:37 BMI result Body Mass Index 37.4 Tobacco/Smoking Status: Tobacco use Status Tobacco use date assessed 06/08/24 06/08/24 13:43 Patient Tobacco Use Status Never used Tobacco 06/08/24 13:34 e-Cigarette/Vaping Use Never Used 06/08/24 13:34 PHQ-9: PHQ-9 Score PHQ-9: Total score 0 06/08/24 13:52 Depression Screening Interpretation: Negative Thrive Assessment: Date of Thrive Assessment Date Thrive assessed 06/08/24 06/08/24 13:43 Currently or been in a relationship where the following occur: No concerns reported Immunizations pneumoc 20-suresh conj-dip cr(PF) 0.5 mL IM syringe Performing Provider: Priscila Hartman MD Performing Location[place] [facility] Administered by: Barbara Corona CMA on 06/08/24 14:19 Dose Route Admin Location Dispensed Lot Number Expiration Date [facility] Pediatric Psychiatrist 0.5 mL IM Left Deltoid 0.5 mL [id number] 07/13/25 2680-6722-06 WYETH/PFIZER VIS Given Date VIS Provided VIS Publication Date 06/08/24 Single Vaccine 21 Eligibility Eligibility Date Funding Source Not [facility] Eligible 06/08/24 Private Results Reviewed Results Reviewed: Laboratory Tests 03/18/24 06:41 Urine Creatinine 118.15 Urine Microalbumin 11.0 Microalb/Creat Ratio 9.3 Name: Derick Fields Age/Sex: 63/M : 1960 Unit#: [id number] Attend Dr: Priscila Hartman MD Re03/18/24 Status: DEP REF Location: [facility] Disch: SPEC : [id number] ODETTE: 03/18/24 STATUS: COMP REQ : [id number] RECD: 03/18/[address]: Priscila Hartman MD COMP: 03/18/24 ENTERED: 03/18/[address]: ORDERED: Met Prof Fast, AST, ALT, Lipid Panel Test Result Flag Reference Sodium 138 135-145 mmol/L Potassium 4.3 3.3-5.1 mmol/L CL 103 96-108 mmol/L CO2 28 22-29 mmol/L Gap 11 L 12-20 BUN 18 H 9-16 mg/dL Creat 0.81 0.5-1.4 mg/dL eGFR > 60 Chronic Kidney Disease: Estimated GFR < 60 mL/min/1.73m2 Severe Kidney Disease: Estimated GFR < 15 mL/min/1.73m2 FBS 90 60-99 mg/dL CA 9.4 8.4-10.2 mg/dL AST (GOT) 29 5-37 U/L ALT (GPT) 36 0-40 U/L Triglyceride 137 <150 mg/dL Desirable Triglyceride: less than 150 mg/dL Borderline High Triglyceride 150-199 mg/dL High Triglyceride: 200-499 mg/dL Very High Triglyceride: greater than or equal to 5OO mg/dL Cholesterol 168 <200 mg/dL Desirable Cholesterol: less than 200 mg/dL Borderline High Cholesterol: 200-239 mg/dL High Cholesterol: greater than 239 mg/dL LDL Calculated 93 <100 mg/dL Desirable LDL: less than 100 mg/dL Near Optimal/Above Optimal LDL: 110-129 mg/dL Borderline High LDL: 130-159 mg/dL High LDL: 160-189 mg/dL Very High LDL: greater than or equal to 190 mg/dL HDL 48 >40 mg/dL Desirable HDL: greater than 40 mg/dL Note: This HDL assay may give artificially low results in patients with liver disease. Laboratory Tests 03/18/24 06:41 Estimat Average Glucose 134 Hemoglobin A1c % 6.3 H Coding Level of Care Code Est Pt Prev Care >65y(02327) Diagnoses Type 2 diabetes mellitus without complication, with no history of insulin use E11.9 Pain of plantar aspect of heel M79.673 Encounter for screening for malignant neoplasm of colon Z12.11 Restrictive airway disease J98.4 Simple chronic bronchitis J41.0 COPD type: chronic bronchitis Chronic bronchitis type: simple Current use of manager long term care anticoagulation Z79.01 Factor 5 Leiden mutation, heterozygous D68.51 Erectile dysfunction N52.9 Obesity (BMI 30-39.9) E66.9 Essential hypertension I10 Eczema L30.9 Dyslipidemia E78.5 Annual visit for general adult medical examination with abnormal findings Z00.01 Additional Codes PHQ-9 - 32847 - PHQ-9 Billing: Yes ([id number]) JESSICA-7 Assessment Billing - JESSICA-7 Assessment Tool: JESSICA-7 Assessment 79642 ([id number]) Assessment & Plan Assessment & Plan (1) Type 2 diabetes mellitus without complication, with no history of insulin use: Code(s): E11.9 - Type 2 diabetes mellitus without complications Category: Medical Plan: Hemoglobin A1c now at 6.3%, continue with adherence to healthy eating habits, weight loss and regular exercise will repeat hemoglobin A1c in October 2024. Advised to schedule an appointment with Ophthalmology for diabetes retinopathy screening. Referred to [facility] for diabetes foot exam. Reminded to get his yearly flu shot, does not want to get COVID booster, Prevnar 20 given today (2) Pain of plantar aspect of heel: Code(s): M79.673 - Pain in unspecified foot Category: Medical Plan: Consult with [facility] ordered (3) Encounter for screening for malignant neoplasm of colon: Code(s): Z12.11 - Encounter for screening for malignant neoplasm of colon Plan: Referral to Dr. Ko ordered, overdue for a screening colonoscopy, last done in 2009 (4) Restrictive airway disease: Comment: PFT 05/2024 - Moderate restrictive ventilatory defect with no bronchodilator response. Decreased expiratory reserve volume suggests extrathoracic restriction likely secondary to abdominal obesity. Code(s): J98.4 - Other disorders of lung Category: Medical (5) COPD (chronic obstructive pulmonary disease): Comment: Patient is evaluated. Given his increased use of albuterol, we have discussed the possibility of requiring a change in his maintenance medication for COPD which I will defer to his primary care physician. Patient is also requesting a refill of his Viagra which will be deferred to his PCP as well. Code(s): J44.9 - Chronic obstructive pulmonary disease, unspecified Category: Medical Qualifiers: COPD type: chronic bronchitis Chronic bronchitis type: simple Qualified Code(s): J41.0 - Simple chronic bronchitis (6) Current use of manager long term care anticoagulation: Code(s): Z79.01 - retirement (current) use of anticoagulants Category: Medical (7) Factor 5 Leiden mutation, heterozygous: Comment: Seen by [facility], Dr. 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 Category: Medical (8) Erectile dysfunction: Code(s): N52.9 - Male erectile dysfunction, unspecified Category: Medical (9) Obesity (BMI 30-39.9): Code(s): E66.9 - Obesity, unspecified Category: Medical (10) Essential hypertension: Code(s): I10 - Essential (primary) hypertension Category: Medical (11) Eczema: Code(s): L30.9 - Dermatitis, unspecified Category: Medical (12) Dyslipidemia: Code(s): E78.5 - Hyperlipidemia, unspecified Category: Medical (13) Annual visit for general adult medical examination with abnormal findings: Code(s): Z00.01 - Encounter for general adult medical examination with abnormal findings Orders: Orders Pneumococcal 20 Immunization Today Z23 - Encounter for immunization Hemoglobin A1c 10/14/24 E11.9 - Type 2 diabetes mellitus without complications, E66.9 - Obesity, unspecified, E78.5 - Hyperlipidemia, unspecified, I10 - Essential (primary) hypertension Alanine Aminotransferase 10/14/24 E11.9 - Type 2 diabetes mellitus without complications, E66.9 - Obesity, unspecified, E78.5 - Hyperlipidemia, unspecified, I10 - Essential (primary) hypertension Basic Metabolic Panel Fasting 10/14/24 E11.9 - Type 2 diabetes mellitus without complications, E66.9 - Obesity, unspecified, E78.5 - Hyperlipidemia, unspecified, I10 - Essential (primary) hypertension Lipid Panel 10/14/24 E11.9 - Type 2 diabetes mellitus without complications, E66.9 - Obesity, unspecified, E78.5 - Hyperlipidemia, unspecified, I10 - Essential (primary) hypertension Aspartate Amino Transferase 10/14/24 E11.9 - Type 2 diabetes mellitus without complications, E66.9 - Obesity, unspecified, E78.5 - Hyperlipidemia, unspecified, I10 - Essential (primary) hypertension Referrals Podiatry Referral E11.9 - Type 2 diabetes mellitus without complications, M79.673 - Pain in unspecified foot Gastroenterology Referral Z12.11 - Encounter for screening for malignant neoplasm of colon Medications: Refilled sildenafil administer 30 minutes to 4 hours before activity 100 mg PO DAILY PRN 10 tabs 2RF sexual activity betamethasone dipropionate 0.05% 1 appl topical DAILY PRN 45 grams 1RF skin irritation 10 days L30.9 - Dermatitis, unspecified
[2024-06-08 13:37] VITALS: BP 104/70; PULSE 62; RESP 16; TEMP 36.6; O2SAT 97; BMI 37.4
--- OUTSIDE RECORDS SUMMARY | 2024-06-08 15:53 | XMS_ITS | Clinical Summary ---
Author Organization [facility] Address [address] [place] [address] Care Team Providers Care Survey Research Center Director Name Role Phone Priscila Hartman MD Primary Care Provider [phone] Allergies Active Allergy Reactions Criticality Noted Date Comments Cephalexin 02/02/2021 Other reaction(s): itchy Oxycodone Rash High 12/06/2022 Medications Medication Sig Dispensed Refills Start Date End Date Status Ventolin HFA 108 (90 Base) MCG/ACT inhaler INHALE 2 PUFFS EVERY 4 HOURS FOR SHORTNESS OF BREATH OR WHEEZING 0 12/07/2022 Active Eliquis 5 MG TABS tablet 0 12/12/2022 Active betamethasone dipropionate (DIPROSONE) 0.05 % ointment APPLY TOPICALLY DAILY NEEDED FOR SKIN IRRITATION FOR 10 DAYS 0 12/03/2022 Active guaiFENesin (MUCINEX) 600 MG 12 hr tablet 1 tablet (600 mg total). 0 08/02/2018 Active hydroCHLOROthiazide (MICROZIDE) 12.5 MG capsule 1 capsule (12.5 mg total). 0 11/20/2022 Active lisinopril (PRINIVIL,ZESTRIL) tablet 5 mg TAKE ONE TABLET BY MOUTH EVERY DAY 0 12/05/2022 Active mometasone-formoterol (DULERA) 100-5 MCG/ACT inhaler Daily 0 02/03/2021 Active sildenafil (VIAGRA) 100 MG tablet TAKE ONE TABLET BY MOUTH 30 MINUTES TO 4 HOURS NEEDED BEFORE ACTIVITY 0 12/04/2022 Active Active Problems No known active problems Social History Tobacco Use Types Packs/Day Years Used Date Smoking Tobacco: Never Smokeless Tobacco: Never Tobacco Cessation:Counseling Given: Not Answered Alcohol Use Standard Drinks/Week Comments Never 0 (1 standard drink = 0.6 oz pur e alcohol) Sex and Gender Information Value Date Recorded Sex Assigned at Male 11/25/2022 11:20 AM EDT Gender Identity Not on file Sexual Orientation Not on file Job Start Date Occupation Industry Not on file Not on file Not on file Last Filed Vital Signs Vital Sign Reading Time Taken Comments Blood Pressure 135/72 03/30/2023 2:35 PM EST Pulse 73 03/30/2023 2:35 PM EST Temperature 36.9 ??C (98.4 ??F) 03/30/2023 2:35 PM ES T Respiratory Rate - - Oxygen Saturation 96% 03/30/2023 2:35 PM EST Inhaled Oxygen Concentration - - Weight 123.8 kg (273 lb) 03/30/2023 2:35 PM EST Height - - Body Mass Index - - Plan of Treatment Health Maintenance Due Date Last Done Comments Hepatitis C Screening 1960 COVID-19 Vaccine (#1) 1960 Depression Screening 1970 Preventative Health Evaluation 1976 DTap / Tdap / Td (1 - Tdap) 1977 Colon Cancer Screening (Colonoscopy) 2003 Shingrix-Zoster Vaccine (1 of 2) 2008 Fall Risk Assessment 2023 Pneumococcal Vaccine (1 of 1 - PCV) 2023 Influenza Vaccine (#1) 2023 03/21/2015 RSV Adult > 60+ Yrs or Pregn ant (1 - 1-dose 75+ series) 2033 Hepatitis B Vaccines Aged Out No long er eligible based on patient's age to complete this topic RSV Ped < 20 months Aged Out No longe r eligible based on patient's age to complete this topic Care Teams [employer] Director Relationship Specialty Start Date End Date Priscila Hartman MD [address] [place] [address] RADHA SALINAS [id number] PCP - General Internal Medicine 11/25/22
--- OUTSIDE RECORDS SUMMARY | 2024-06-08 15:53 | XMS_ITS ---
Author Organization [facility] Address [address] [place] [address] Care Team Providers Care Wireless Sales Manager Name Role Phone Devan THOMAS, Priscila Hawkins Primary Care Provider Un available Garry Hassan Unavailable [phone] REASON FOR VISIT VERIFICATION CLERK PPWK Entered Encounters Encounter Location Date Provider Diagnosis [facility] [address] [place] [address] 07/21/2023 Garry Hassan Plan Of Treatment No Information Progress Notes * Derick FIELDS WDOB:1960 (63 yo M)Acc No.[id number]:07/21/2023 Patient:?Derick Fields :1960???Age:63 Y???Sex:Male Address:[address], [address] , [place], [address] * true * Date:? Generated for Printi ng/Faxing/eTransmitting on:?06/08/2024 03:52 PM EDT
--- OUTSIDE RECORDS SUMMARY | 2024-06-08 15:53 | XMS_ITS ---
Author Organization [facility] Address [address] [place] [address] Care Team Providers Care Forming Machine Operator Name Role Phone Devan THOMAS, Priscila Hawkins Primary Care Provider Un available Garry Hassan Unavailable [phone] Julia Cook Unavailable [phone] Allergies Allergen (clinical drug ingredient) Drug/Non Drug [...] W/U Status Risk Notes Problem Plantar wart (84241000) Plantar wart (B07.0) Active confirmed Vital Signs Height 6 ft in 08/25/2023 Weight 260 lbs 08/25/2023 BMI 35.26 kg/m2 08/25/2023 Encounters Encounter Location Date Provider Diagnosis [facility] [address] [address] 08/25/2023 Julia Joyce Tinea pedis of both [...] Pt defers any other forms of tx (01910) Debride Nail 6-10 Nail debridement Nail debridem ent performed extensively to reduce/remove overall nail length, girth, thickness, subungual debris, and necrotic tissue, by manual and electrical means through the use of a nail nipper and/or dremel, to more viable healthy nail plate or bed tissue 1-5. Silver nitrate used for any petechial bleeding as necessary. Patient chooses, no pharmaceutical tx (53459) Progress Notes * Derick FIELDS WDOB:1960 (63 yo M)Acc No.[id number]:08/25/2023 Progress Notes Patient:?Derick Fields Provider:?Julia Cook DPM :1960???Age:63 Y???Sex:Male Osmin e:08/25/2023 Address: [address], [address] , [facility] Pcp:Mikki Philip Subjective: * Chief Complaints: * [...] ?no Exercise. ?Marital status: single. 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 * Medications:?TakingBetametha sone eliquis Lisinopril 0.5 [...] as necessary. Patient chooses, no pharmaceutical tx (45548).?Wart Treatment:?Procedure?Verrucae were debrided to pin-point bleeding margins with sterile 15 surgical blade, silver nitrate chemocautery applied, recomm. immune-boosting meds such as zinc, recomm. follow up with topical chemosurgical agents, Pt defers any other forms of tx (99958).? * Procedure Codes:?79776 DEBRI DE NAIL, 6 OR MORE, Modifiers: XS 51775 Wart Destruction, 1-14, Modifiers: XS * Preventive [...] Cook DPM Date:?01/2024 Generated for Rachel aguiar/Radha/Sonya on:?06/08/2024 03:52 PM EDT History and Physical Notes * HPI (History [...]
--- OUTSIDE RECORDS SUMMARY | 2024-06-08 15:53 | XMS_ITS | Patient Health Record ---
Author Organization [facility] Address [address] [place] [address] Care Team Providers Care Change Management Administrator Name Role Phone Devan THOMAS, Priscila Hawkins Primary Care Provider Un available Garry Hassan Unavailable [phone] DomJulia viera Unavailable [phone] Allergies Allergen (clinical drug ingredient) Drug/Non Drug [...] W/U Status Risk Notes Problem Plantar wart (07207623) Plantar wart (B07.0) Active confirmed Problem Acquired hammer toe of left foot ([id number] 103) Other hammer toe(s) (acquired), left foot (M20.42) Active confirmed Vital Signs Height 6 ft in 08/25/2023 Weight 260 lbs 08/25/2023 BMI 35.26 kg/m2 08/25/2023 Encounters Encounter Location Date Provider Diagnosis [facility] [address] 08/25/2023 Julia Cook Tinea pedis of both feet B35.3 ; Plantar wart B07.0 ; Tinea unguium B35.1 ; Pain in right toe(s) M79.674 ; Pain in left toe(s) M79.675 and Left foot pain M79.672 [facility] [address] [address] 07/21/2023 Garry Hassan Assessments Encounter Date Diagnosis [...] Insured Coverage Start Date Coverage End Date [facility] [address] [place] [address] [id number] Derick Fields Self - patient is the insured Medical (General) History Medical History History ICD Code High blood pressure Measles blood clots Surgical History Surgery Date(Month/Year) Hospitalization History Reason Date(Month/[facility] Blood [facility] lung clot [facility] Respiratory infection 08/01
--- OUTSIDE RECORDS SUMMARY | 2024-06-08 15:53 | XMS_ITS | Clinical Summary ---
Author Organization [facility] Address [address] [place] [address] Care Team Providers Care Manager Of Business Name Role Phone Priscila Hartman MD Primary Care Provider Social History Tobacco Use Types Packs/Day Years Used Date Smoking Tobacco: Never Smokeless Tobacco: Never Alcohol Use Standard Drinks/Week Comments Never 0 (1 standard drink = 0.6 oz pur e alcohol) Sex and Gender Information Value Date Recorded Sex Assigned at Not on file Legal Sex Male 9:11 PM EST Gender Identity Not on file Sexual Orientation Not on file Obstetrics History Last Filed Vital Signs Vital Sign Reading Time Taken Comments Blood Pressure 135/72 03/30/2023 2:35 PM EST Sit ting Left arm Pulse 73 03/30/2023 2:35 PM EST Temperature - - Respiratory Rate - - Oxygen Saturation - - Inhaled Oxygen Concentration - - Weight 124 kg (273 lb) 03/30/2023 2:35 PM EST Height - - Body Mass Index - - Plan of Treatment Health Maintenance Due Date Last Done Comments DTaP,Tdap,and Td Vaccines (1 - Tdap) 1977 Pneumococcal Vaccine: 50+ Years (1 of 1 - PCV) 2008 Zoster Vaccines (1 of 2) 2008 Abdominal Aortic Aneurysm (AAA) Screen 02/15/2022 Cholesterol Screening (Lipid Panel) 02/15/2022 Colorectal Cancer Screening: Colonoscopy 02/15/2022 Depression Screening 02/15/2022 Hepatitis C Screening 02/15/2022 Social Influencers of Health Screening 02/15/2022 Falls Risk Assessment 2023 COVID-19 Vaccine (3 - 2023-2 5 season) 2023 07/11/2020, 06/13/2020 Influenza Vaccine (#1) 2023 03/21/2015 RSV Immunization Patients 60 + Years Old (1 - 1-dose 75+ series) 2033 HIB Vaccines Aged Out No longer eligi ble based on patient's age to complete this topic HPV Vaccines Aged Out No longer eligi ble based on patient's age to complete this topic Hepatitis A Vaccines Aged Out No long er eligible based on patient's age to complete this topic Hepatitis B Vaccines Aged Out No long er eligible based on patient's age to complete this topic IPV Vaccines Aged Out No longer eligi ble based on patient's age to complete this topic MMR Vaccines Aged Out No longer eligi ble based on patient's age to complete this topic Meningococcal ACWY Vaccine Aged Out N o longer eligible based on patient's age to complete this topic Meningococcal B Vacine Aged Out No lo nger eligible based on patient's age to complete this topic RSV Immunization Patients Under 20 months Aged Out No longer eligible b ased on patient's age to complete this topic Varicella Vaccines Aged Out No longer eligible based on patient's age to complete this topic Care Teams Manager Of Business Relationship Specialty Start Date End Date Priscila Hartman MD [address] [place] [address] PCP - General 11/25/22
--- OUTSIDE RECORDS SUMMARY | 2024-06-08 15:53 | XMS_ITS | Patient Health Record ---
Author Organization [facility] Address [address] [place] [address] Care Team Providers Care Nursing Unit Manager Name Role Phone Devan THOMAS, Priscila Primary Care Provider Thom Gianes Unavailable [phone] Reason For Referral No Information Plan Of Treatment No Information Insurance Providers Payer Name Payer Address Payer Phone Subscriber Number Group Number Insured Name Patient Relationship to Insured Coverage Start Date Coverage End Date [facility] [address] [address] [place], [place] [id number] RAMIRO JAMES Self - patient is the insured
--- OUTSIDE RECORDS SUMMARY | 2024-06-08 15:53 | XMS_ITS ---
Author Organization [facility] Address [address] [place] [address] Care Team Providers Care Crystal Gazer Name Role Phone Devan THOMAS, Priscila Hawkins Primary Care Provider Un available Garry Hassan Unavailable [phone] Julia Cook Unavailable [phone] REASON FOR VISIT No Paperwork Encounters Encounter Location Date Provider Diagnosis [facility] [address] [place] [address] 06/26/2023 Julia Cook Plan Of Treatment No Information Progress Notes * Derick FIELDS WDOB:1960 (64 yo M)Acc No.[id number]:06/26/2023 Progress Notes Patient:?Derick FIELDS Provider:?Julia Cook DPM :1960???Age:63 Y???Sex:Male Osmin e:06/26/2023 Address:[address], [address] , [place], [place] Pcp:Mikki Philip Subjective: * Chief Complaints: * [...] Provider:?Julia Cook DPM Date:?02/2024 Generated for Rachel agiuar/Radha/Sonya on:?06/08/2024 03:52 PM EDT
== END 2024-06-08 14:23 | disposition home or self-care (01) ==
LOC: HO.HMCC 13:22
PROVIDERS: PCP Internal Medicine; Visit Provider Internal Medicine
DX: Z23 Encounter for immunization (principal)

== ENCOUNTER → 2024-06-08 13:21 | Outpatient (BNVA) | payer OTHER, SELFPAY | PROVIDERS: PCP Internal Medicine; Visit Provider Internal Medicine | DX: Z00.01 Encounter for general adult medical examination with abnormal findings (principal); Z23 Encounter for immunization; E11.9 Type 2 diabetes mellitus without complications; M79.673 Pain in unspecified foot; J98.4 Other disorders of lung; D68.51 Activated protein C resistance; N52.9 Male erectile dysfunction, unspecified; E66.9 Obesity, unspecified; Z68.37 Body mass index [BMI] 37.0-37.9, adult; I10 Essential (primary) hypertension; L20.82 Flexural eczema; E78.5 Hyperlipidemia, unspecified; Z79.01 Long term (current) use of anticoagulants; Z79.899 Other long term (current) drug therapy | CPT/HCPCS: 90471; 90677; 96127 ==

== ENCOUNTER 2024-08-01 08:00 | Outpatient (AMB) | payer OTHER, SELFPAY ==
--- OUTSIDE RECORDS SUMMARY | 2024-08-01 08:04 | XMS_ITS ---
Author Organization [facility] Address [address] [place] [address] Care Team Providers Care [facility] Name Role Phone Devan THOMAS, Priscila Hawkins Primary Care Provider Un available Garry Hassan Unavailable [phone] Julia Cook Unavailable [phone] Allergies Allergen (clinical drug ingredient) Drug/Non Drug [...] W/U Status Risk Notes Problem Plantar wart (05539763) Plantar wart (B07.0) Active confirmed Vital Signs Height 6 ft in 08/25/2023 Weight 260 lbs 08/25/2023 BMI 35.26 kg/m2 08/25/2023 Encounters Encounter Location Date Provider Diagnosis [facility] [address] [address] 08/25/2023 Julia Joyce Tinea pedis of both [...] Pt defers any other forms of tx (54608) Debride Nail 6-10 Nail debridement Nail debridem ent performed extensively to reduce/remove overall nail length, girth, thickness, subungual debris, and necrotic tissue, by manual and electrical means through the use of a nail nipper and/or dremel, to more viable healthy nail plate or bed tissue 1-5. Silver nitrate used for any petechial bleeding as necessary. Patient chooses, no pharmaceutical tx (71550) Progress Notes * Derick FIELDS WDOB:1960 (63 yo M)Acc No.[id number]:08/25/2023 Progress Notes Patient:?Derick Fields Provider:?Julia Cook DPM :1960???Age:63 Y???Sex:Male Osmin e:08/25/2023 Address: [address], [address] , [facility] Pcp:Mikki Philip Subjective: * Chief Complaints: * [...] ?no Exercise. ?Marital status: single. 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 * Medications:?TakingBetametha sone eliquis Lisinopril 0.5 mg [...] as necessary. Patient chooses, no pharmaceutical tx (10551).?Wart Treatment:?Procedure?Verrucae were debrided to pin-point bleeding margins with sterile 15 surgical blade, silver nitrate chemocautery applied, recomm. immune-boosting meds such as zinc, recomm. follow up with topical chemosurgical agents, Pt defers any other forms of tx (29113).? * Procedure Codes:?69866 DEBRI DE NAIL, 6 OR MORE, Modifiers: XS 91348 Wart Destruction, 1-14, Modifiers: XS * Preventive [...] Cook DPM Date:?01/2024 Generated for Rachel aguiar/Radha/Sonya on:?08/01/2024 08:04 AM EDT History and Physical Notes * HPI [...]
--- OUTSIDE RECORDS SUMMARY | 2024-08-01 08:04 | XMS_ITS | Patient Health Record ---
Author Organization [facility] Address [address] [place] [address] Care Team Providers Care Relay Shop Tester Name Role Phone Devan THOMAS, Priscila Hawkins Primary Care Provider Un available Garry Hassan Unavailable [phone] DomJulia viera Unavailable [phone] Allergies Allergen (clinical drug ingredient) Drug/Non Drug [...] W/U Status Risk Notes Problem Plantar wart (46494914) Plantar wart (B07.0) Active confirmed Problem Acquired hammer toe of left foot (2096888529120 103) Other hammer toe(s) (acquired), left foot (M20.42) Active confirmed Vital Signs Height 6 ft in 08/25/2023 Weight 260 lbs 08/25/2023 BMI 35.26 kg/m2 08/25/2023 Encounters Encounter Location Date Provider Diagnosis [facility] [address] [place] [address] 08/25/2023 Julia Cook Tinea pedis of both [...] Insured Coverage Start Date Coverage End Date [facility] [address] [place] [address] [id number] Derick Fields Self - patient is the insured Medical (General) History Medical History History ICD Code High blood pressure Measles blood clots Surgical History Surgery Date(Month/Year) Hospitalization History Reason Date(Month/Year) [facility] lung [facility] 2022 [facility]- Respiratory infection 08/01
--- OUTSIDE RECORDS SUMMARY | 2024-08-01 08:04 | XMS_ITS ---
Author Organization [facility] Address [address] [place] [address] Care Team Providers Care Nurse Special Name Role Phone Devan THOMAS, Priscila Hawkins Primary Care Provider Un available Garry Hassan Unavailable [phone] Julia Cook Unavailable [phone] REASON FOR VISIT No Paperwork Encounters Encounter Location Date Provider Diagnosis [facility] [address] [place] [address] 06/26/2023 Julia Cook Plan Of Treatment No Information Progress Notes * Derick FIELDS WDOB:1960 (64 yo M)Acc No.[id number]:06/26/2023 Progress Notes Patient:?Derick FIELDS Provider:?Julia Cook DPM :1960???Age:63 Y???Sex:Male Osmin e:06/26/2023 Address:[address], [address] , [place], [place] Pcp:Mikki Philip Subjective: * Chief Complaints: * [...] Provider:?Julia Cook DPM Date:?02/2024 Generated for Rachel aguiar/Radha/Nithyaitting on:?08/01/2024 08:04 AM EDT
--- OUTSIDE RECORDS SUMMARY | 2024-08-01 08:04 | XMS_ITS | Clinical Summary ---
Author Organization [facility] Address [address] [place] [address] Care Team Providers Care Cook Relief Name Role Phone Priscila Hartman MD Primary [...] 5 season) 2023 07/11/2020, 06/13/2020 Influenza Vaccine (Season Ended) 2024 03/21/2015 RSV Immunization Adult Patients (1 - 1-dose 75+ series) 2033 HIB [...] age to complete this topic Meningococcal B Vaccine Aged Out No l onger eligible based on patient's age to complete this topic RSV Immunization Patients Under 20 months Aged Out No longer eligible b ased on patient's age to complete this topic Varicella Vaccines Aged Out No longer eligible based on patient's age to complete this topic Care Teams Cook Relief Relationship Specialty Start Date End Date Priscila Hartman MD [address] [place] [address] PCP - General 11/25/22
--- OUTSIDE RECORDS SUMMARY | 2024-08-01 08:04 | XMS_ITS | Clinical Summary ---
Author Organization [facility] Address [address] [place] [address] Care Team Providers Care Oxygen Furnace Operator Name Role Phone Priscila Hartman MD Primary Care Provider [phone] Allergies Active Allergy Reactions Criticality Noted Date [...] age to complete this topic Care Teams Oxygen Furnace Operator Relationship Specialty Start Date End Date Priscila Hartman MD [address] [place] [address] RADHA SALINAS [address] PCP - General Internal Medicine 11/25/22
--- OUTSIDE RECORDS SUMMARY | 2024-08-01 08:04 | XMS_ITS ---
Author Organization [facility] Address [address] [place] [address] Care Team Providers Care Processor Helper Name Role Phone Devan THOMAS, Priscila Hawkins Primary Care Provider Un available Garry Hassan Unavailable [phone] REASON FOR VISIT [facility] Entered Encounters Encounter Location Date Provider Diagnosis [facility] [address] [place] [address] 07/21/2023 Garry Hassan Plan Of Treatment No Information Progress Notes * Derick FIELDS WDOB:1960 (63 yo M)Acc No.[id number]:07/21/2023 Patient:?Derick Fields :1960???Age:63 Y???Sex:Male Address:[address], [address] , [place], [address] * true * Date:? Generated for Printi ng/Faxing/eTransmitting on:?08/01/2024 08:03 AM EDT
--- OUTSIDE RECORDS SUMMARY | 2024-08-01 08:04 | XMS_ITS | Patient Health Record ---
Author Organization [facility] Address [address] [place] [address] Care Team Providers Care Automation Machine Builder Name Role Phone Devan THOMAS, Priscila Primary Care Provider Thom Gaines Unavailable [phone] Reason For Referral No Information Plan Of Treatment Next Appt Details Provider Name:Thom Ko , 09/28/2024 04:20:00 PM, [address], [address], [place], [address], Insurance Providers Payer Name Payer Address Payer Phone Subscriber Number Group Number Insured Name Patient Relationship to Insured Coverage Start Date Coverage End Date [facility] [address] [place] [phone] [id number] RAMIRO JAMES Self - patient is the insured
--- NOTE | 2024-08-01 08:06 | AM.OFFWIN_ITS ---
Intake Vital Signs 08/01/24 08:10 Weight 272 lb BP 122/80 Blood Pressure Location Lt brachial Position Sitting Pulse 77 Pulse Source Pulse Oximeter Pulse Oximetry (%) 99 Oxygen Delivery Method Room Air Intake Visit Reasons: EP severe back pain Intake Note: Patient here for severe back pain that started Thursday morning. No known injuries. Patient Tobacco Use Status: Never used Tobacco Allergies oxycodone Allergy (Verified 08/01/24 08:17) Itching Sulfa (Sulfonamide Antibiotics) Allergy (Verified 08/01/24 08:17) Itching Do you need a note to return to daycare/school/sports/work: Yes HPI HPI Comments History of Present Illness Details History of Present Illness - The patient is a 64-year-old male with a past med hx of HTN, T2DM, DVT on eliquis, HLD presenting with acute dull, aching back pain that began 3 days ago, following physical work requiring significant movement. The pain worsened and was accompanied by severe spasms localized to the lower back. The pain's inten sity has prompted the patient to apply a heating pad and use ibuprofen with limited relief. Additionally, the patient experiences exacerbation of his back pain upon coughing due to recent household illness. Notably, there have been episodes of left leg cramping without distinct radicular pain, suggesting possible lumbar involvement. There is no report of any recent significant back injury. No loss of control of bladder or bowels or saddle parastehsias. Physical Exam General: Cooperative, healthy appearing, comfortable, no acute distress and well developed Orientation: Patient oriented x3 Limitations: No limitations Head: Normal to inspection Ears: Hearing grossly normal bilaterally Nose: Normal External nose present Face and sinus: Normal facial exam Eyes: Appearance normal, both eyes and all related structures Neck: Normal visual inspection and Yes full ROM Respiratory: Normal respiratory effort and able to speak in complete sentences. 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 Cognitive needs: No Hearing needs: No Vision needs: Yes Review of Systems Const All systems reviewed & are unremarkable except as noted in HPI and below Physical Exam Vital Signs: Last Vital Signs Pulse 77 08/01/24 08:10 BP 122/80 08/01/24 08:10 Pulse Ox 99 08/01/24 08:10 Oxygen Delivery Method Room Air 08/01/24 08:10 Assessment & Plan Assessment & Plan (1) Spasm of muscle of lower back: Code(s): M62.830 - Muscle spasm of back Plan: The patient's acute back pain and associated muscle spasms are managed with a prescribed prednisone taper aimed at reducing inflammation and facilitating symptom resolution within an eight-day regimen. Cyclobenzaprine is provided to help alleviate muscle spasms, with instructions to use according to tolerance and avoid daytime drowsiness. The management plan considers the possibility of lumbar radiculopathy without confirming sciatica, based on symptom presentation. Continuation of Eliquis is critical given the patient's history of DVT, ensuring comprehensive attention to his medication adherence. Patient was informed and verbally consented to the use of an ambient scribe for clinic note documentation during this visit. (2) Acute low back pain with right-sided sciatica: Code(s): M54.41 - Lumbago with sciatica, right side Qualifiers: Back pain laterality: right Qualified Code(s): M54.41 - Lumbago with sciatica, right side Plan: as above Medications: New cyclobenzaprine 10 mg (2 x 5 mg) PO Q8H PRN 20 tabs 0RF Muscle Spasm prednisone take 4 tablets on days 1-2, take 3 tablets on days 3-4, take 2 tablets on days 5-6, take 1 tablet on days 7-8. 10 mg PO DIRECTED 20 tabs 0RF Coding Level of Care Code Est Pt Level 3 (50852) Diagnoses Spasm of muscle of lower back M62.830 Acute right-sided low back pain with right-sided sciatica M54.41 Back pain laterality: right
[2024-08-01 08:10] VITALS: BP 122/80; PULSE 77; O2SAT 99
== END 2024-08-01 08:37 | disposition home or self-care (01) ==
PROVIDERS: PCP Internal Medicine; Visit Provider Physician Assistant
DX: M62.830 Muscle spasm of back (principal); M54.41 Lumbago with sciatica, right side

== ENCOUNTER → 2024-08-01 08:00 | Outpatient (BNVA) | payer OTHER, SELFPAY | PROVIDERS: PCP Internal Medicine; Visit Provider Physician Assistant ==

== ENCOUNTER 2024-08-19 08:52 | Outpatient (AMB) | payer OTHER, SELFPAY ==
--- OUTSIDE RECORDS SUMMARY | 2024-08-19 09:08 | XMS_ITS | Patient Health Record ---
Author Organization [facility] Address [address] [place] [address] Care Team Providers Care Extractor Operator Helper Name Role Phone Devan THOMAS, Priscila Hawkins Primary Care Provider Un available Garry Hassan Unavailable [phone] DomJulia viera Unavailable [phone] Allergies Allergen (clinical drug ingredient) Drug/Non Drug [...] W/U Status Risk Notes Problem Plantar wart (47760852) Plantar wart (B07.0) Active confirmed Problem Other hammer toe(s) (acquired), left foot (M20.42) Active confirmed Vital Signs Height 6 ft in 08/25/2023 Weight 260 lbs 08/25/2023 BMI 35.26 kg/m2 08/25/2023 Encounters Encounter Location Date Provider Diagnosis [facility] [address] [place] [address] 08/25/2023 Julia Cook Tinea pedis of both [...] Insured Coverage Start Date Coverage End Date [facility] [address] [place] [id number] Derick Fields Self - patient is the insured Medical (General) History Medical History History ICD Code High blood pressure Measles blood clots Surgical History Surgery Date(Month/Year) Hospitalization History Reason Date(Month/[facility]) [facility] Blood [facility] lung clot 20[facility] Respiratory infection 08/01
[2024-08-19 09:20] VITALS: BP 112/60; PULSE 75; RESP 17; TEMP 36.9; O2SAT 95; BMI 36.6
--- NOTE | 2024-08-19 09:20 | MHC.OFFWIV ---
Intake Vital Signs 08/19/24 09:20 Height 6 ft Weight 270 lb BMI 36.6 BP 112/60 Blood Pressure Location Lt brachial Position Sitting Respiration 17 Pulse 75 Pulse Source Pulse Oximeter Temp 98.5 F Temp Source Oral Pulse Oximetry (%) 95 Oxygen Delivery Method Room Air Intake Visit Reasons: EP Respiratory, cough, congestion Intake Note: Pt is here today c/o chest congestion and cough Patient Tobacco Use Status: Never used Tobacco Allergies oxycodone Allergy (Verified 08/19/24 09:23) Itching Sulfa (Sulfonamide Antibiotics) Allergy (Verified 08/19/24 09:23) Itching HPI HPI Comments History of Present Illness Details Patient is a 64yo M with hx of obesity, COPD, 5 Liden/DVT, DM2 who presents to office with cold symptoms Onset x a few days + cough, congestion and post nasal drip + colored phlegm In the past he has used Prednisone which temporarily helps bur states antibiotics help more Has been using albuterol without relief He feels SOB with cough + phlegm which is mostly clear Denies fever or chills No measurer machine Has co-worker sick as well He also states > 1 week of body itching and small red bumps/rash. 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 Cognitive needs: No Hearing needs: No Vision needs: Yes Review of Systems Const Denies chills, Reports fatigue and Denies fever(s) Eyes Denies change in vision ENT Denies otalgia, Reports nasal congestion, Denies sinus pressure and Denies sore throat Card Denies chest pain and Reports dyspnea Resp Reports change in phlegm color, Reports chest congestion, Reports cough and Reports dyspnea Skin/Breast Reports rash (itching heat rash) Endo Reports fatigue Physical Exam Vital Signs: Last Vital Signs Temp 98.5 F 08/19/24 09:20 Pulse 75 08/19/24 09:20 Resp 17 08/19/24 09:20 BP 112/60 08/19/24 09:20 Pulse Ox 95 08/19/24 09:20 Oxygen Delivery Method Room Air 08/19/24 09:20 BMI result Body Mass Index 36.6 General: Non-toxic, NAD. Speaking full sentences. Skin: Warm dry throughout. Pt has small erythematous macules noted to anterior chest/abdomen with majority under pectoral creases. Non-tender. No vesicles or petechiae. Eye: EOMI HENT: Airway patent. Uvula midline. No pharyngeal erythema or edema. No NUCLEAR PLANT EQUIPMENT OPERATOR. Bilateral canals clear. TM non-erythematous, non-bulging. No TM perforation or hemotympanum noted. Respiratory: + wheeze R upper lobe. + rhomchi bilateral bases. No tachypnea. Cardiac: RRR. No murmur MSK: Full ROM extremities. Neurology:lert. No aphasia or facial droop. Gait without abnormality Psych: Good mood and affect Assessment & Plan Assessment & Plan (1) Bronchitis: Code(s): J40 - Bronchitis, not specified as acute or chronic Plan: Patient seen and evaluated. Doxy to cover rhonchi; discussed photosensitivity No extensive wheezing or resp distress; will hold predisone at this time F.U with PCP Patient gave verbal understanding and had no additional questions or concerns at time of discharge All questions answered (2) Heat rash: Code(s): L74.0 - Miliaria rubra Plan: Pt seen and evaluated Discussed avoid heat exposure and hot showers Cold showers and dry area Avoid scratching Coding Level of Care Code Est Pt Level 3 (24150) Diagnoses Bronchitis J40 Heat rash L74.0
== END 2024-08-19 09:53 | disposition home or self-care (01) ==
PROVIDERS: PCP Internal Medicine; Visit Provider Physician Assistant
DX: J40 Bronchitis, not specified as acute or chronic (principal); L74.0 Miliaria rubra

== ENCOUNTER → 2024-08-19 08:52 | Outpatient (BNVA) | payer OTHER, SELFPAY | PROVIDERS: PCP Internal Medicine; Visit Provider Physician Assistant | DX: Z13.89 Encounter for screening for other disorder (principal) ==

== ENCOUNTER 2024-09-09 09:13 | Outpatient (AMB) | payer OTHER, SELFPAY ==
[2024-09-09 09:18] VITALS: BP 112/60; PULSE 76; TEMP 37.2; O2SAT 94; BMI 36.8
--- NOTE | 2024-09-09 09:18 | AM.OFFWIN_ITS ---
Intake Vital Signs 09/09/24 09:18 Height 6 ft Weight 271 lb BMI 36.8 BP 112/60 Blood Pressure Location Rt brachial Position Sitting Pulse 76 Pulse Source Pulse Oximeter Temp 98.9 F Temp Source Oral Pulse Oximetry (%) 94 Oxygen Delivery Method Room Air Intake Visit Reasons: EP URI, wheezing Intake Note: pt presents for continuous chest congestion, coughing and wheezing. Patient Tobacco Use Status: Never used Tobacco Allergies oxycodone Allergy (Verified 09/09/24 09:24) Itching Sulfa (Sulfonamide Antibiotics) Allergy (Verified 09/09/24 09:24) Itching Do you need a note to return to daycare/school/sports/work: No HPI HPI Comments History of Present Illness Details History - The patient is a 64-year-old male pres enting with persistent respiratory symptoms and COPD management. - Reports ongoing cough, sneezing, and w heezing with phlegm production, partially resolved with doxycycline but recurring. - COPD history increased PRN albuterol u se recently; Symbicort used regularly. - Previous prednisone and azithromycin t reatments provided short-term relief, however, patient is expressing frustration with the fact that he gets so many recurrent respiratory infections and he is wondering why. 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 - Pulmonary function tests indicate mode rate restrictive ventilatory defect, likely due to obesity. - patient does live with his 5-year-old and 8-month-old grandchildren who get a typical amount of respiratory infections. Physical Exam General: Cooperative, healthy appearing, comfortable and no acute distress Orientation/consciousness: Patient oriented x3 Limitations: No limitations Head: Normal to inspection Ears: Hearing grossly normal bilaterally, external ears normal and TM's normal bilaterally Nose: Normal external nose present, Normal nares present and No nasal discharge present Face and sinus: Normal facial exam and Yes sinuses nontender Mouth: Normal oral and palatal mucosa present and moist mucous membranes Throat: Yes tonsils normal, Yes uvula midline. Posterior oropharynx erythema, no exudates Eyes: Appearance normal, both eyes and all related structures Neck: Normal visual inspection, full ROM Respiratory: Right upper lobe has slight rhonchorous sounds, no wheezing. Normal respiratory effort, able to speak in complete sentences, Actively coughing, no respiratory distress, not tachypneic, no tripod positioning and no use of accessory muscles. Cardiovascular: Regular rate and rhythm. Normal S1 and S2 Skin: No rashes or lesions noted Neuro: Patient oriented x3 Extremities: Normal to inspection and Yes no clubbing, cyanosis or edema [facility] Medical History (Updated 08/19/24 @ 09:58 by Ирина Guzman PA-C) Pain of plantar aspect of heel Restrictive airway disease Urticaria due to heat COPD with acute exacerbation Type 2 diabetes mellitus without complication, with no history of insulin use History of pulmonary embolus (PE) History of DVT (deep vein thrombosis) Pulmonary nodule 1 cm or greater in diameter Current use of fpc anticoagulation Factor 5 Leiden mutation, heterozygous Erectile dysfunction Vitamin D deficiency Colon cancer screening Obesity (BMI 30-39.9) Varicose veins of both lower extremities Eczema Dyslipidemia Essential hypertension Surgical History Hx of colonoscopy S/P anal fissurectomy Family History Father Diabetes mellitus Coronary artery disease Mother Dementia Sister No problems noted. 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 Cognitive needs: No Hearing needs: No Vision needs: Yes Review of Systems Const All systems reviewed & are unremarkable except as noted in HPI and below Physical Exam Vital Signs: Last Vital Signs Temp 98.9 F 09/09/24 09:18 Pulse 76 09/09/24 09:18 BP 112/60 09/09/24 09:18 Pulse Ox 94 09/09/24 09:18 Oxygen Delivery Method Room Air 09/09/24 09:18 BMI result Body Mass Index 36.8 Assessment & Plan Assessment & Plan (1) Lower respiratory infection (e.g., bronchitis, pneumonia, pneumonitis, pulmonitis): Code(s): J22 - Unspecified acute lower respiratory infection Plan: - VSS, pt well appearing and PE remarkable for RUL slight rhonchi. - Performed an expanded viral panel to identify viral or bacterial cause of symptoms. - Provide supportive care and seyc-lvw-hylsida medications if viral. - Prescribe Augmentin and possibly a Z-Jose if viral panel is negative. - Will message his PCP for possible referral to Pulm, or follow up to discuss his recurrent COPD exac and respiratory infections. - Advise weight loss to improve respiratory function as per PFTs - we did decide to send a small prednisone burst to the pharmacy but I did ed ucate patient on holding off on picking it up for a few days in case he does feel better, I do not hear any wheezing on auscultation but he tells me he does hear himself wheezing quite often. He is slightly short of breath but he does have an albuterol inhaler which gives him some relief so I recommended he continue this. Patient was informed and verbally consented to the use of an ambient scribe for clinic note documentation during this visit Orders: Orders Resp Pathogen Panel - [facility] Today J06.9 - Acute upper respiratory infection, unspecified Medications: New prednisone 20 mg PO QAM 5 tabs 0RF Coding Level of Care Code Est Pt Level 4 (64830) Diagnoses Lower respiratory infection (e.g., bronchitis, pneumonia, pneumonitis, pulmonitis) J22
--- OUTSIDE RECORDS SUMMARY | 2024-09-09 09:33 | XMS_ITS | Patient Health Record ---
Author Organization [facility] Address [address] [place] [address] Care Team Providers Care Manager Federal Name Role Phone Devan THOMAS, Priscila Hawkins Primary Care Provider Un available Garry Hassan Unavailable [phone] Allergies Allergen (clinical drug ingredient) Drug/Non Drug [...] 0.77 % 1 application Externally Twice a day; Duration: 30 days Active Social History Tobacco Use: [...] W/U Status Risk Notes Problem Plantar wart (74239288) Plantar wart (B07.0) Active confirmed Problem Acquired hammer toe of left foot ([id number] 103) Other hammer toe(s) (acquired), left foot (M20.42) Active confirmed Plan Of Treatment Pending Test Test Name Order Date X ray : Foot, left 3V 05/25/2019 Insurance Providers Payer Name Payer Address Payer Phone Subscriber Number Group Number Insured Name Patient Relationship to Insured Coverage Start Date Coverage End Date [facility] [address] [facility] [place] [id number] Derick Fields Self - patient is the insured Medical (General) History Medical History History ICD Code High blood pressure Measles blood clots Surgical History Surgery Date(Month/Year) Hospitalization History Reason Date(Month/[facility]) [facility] lung clot 2022 [facility] Respiratory infection 08/01
== END 2024-09-09 11:15 | disposition home or self-care (01) ==
PROVIDERS: PCP Internal Medicine; Visit Provider Physician Assistant
DX: J22 Unspecified acute lower respiratory infection (principal)

== ENCOUNTER 2024-09-09 09:13 | Outpatient (REF) | payer OTHER, SELFPAY ==
[2024-09-11 12:42] LABS: Adenovirus PCR Not Detected (Not Detect.); Bordetella parapertussis PCR Not Detected (Not Detect.); Bordetella pertussis PCR Not Detected (Not Detect.); Chlamydia pneumoniae PCR Not Detected (Not Detect.); Coronavirus 229E PCR Not Detected (Not Detect.); Coronavirus HKU1 PCR Not Detected (Not Detect.); Coronavirus NL63 PCR Not Detected (Not Detect.); Coronavirus OC43 PCR Not Detected (Not Detect.); Human metapneumovirus PCR Not Detected (Not Detect.); Influenza A H1 PCR Not Detected (Not Detect.); Influenza A H1-2009 PCR Not Detected (Not Detect.); Influenza A H3 PCR Not Detected (Not Detect.); Influenza A PCR Not Detected (Not Detect.); Influenza B PCR Not Detected (Not Detect.); Mycoplasma pneumoniae PCR Not Detected (Not Detect.); Parainfluenza 1 PCR Not Detected (Not Detect.); Parainfluenza 2 PCR Not Detected (Not Detect.); Parainfluenza 3 PCR Not Detected (Not Detect.); Parainfluenza 4 PCR Not Detected (Not Detect.); RSV PCR Not Detected (Not Detect.); Rhino/Enterovirus PCR Not Detected (Not Detect.); SARS-CoV-2 PCR Not Detected (Not Detect.)
== END 2024-09-09 09:14 | disposition home or self-care (01) ==
LOC: HO.LAB 09:13
PROVIDERS: PCP Internal Medicine; Visit Provider Physician Assistant
DX: J06.9 Acute upper respiratory infection, unspecified (principal); R06.2 Wheezing; J44.9 Chronic obstructive pulmonary disease, unspecified
CPT/HCPCS: 87633

== ENCOUNTER 2024-09-22 15:40 | Outpatient (AMB) | payer OTHER, SELFPAY ==
--- OUTSIDE RECORDS SUMMARY | 2024-09-22 15:43 | XMS_ITS | Clinical Summary ---
Author Organization [facility] Address [address] [place] [address] Care Team Providers Care Data Architect Name Role Phone Priscila Hartman MD Primary Care Provider [phone] Allergies Active Allergy Reactions Criticality Noted Date [...] 73 03/30/2023 2:35 PM EST Temperature 36.9 C (98.4 F) 03/30/2023 2:35 PM EST Respiratory Rate - - Oxygen Saturation 96% [...] 1 - PCV) 2023 Influenza Vaccine (#1) 2024 03/21/2015 RSV Adult > 60+ Yrs or Pregn ant (1 - 1-dose 75+ series) 2033 Hepatitis B Vaccines Aged Out No long er eligible based on patient's age to complete this topic RSV Ped < 20 months Aged Out No longe r eligible based on patient's age to complete this topic Care Teams Data Architect Relationship Specialty Start Date End Date Priscila Hartman MD [address] [place] [address] [place] [id number] PCP - General Internal Medicine 11/25/22
--- OUTSIDE RECORDS SUMMARY | 2024-09-22 15:43 | XMS_ITS | Patient Health Record ---
Author Organization [facility] Address [address] [place] [address] Care Team Providers Care Sas Developer Analyst Name Role Phone Devan THOMAS, Priscila Primary Care Provider Thom Gaines Unavailable [phone] Reason For Referral No Information Plan Of Treatment Next Appt Details Provider Name:Thom Ko , 09/28/2024 04:20:00 PM, [address], [address], [place], [address], Insurance Providers Payer Name Payer Address Payer Phone Subscriber Number Group Number Insured Name Patient Relationship to Insured Coverage Start Date Coverage End Date [facility] [address] [place] [phone] [id number] RAMIRO JAMES Self - patient is the insured
--- OUTSIDE RECORDS SUMMARY | 2024-09-22 15:43 | XMS_ITS | Patient Health Record ---
Author Organization [facility] Address [address] [place] [address] Care Team Providers Care Head Grower Name Role Phone Devan THOMAS, Priscila Hawkins Primary Care Provider Un available Garry Hassan Unavailable [phone] Allergies Allergen (clinical drug ingredient) Drug/Non Drug [...] W/U Status Risk Notes Problem Plantar wart ([id number]) Plantar wart (B07.0) Active confirmed Problem Other hammer toe(s) (acquired), left foot (M20.42) Active confirmed Plan Of Treatment Pending Test Test Name Order Date X ray : Foot, left 3V 05/25/2019 Insurance Providers Payer Name Payer Address Payer Phone Subscriber Number Group Number Insured Name Patient Relationship to Insured Coverage Start Date Coverage End Date [facility] [address] [place] [address] [id number] Derick Fields Self - patient is the insured Medical (General) History Medical History History ICD Code High blood pressure Measles blood clots Surgical History Surgery Date(Month/Year) Hospitalization History Reason Date(Month/Year) [facility]- Blood clot, lung clot 2022 [facility] Respiratory infection 08/01
--- OUTSIDE RECORDS SUMMARY | 2024-09-22 15:43 | XMS_ITS | Clinical Summary ---
Author Organization [facility] Address [address] [place] [address] Care Team Providers Care Lot Worker Name Role Phone Priscila Hartman MD Primary [...] season) 2023 07/11/2020, 06/13/2020 Influenza Vaccine (#1) 2024 03/21/2015 RSV Immunization Adult Patients (1 [...] age to complete this topic Care Teams Lot Worker Relationship Specialty Start Date End Date Priscila Hartman MD [address] [place] [address] PCP - General 11/25/22
[2024-09-22 15:51] VITALS: BP 124/80; PULSE 65; RESP 16; TEMP 36.8; O2SAT 95; BMI 36.3
--- NOTE | 2024-09-22 15:51 | MHC.PC.OV ---
Vital Signs 09/22/24 15:51 Height 6 ft Weight 268 lb BMI 36.3 BP 124/80 Blood Pressure Location Lt brachial Position Sitting Respiration 16 Pulse 65 Pulse Source Pulse Oximeter Temp 98.2 F Temp Source Oral Pulse Oximetry (%) 95 Oxygen Delivery Method Room Air Intake Visit Reasons: f/u walkin Intake Note: Pt is here today f/u walkin re-current URI's Allergies oxycodone Allergy (Verified 09/26/24 01:46) Itching Sulfa (Sulfonamide Antibiotics) Allergy (Verified 09/26/24 01:46) Itching Medication List - Last Reconciled 09/26/24 by Priscila Hartman MD albuterol sulfate 90 mcg/actuation (Ventolin HFA) 1 inh inhalation QID PRN apixaban (Eliquis) 5 mg PO BID betamethasone dipropionate 0.05% 1 appl topical DAILY PRN 10 days hydrochlorothiazide 12.5 mg PO DAILY lisinopril 5 mg PO DAILY rosuvastatin 5 mg PO Q2D 90 days sildenafil 100 mg PO DAILY PRN Symbicort 160-4.5 mcg/actuation (budesonide-formoterol) 2 puffs inhalation Q12H NS Zepbound (tirzepatide (weight loss)) 2.5 mg (0.5 mL) subcut QWEEK NS Tobacco use date assessed: 06/08/24 Fall risk assessment: No Falls in past year Last assessed Fall Risk: 09/22/24 Dental Screening Dental Screen Date: 09/22/24 Did you have a dental visit in the last 12 months?: Yes Did you have a dental problem in the last 6 months where you did not have access to dental care?: No Was dental information given to patient?: Patient has dentist HPI f/u walkin HPI Details 64-year-old male with history of obesity, recurrent respiratory infections, history of DVT on Eliquis, with factor 5 Leiden mutation, hypertension, dyslipidemia , diabetes mellitus, and restrictive airway disease as seen on recent PFT done, here today for follow-up. He has had several respiratory infections this past few months. He states that he is feeling better after several antibiotic and steroid treatment. Currently taking Symbicort and uses albuterol inhaler as needed for episodes of bronchospasm and wheezing. He has been advised to lose weight, but has been unsuccessful even with changing his diet and walking for exercise. [facility] Medical History Pain of plantar aspect of heel Restrictive airway disease Urticaria due to heat COPD with acute exacerbation Type 2 diabetes mellitus without complication, with no history of insulin use History of pulmonary embolus (PE) History of DVT (deep vein thrombosis) Pulmonary nodule 1 cm or greater in diameter Current use of senior care anticoagulation Factor 5 Leiden mutation, heterozygous Erectile dysfunction Vitamin D deficiency Colon cancer screening Obesity (BMI 30-39.9) Varicose veins of both lower extremities Eczema Dyslipidemia Essential hypertension Surgical History Hx of colonoscopy S/P anal fissurectomy Family History Father Diabetes mellitus Coronary artery disease Mother Dementia Sister No problems noted. 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 Cognitive needs: No Hearing needs: No Vision needs: Yes Questionnaire Thrive Questionnaire Date Thrive assessed: 03/17/24 I am a: Patient What is your living situation today?: I have a steady place to live Within the past 12 months, did the food you bought not last and you didn't have the money to get more?: I choose not to answer this question Within the past 12 months, did you worry whether your food would run out before you got money to buy more?: I choose not to answer this question Do you have trouble paying for medicines?: I choose not to answer this question Do you have trouble getting transportation to medical appointments?: I choose not to answer this question Do you have trouble paying your heating and electricity bill?: I choose not to answer this question Do you have trouble taking care of your child, family member or friend?: I choose not to answer this question Do you have trouble with day-to-day activities such as bathing, preparing meals, shopping, managing finances, etc.?: I choose not to answer this question Are you currently unemployed and looking for a job?: I choose not to answer this question Are you interested in more education?: I choose not to answer this question Please select the resources that you would like help with: Paying for medicine Currently or been in a relationship where the following occur: No concerns reported THRIVE Score: 0 JESSICA-7 AMB Questionnaire JESSICA-7 Date JESSICA - 7 assessed: 06/08/24 Source: Developed by Drs. Thom Foreman, Melody Ardon, Aamir Blevins and colleagues, with an educational aruna from [employer]. Review of Systems Const All systems reviewed & are unremarkable except as noted in HPI and below Physical exam (Primary Care) Vital Signs: Last Vital Signs Temp 98.2 F 09/22/24 15:51 Pulse 65 09/22/24 15:51 Resp 16 09/22/24 15:51 BP 124/80 09/22/24 15:51 Pulse Ox 95 09/22/24 15:51 Oxygen Delivery Method Room Air 09/22/24 15:51 BMI result Body Mass Index 36.3 Tobacco/Smoking Status: Tobacco use Status Tobacco use date assessed 06/08/24 09/22/24 15:58 Patient Tobacco Use Status Never used Tobacco 09/22/24 15:58 e-Cigarette/Vaping Use Never Used 09/22/24 15:58 Thrive Assessment: Date of Thrive Assessment Date Thrive assessed 03/17/24 09/22/24 15:58 Currently or been in a relationship where the following occur: No concerns reported Const General: comfortable and no acute distress Nutritional Appearance: obese Orientation/consciousness: patient oriented x3 HENMT Face and sinus: Yes face symmetric Mouth: Normal oral and palatal mucosa present and moist mucous membranes Eyes General: appearance normal, both eyes and all related structures Neck Neck: Yes full ROM, Yes no lymphadenopathy and Yes supple Chest Chest palpation & inspection: normal inspection of the chest and normal palpation of entire chest wall Resp Effort & Inspection: normal respiratory effort and able to speak in complete sentences Cardio Rate: regular rate Rhythm: regular rhythm Heart sounds: S1 normal heart sound present and S2 normal heart sound present Peripheral pulses: Peripheral pulses 2+ throughout GI Inspection: Yes Abdominal panniculus present and Yes obesity Palpation (GI): Soft to palpation, nontender, no guarding and no masses Auscultation: normal bowel sounds General: Yes no CVA tenderness Male General Exam: Yes normal external exam Back/Spine/Pelvis Back: no CVA tenderness and No back tenderness Cervical Spine: cervical ROM normal Thoracic/Lumbar Spine: thoracic and lumbar spine normal to inspection and thoraco-lumbar ROM normal Skin General skin exam: no rashes or lesions noted Neuro General: patient oriented x3, gait normal, moves all extremities, Normal light touch and pain sensation and no focal motor deficits Extrem Other: Varicose veins noted in both lower extremities, right more than the left read ankle swelling noted bilaterally again right more than the left General: No no joint enlargement, Yes no calf tenderness and Yes normal gait Psych Appearance: grossly normal and well kempt Mental Status: mental status grossly normal Speech and movement: Normal speech and movement present Affect: normal affect Coding Level of Care Code Est Pt Level 4 (22966) Diagnoses Type 2 diabetes mellitus without complication, with no history of insulin use E11.9 Restrictive airway disease J98.4 Essential hypertension I10 Dyslipidemia E78.5 Factor 5 Leiden mutation, heterozygous D68.51 Obesity (BMI 30-39.9) E66.9 Assessment & Plan Assessment & Plan (1) Type 2 diabetes mellitus without complication, with no history of insulin use: Code(s): E11.9 - Type 2 diabetes mellitus without complications Category: Medical Plan: Last hemoglobin A1c in March 2024 was 6.3%. Will start him on Zepbound 2.5 mg injected once a week. Patient instructed on proper use of the medication, and possible side effects that he might encounter which may include abdominal bloating, nausea, constipation or diarrhea. Advised not to take alcohol when taking the medication. (2) Restrictive airway disease: Comment: PFT 05/2024 - Moderate restrictive ventilatory defect with no bronchodilator response. Decreased expiratory reserve volume suggests extrathoracic restriction likely secondary to abdominal obesity. Code(s): J98.4 - Other disorders of lung Category: Medical Plan: Patient needs to lose weight, started on Zepbound, to take as directed and combined this with healthy eating habits in her regular exercise. (3) Essential hypertension: Code(s): I10 - Essential (primary) hypertension Category: Medical Plan: Blood pressure at goal of less than 130/80. Continue with current medication. Reinforced importance of following a low sodium diet, getting regular exercise, and lowering stress levels. (4) Dyslipidemia: Code(s): E78.5 - Hyperlipidemia, unspecified Category: Medical Plan: Continue rosuvastatin 5 mg 1 tablet every other day (5) Factor 5 Leiden mutation, heterozygous: Comment: Seen by [facility], Dr. 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 Medications: New Zepbound (tirzepatide (weight loss)) for 4 weeks 2.5 mg (0.5 mL) subcut QWEEK 2 mL 2RF NS E11.9 - Type 2 diabetes mellitus without complications, E78.5 - Hyperlipidemia, unspecified, I10 - Essential (primary) hypertension Refilled albuterol sulfate 90 mcg/actuation (Ventolin HFA) 1 inh inhalation QID PRN 8.5 grams 2RF shortness of breath or wheezing Symbicort 160-4.5 mcg/actuation (budesonide-formoterol) 2 puffs inhalation Q12H 10.2 grams 3RF NS J44.1 - Chronic obstructive pulmonary disease with (acute) exacerbation, R05.9 - Cough, unspecified, R06.2 - Wheezing betamethasone dipropionate 0.05% 1 appl topical DAILY PRN 45 grams 0RF skin irritation 10 days L30.9 - Dermatitis, unspecified
== END 2024-09-22 16:40 | disposition home or self-care (01) ==
LOC: HO.HMCC 15:41
PROVIDERS: PCP Internal Medicine; Visit Provider Internal Medicine
DX: E11.69 Type 2 diabetes mellitus with other specified complication (principal); E66.9 Obesity, unspecified; Z68.36 Body mass index [BMI] 36.0-36.9, adult; J98.4 Other disorders of lung; I10 Essential (primary) hypertension; E78.5 Hyperlipidemia, unspecified; D68.51 Activated protein C resistance

== ENCOUNTER 2024-10-20 12:10 | Outpatient (AMB) | payer OTHER, SELFPAY ==
[2024-10-20 12:24] VITALS: BP 112/68; PULSE 75; TEMP 37; O2SAT 94; BMI 36.3
--- NOTE | 2024-10-20 12:24 | AM.OFFWIN_ITS ---
Intake Vital Signs 10/20/24 12:24 Height 6 ft Weight 268 lb BMI 36.3 BP 112/68 Blood Pressure Location Lt brachial Position Sitting Pulse 75 Pulse Source Pulse Oximeter Temp 98.6 F Temp Source Oral Pulse Oximetry (%) 94 Intake Visit Reasons: EP Eczema on fingers Intake Note: presents with fissures, pain, swelling and redness to bilateral hands/fingers; RT > LT. Also c/o productive cough and wheezing- denies sore throat or sinus involvement Patient Tobacco Use Status: Never used Tobacco Allergies oxycodone Allergy (Verified 10/20/24 12:25) Itching Sulfa (Sulfonamide Antibiotics) Allergy (Verified 10/20/24 12:25) Itching Do you need a note to return to daycare/school/sports/work: No HPI HPI Comments History of Present Illness Details History of Present Illness - The patient is a 64-year-old male pres enting with eczema and nasal congestion. - Eczema - The patient reports a significant exac erbation of eczema on his fingers, which has not been this severe in quite some time. - The eczema has been present for over a week, causing cracking and bleeding, making it difficult to work. - The patient uses betamethasone ointmen t, which is not providing relief. 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 - He has had this all his life. - He denies bleeding, fever, chills, chrissie hes, or lesions. Nasal congestion - The patient experiences coughing at ni ght and sometimes during the day, without ear pain or sore throat. - He has a history of allergies, particu larly in the spring, and takes Zyrtec for management. - The patient has COPD and uses albutero l and another unspecified inhaler. - He reports persistent shortness of uche ath and wheezing. - He has a dry cough and congestion. - He denies CHEATHAM, CP, SOB, abd pain, n/v/d , sore throat, or rashes. Physical Exam General: Cooperative, healthy appearing, comfortable, no acute distress and well developed Orientation: Patient oriented x3 Limitations: No limitations Head: Normal to inspection Ears: Hearing grossly normal bilaterally Nose: Normal external nose present Face and sinus: Normal facial exam. No TTP of the sinuses. Eyes: Appearance normal, both eyes and all related structures Neck: Normal visual inspection and Yes full ROM. No lymphadenopathy noted. Respiratory: Wheezing noted. Cardiovascular: Regular rate and rhythm. Normal S1 and S2 GI: Normal to inspection. Soft to palpation and nontender Skin: Eczema noted on fingers, cracking and bleeding Neuro: Patient oriented x3 Extremities: Normal to inspection Patient was informed and verbally consented to the use of an ambient scribe for clinic note documentation during this visit. 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 Cognitive needs: No Hearing needs: No Vision needs: Yes Review of Systems Const All systems reviewed & are unremarkable except as noted in HPI and below Physical Exam Vital Signs: Last Vital Signs Temp 98.6 F 10/20/24 12:24 Pulse 75 10/20/24 12:24 BP 112/68 10/20/24 12:24 Pulse Ox 94 10/20/24 12:24 BMI result Body Mass Index 36.3 Assessment & Plan Assessment & Plan (1) Eczema: Code(s): L30.9 - Dermatitis, unspecified Qualifiers: Eczema type: flexural Qualified Code(s): L20.82 - Flexural eczema Plan: Plan - triamcinolone cream to the area - prednisone burst for 5 days - eucerin cream to the hands BID (2) Nasal congestion: Code(s): R09.81 - Nasal congestion Plan Most likely URI vs allergic rhinitis vs sinusitis vs viral illness Plan - tylenol or motrin as needed - tessalon perles as needed for cough - prednisone burst for 5 days - continue with cetirizine - follow up with PCP Medications: New triamcinolone acetonide 0.5% do not exceed use greater than 14 days 1 appl topical BID 15 grams 0RF benzonatate 100 mg PO bid-tid PRN 21 caps 0RF Cough 7 days prednisone 40 mg (2 x 20 mg) PO DAILY 10 tabs 0RF 5 days Coding Level of Care Code Est Pt Level 4 (66113) Diagnoses Flexural eczema L20.82 Eczema type: flexural Nasal congestion R09.81
--- OUTSIDE RECORDS SUMMARY | 2024-10-20 12:32 | XMS_ITS | Clinical Summary ---
Author Organization [employer] [facility] Address [address] [place] [address] Care Team Providers Care Associate Dean Of Students Name Role Phone Priscila Hartman MD Primary Care Provider Encounters Date Type Department Care Team Description 09/30/2024 Telephone [facility] Hematology Oncology [address] [place] [address] Carina Mendes MD from Last 3 Months Social History Tobacco Use Types Packs/Day Years [...] Panel) 02/15/2022 Colorectal Cancer Screening: Colonoscopy 02/15/2022 Hepatitis C Screening 02/15/2022 Social Influencers of Health Screening 02/15/2022 Falls Risk Assessment 2023 COVID-19 Vaccine (2023-2 5 season) 2023 07/11/2020, 06/13/2020 Depression Screening 03/16/2024 Influenza Vaccine (#1) 2024 03/21/2015 RSV Immunization [...] age to complete this topic Care Teams Associate Dean Of Students Relationship Specialty Start Date End Date Priscila Hartman MD [address] [place] [address] PCP - General 11/25/22
--- OUTSIDE RECORDS SUMMARY | 2024-10-20 12:32 | XMS_ITS | Clinical Summary ---
Author Organization [facility] Address [address] [place] [address] Care Team Providers Care Medical Staff Credentialing Coordinator Name Role Phone Priscila Hartman MD Primary Care Provider [phone] Allergies Active Allergy Reactions Criticality Noted Date [...] age to complete this topic Care Teams Medical Staff Credentialing Coordinator Relationship Specialty Start Date End Date Priscila Hartman MD [address] [place] [address] RADHA SALINAS [address] PCP - General Internal Medicine 11/25/22
--- OUTSIDE RECORDS SUMMARY | 2024-10-20 12:32 | XMS_ITS | Patient Health Record ---
Author Organization [facility] Address [address] [place] [address] Care Team Providers Care Acid Tender Name Role Phone Devan THOMAS, Priscila Primary Care Provider Thom Gaines [phone] Allergies Allergen (clinical drug ingredient) Drug/Non Drug Allergy documented on EMR Reaction Allergy Type Onset Date Status Substance with sulfonamide structure and antibacterial mechanism of action (substance) Sulfa Antibiotics Unknown Drug Allergy Active oxycodone OxyCONTIN Unknown Drug Allergy Active Reason For Referral No Information Medications Medication SIG (Take, Route, Frequency, Duration) Notes Start Date End Date Status Eliquis 5 MG as directed Orally twice a day 09/28/2024 Active Betamethasone Dipropionate 0.05 % 1 application Externally daily 09/28/2024 Active Symbicort 80-4.5 MCG/ACT 2 puffs Inhalat ion twice a day 09/28/2024 Active Albuterol Sulfate 108 (90 Base) MCG/ACT 1 puff as needed Inhalation every 4 hrs Active Lisinopril 5 MG 2 tablets Orally Onc e a day for 30 day(s) 09/28/2024 Active hydroCHLOROthiazide 12.5 MG 1 capsule in the morning Orally Once a day for 30 day(s) 09/28/2024 Active Rosuvastatin Calcium 5 MG 1 tablet Orall y Once a day for 30 day(s) 09/28/2024 Active Social History Tobacco Use: Social History Observation Description Date Details (start date - stop date) Never Smoker NA - NA Tobacco Control (Standard) Question Answer Notes Tobacco use: Nonsmoker AUDIT-C (Standard) Question Answer Notes Did you have a drink contain ing alcohol in the past year? Yes How often did you have a dri nk containing alcohol in the past year? Monthly or less (1 point) How many drinks did you have on a typical day when you were drinking in the past year? 1 or 2 drinks (0 point) How often did you have six o r more drinks on one occasion in the past year? Never (0 point) Points 1 Interpretation Negative Section Notes: Nonsmoker; no sig alcohol Problems Problem Type SNOMED Code ICD Code Onset Dates Problem Status W/U Status Risk Notes Problem Colon cancer screening (Z12.11) Active confirmed Problem Long-term current use of anticoagulant ([id number]) residential (current) use of anticoagulants (Z79.01) Active confirmed Problem Preprocedural examination ([id number]) Preprocedural examination (Z01.818) Active confirmed Vital Signs Temperature 97.7 degrees Fahrenheit 09/28/2024 Blood pressure diastolic 01 mm Hg 09/28/2024 Height 72 in 09/28/2024 Blood pressure systolic 001 mm Hg 09/28/2024 Weight 272.4 lbs 09/28/2024 BMI 36.94 kg/m2 09/28/2024 Procedures Procedure Date Ordered Date Performed Result Body Sit e COLONOSCOPY 09/28/2024 N/A Encounters Encounter Location Date Provider Diagnosis [facility] [address] [place] [address] 09/28/2024 Thom Ko Colon cancer screeni ng Z12.11 ; residential (current) use of anticoagulants Z79.01 and Preprocedural examination Z01.818 Assessments Encounter Date Diagnosis (ICD Code) Assessment Notes Treatment Notes Treatment Clinical Notes Section Notes 09/28/2024 Colon cancer screening (ICD-10 - Z12.11) Overall, Ramiro appears to be doing well from a GI standpoint and is not having any new or worrisome GI symptoms. Given the reported negative colonoscopy in 2009, I did recommend a follow-up colonoscopy for further screening purposes. We did review the rationale for this in regard to colon cancer prevention. Full consent has been obtained from him for this, including risks of bleeding and perforation. The procedure will be done with monitored anesthesia care. He has been given the below instructions regarding adjustments of his medications before the procedure including that of the Eliquis, hydrochlorothia zide, and the reported GLP-1 medication. Ramiro was comfortable with this plan. Thank you again for allowing me to participate in Ramiro's care. I shall continue to keep you advised of his progress. 09/28/2024 residential (current) use of anticoagulants (ICD-10 - Z79.01) Overall, Ramiro appears to be doing well from a GI standpoint and is not having any new or worrisome GI symptoms. Given the reported negative colonoscopy in 2009, I did recommend a follow-up colonoscopy for further screening purposes. We did review the rationale for this in regard to colon cancer prevention. Full consent has been obtained from him for this, including risks of bleeding and perforation. The procedure will be done with monitored anesthesia care. He has been given the below instructions regarding adjustments of his medications before the procedure including that of the Eliquis, hydrochlorothia zide, and the reported GLP-1 medication. Ramiro was comfortable with this plan. Thank you again for allowing me to participate in Ramiro's care. I shall continue to keep you advised of his progress. 09/28/2024 Preprocedural examination (ICD-10 - Z01.818) Overall, Ramiro appears to be doing well from a GI standpoint and is not having any new or worrisome GI symptoms. Given the reported negative colonoscopy in 2009, I did recommend a follow-up colonoscopy for further screening purposes. We did review the rationale for this in regard to colon cancer prevention. Full consent has been obtained from him for this, including risks of bleeding and perforation. The procedure will be done with monitored anesthesia care. He has been given the below instructions regarding adjustments of his medications before the procedure including that of the Eliquis, hydrochlorothia zide, and the reported GLP-1 medication. Ramiro was comfortable with this plan. Thank you again for allowing me to participate in Ramiro's care. I shall continue to keep you advised of his progress. Plan Of Treatment Pending Test Test Name Order Date COLONOSCOPY 09/28/2024 Next Appt Details Provider Name:Thom Mikki Ko , 12/30/2024 11:10:00 AM, [address] [facility] , [place], [place], [id number], Insurance Providers Payer Name Payer Address Payer Phone Subscriber Number Group Number Insured Name Patient Relationship to Insured Coverage Start Date Coverage End Date [facility] [address] [place] [phone] [id number] RAMIRO JAMES Self - patient is the insured Medical (General) History Medical History History ICD Code HTN Denies NV,DM,CVA,renal disease COPD Neg. screening colonoscopy in 2009 RLE DVT with PE in 2023- on Eliquis- -has seen Dr. Hyman at [facility] Hematology Hyperlipidemia Starting a GLP-1 in 09/2024 for weight lo ss Surgical History Surgery Date(Month/Year) Rectal fissures/Hemorrhoids
--- OUTSIDE RECORDS SUMMARY | 2024-10-20 12:32 | XMS_ITS | Patient Health Record ---
Author Organization [facility] Address [address] [place] [address] Care Team Providers Care Curtain Stretcher Assembler Name Role Phone Devan THOMAS, Priscila Hawkins Primary Care Provider Un available Garry Hassan Unavailable [phone] Allergies Allergen (clinical drug ingredient) Drug/Non Drug [...] W/U Status Risk Notes Problem Plantar wart (60016971) Plantar wart (B07.0) Active confirmed Problem Acquired hammer toe of left foot (5267556901829 103) Other hammer toe(s) (acquired), left foot (M20.42) Active confirmed Plan Of Treatment Pending Test Test Name Order Date X ray : Foot, left 3V 05/25/2019 Insurance Providers Payer Name Payer Address Payer Phone Subscriber Number Group Number Insured Name Patient Relationship to Insured Coverage Start Date Coverage End Date [facility] [address] [facility] RADHA molina [id number] Derick Fields Self - patient is the insured Medical (General) History Medical History History ICD Code High blood pressure Measles blood clots Surgical History Surgery Date(Month/Year) Hospitalization History Reason Date(Month/Year) [facility] Blood clot, lung clot 2022 [facility]- Respiratory infection 08/01
== END 2024-10-20 13:22 | disposition home or self-care (01) ==
PROVIDERS: PCP Internal Medicine; Visit Provider Physician Assistant Medical
DX: L20.82 Flexural eczema (principal); R09.81 Nasal congestion

== ENCOUNTER 2024-11-04 07:20 | Outpatient (REF) | payer OTHER, SELFPAY ==
--- OUTSIDE RECORDS SUMMARY | 2024-11-04 07:22 | XMS_ITS | Patient Health Record ---
Author Organization [facility] Address [address] [place] [address] Care Team Providers Care Print Binding And Finishing Worker Name Role Phone Devan THOMAS, Priscila Primary Care Provider Thom Gaines [phone] Allergies Allergen (clinical drug ingredient) Drug/Non Drug [...] confirmed Problem Long-term current use of anticoagulant (328240743) jail (current) use of anticoagulants (Z79.01) Active confirmed Problem Preprocedural examination (994813367322313) Preprocedural examination (Z01.818) Active confirmed Vital Signs Temperature 97.7 degrees Fahrenheit 09/28/2024 Blood pressure diastolic 01 mm Hg 09/28/2024 Height 72 in 09/28/2024 Blood pressure systolic 001 mm Hg 09/28/2024 Weight 272.4 lbs 09/28/2024 BMI 36.94 kg/m2 09/28/2024 Procedures Procedure Date Ordered Date Performed Result Body Sit e COLONOSCOPY 09/28/2024 N/A Encounters Encounter Location Date Provider Diagnosis [facility] [address] [place] [address] 09/28/2024 Thom Ko Colon cancer screeni ng Z12.11 ; jail (current) use of anticoagulants Z79.01 and Preprocedural [...] keep you advised of his progress. 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 screening colonoscopy in 2009 RLE DVT with PE in 2023- on Eliquis- -has seen Dr. Hyman at [facility] Hematology Hyperlipidemia Starting a GLP-1 in 09/2024 for weight lo ss Surgical History Surgery Date(Month/Year) Rectal fissures/Hemorrhoids
--- OUTSIDE RECORDS SUMMARY | 2024-11-04 07:22 | XMS_ITS | Clinical Summary ---
Author Organization [facility] Address [address] [place] [address] Care Team Providers Care Harvesting Contractor Name Role Phone Priscila Hartman MD Primary Care Provider [phone] Allergies Active Allergy Reactions Criticality Noted Date [...] age to complete this topic Care Teams Harvesting Contractor Relationship Specialty Start Date End Date Priscila Hartman MD [address] [place] [address] RADHA SALINAS [address] PCP - General Internal Medicine 11/25/22
--- OUTSIDE RECORDS SUMMARY | 2024-11-04 07:22 | XMS_ITS | Clinical Summary ---
Author Organization [facility] [employer] [facility] Address [address] [place] [address] Care Team Providers Care Help Desk Team Leader Name Role Phone Priscila Hartman MD Primary Care Provider Encounters Date Type Department Care Team Description 09/30/2024 Telephone [facility] Hematology Oncology [address] [place] [address] Carina Mendes MD from Last [...] age to complete this topic Care Teams Help Desk Team Leader Relationship Specialty Start Date End Date Priscila Hartman MD [address] [place] [address] PCP - General 11/25/22
[2024-11-04 10:31] LABS: Hemoglobin A1C 176.6377 umol/L; Total Hemoglobin (HGBA1C) 3735.8341 umol/L
[2024-11-04 11:28] LABS: Alanine Aminotransferase 23 U/L (0-40); Anion Gap 13 (12-20); Aspartate Amino Transferase 28 U/L (5-37); Blood Urea Nitrogen 14 mg/dL (9-16); Calcium 9.0 mg/dL (8.4-10.2); Carbon Dioxide 31 mmol/L (22-29); Chloride 101 mmol/L (96-108); Cholesterol 152 mg/dL (<200); Estimated Glomerular Filt Rate > 60; HDL Cholesterol 46 mg/dL (>40); Potassium 3.8 mmol/L (3.3-5.1); Sodium 141 mmol/L (135-145); Triglycerides 91 mg/dL (<150)
== END 2024-11-04 07:21 | disposition home or self-care (01) ==
LOC: HO.HMGCLDS 07:20
PROVIDERS: PCP Internal Medicine; Visit Provider Internal Medicine
DX: E11.9 Type 2 diabetes mellitus without complications (principal); E66.9 Obesity, unspecified; E78.5 Hyperlipidemia, unspecified; I10 Essential (primary) hypertension
CPT/HCPCS: 36415; 80048; 80061; 83036; 84450; 84460

== ENCOUNTER 2024-11-17 09:29 | Outpatient (AMB) | payer OTHER, SELFPAY ==
--- OUTSIDE RECORDS SUMMARY | 2023-06-26 06:30 | XMS_ITS ---
Author Organization [facility] Address [address] [place] [address] Care Team Providers Care Airport Utility Worker Name Role Phone Devan THOMAS, Priscila Hawkins Primary Care Provider Un available Garry Hassan Unavailable [phone] Julia Cook Unavailable [phone] REASON FOR VISIT No Paperwork Encounters Encounter Location Date Provider Diagnosis [facility] [address] [place] [address] 06/26/2023 Julia Coko Plan Of Treatment No Information Progress Notes * Derick FIELDS WDOB:1960 (64 yo M)Acc No.[id number]:06/26/2023 Progress Notes Patient: Derick BARTLETT Provider: Srini Cook DPM :1960 A ge:63 Y S ex:Male Date:06/26/2023 Address:[address], [address] , [place], [place] Pcp:Mikki Philip Subjective: * Chief Complaints: * 1 . No Paperwork. * Medical History: Objective: * Vitals: Assessment: Plan: * Treatment: * Images: * The named appointment provid er may or may not be the originator of this progress note, and it is not deemed complete until electronically signed by the appointment provider. Sign off status: Pending * Provider: Srini Cook DPM Date: 0 06/26/2023 Generated for Printi ng/Fakatiag/eTransmitting on: 0 11/17/2024 10:13 AM EDT
[2024-11-17 09:33] VITALS: BP 112/70; PULSE 75; RESP 18; TEMP 36.8; O2SAT 97; BMI 36.3
--- NOTE | 2024-11-17 09:33 | MHC.OFFWIV ---
Intake Vital Signs 11/17/24 09:33 Height 6 ft Weight 268 lb BMI 36.3 BP 112/70 Blood Pressure Location Lt brachial Position Sitting Respiration 18 Pulse 75 Pulse Source Pulse Oximeter Temp 98.2 F Temp Source Oral Pulse Oximetry (%) 97 Oxygen Delivery Method Room Air Intake Visit Reasons: EP Congestion Intake Note: Pt is here today for a walk in visit. Pt c/o congestion and cough. Patient Tobacco Use Status: Never used Tobacco Allergies oxycodone Allergy (Verified 11/17/24 09:35) Itching Sulfa (Sulfonamide Antibiotics) Allergy (Verified 11/17/24 09:35) Itching HPI HPI Comments History of Present Illness Details 64 y/o Male patient who presents to the walk in clinic with c/o dry cough and chest congestion. He reports persistent shortness of breath and wheezing. H/o COPD and uses albuterol and Symbicort. He is scheduled to see Pulmonology in December. Today denies Fevers, chills, nausea or vomiting. Pt was seen here back in 10/21 for URI and cough. He was given Cough medicine and Prednisone. Reports that Prednisone Helped for awhile but symptoms returned sooner after he completed Steroids. He reported to me that he did test negative for COVID 19 then - but no Serology report seen. 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 Cognitive needs: No Hearing needs: No Vision needs: Yes Review of Systems Const All systems reviewed & are unremarkable except as noted in HPI and below Physical Exam Vital Signs: Last Vital Signs Temp 98.2 F 11/17/24 09:33 Pulse 75 11/17/24 09:33 Resp 18 11/17/24 09:33 BP 112/70 11/17/24 09:33 Pulse Ox 97 11/17/24 09:33 Oxygen Delivery Method Room Air 11/17/24 09:33 BMI result Body Mass Index 36.3 Const General: no acute distress; No comfortable Nutritional Appearance: obese morbidly obese Orientation/consciousness: patient oriented x3 HEENT Head: Yes normocephalic Ears: external ears normal and TM abnormal obstructed by cerumen General nose exam: Nasal discharge present Mouth: moist mucous membranes Throat: Yes uvula midline Resp Effort & Inspection: normal respiratory effort, able to speak in complete sentences, no audible wheezes and no cough Auscultation: no crackles, no rales, no rhonchi and wheezes scattered wheezes Cardio Heart sounds: S1 normal heart sound present and S2 normal heart sound present Neuro General: patient oriented x3 Assessment & Plan Assessment & Plan (1) Cough: Code(s): R05.9 - Cough, unspecified Plan: Ordered Chest Xray. Will order Abx if positive for Pneumonia Advised to use Home remedies. F/u with Pulmonology as scheduled. Orders: Orders XR chest 2V Today R05.9 - Cough, unspecified Coding Level of Care Code Est Pt Level 4 (20455) Diagnoses Cough R05.9 Time Spent (min) 20
--- OUTSIDE RECORDS SUMMARY | 2024-11-17 10:14 | XMS_ITS | Patient Health Record ---
Author Organization [facility] Address [address] [place] [address] Care Team Providers Care Neonatal Intensive Care Nurse Name Role Phone Devan THOMAS, Priscila Primary Care Provider Thom Gaines [phone] Allergies Allergen (clinical drug ingredient) Drug/Non Drug [...] Status Risk Notes Problem Colon cancer screening (128956175) Colon cancer screening (Z12.11) Active confirmed Problem Long-term current use of anticoagulant (993371297) parts counterman (current) use of anticoagulants (Z79.01) Active confirmed Problem Preprocedural examination (495074969591765) Preprocedural examination (Z01.818) Active confirmed Vital Signs Temperature 97.7 degrees Fahrenheit 09/28/2024 Blood pressure diastolic 01 mm Hg 09/28/2024 Height 72 in 09/28/2024 Blood pressure systolic 001 mm Hg 09/28/2024 Weight 272.4 lbs 09/28/2024 BMI 36.94 kg/m2 09/28/2024 Procedures Procedure Date Ordered Date Performed Result Body Sit e COLONOSCOPY 09/28/2024 N/A Encounters Encounter Location Date Provider Diagnosis [facility] [address] [place] [address] 09/28/2024 Thom Ko Colon cancer screeni ng Z12.11 ; long-term (current) use of anticoagulants Z79.01 and Preprocedural [...] keep you advised of his progress. 09/28/2024 long-term (current) use of anticoagulants (ICD-10 - Z79.01) [...] COLONOSCOPY 09/28/2024 Next Appt Details Provider Name:Thom Ko , 12/30/2024 11:10:00 AM, [address] [facility] , [place], [place], [phone], Insurance Providers Payer Name Payer Address Payer Phone Subscriber Number Group Number Insured Name Patient Relationship to Insured Coverage Start Date Coverage End Date [facility] [address] [place] [address] [id number] RAMIRO JAMES Self - patient is the insured Medical (General) History Medical History History ICD Code HTN Denies [place],DM,CVA,renal disease COPD Neg. screening colonoscopy in 2009 RLE DVT with PE in 2023- on Eliquis- -has seen Dr. Hyman at [facility] Hematology Hyperlipidemia Starting a GLP-1 in 09/2024 for weight lo ss Surgical History Surgery Date(Month/Year) Rectal fissures/Hemorrhoids
--- OUTSIDE RECORDS SUMMARY | 2024-11-17 10:14 | XMS_ITS | Clinical Summary ---
Author Organization [facility] Address [address] [place] [address] Care Team Providers Care Educational Assistant Name Role Phone Priscila Hartman MD Primary Care Provider [phone] Allergies Active Allergy Reactions Criticality Noted Date [...] age to complete this topic Care Teams Educational Assistant Relationship Specialty Start Date End Date Priscila Hartman MD [address] [place] [address] RADHA SALINAS [address] PCP - General Internal Medicine 11/25/22
--- OUTSIDE RECORDS SUMMARY | 2024-11-17 10:14 | XMS_ITS | Patient Health Record ---
Author Organization [facility] Address [address] [place] [address] Care Team Providers Care Educational Technologist Name Role Phone Devan THOMAS, Priscila Hawkins Primary Care Provider Un available Garry Hassan Unavailable [phone] Allergies Allergen (clinical drug ingredient) Drug/Non Drug [...] W/U Status Risk Notes Problem Plantar wart (07620208) Plantar wart (B07.0) Active confirmed Problem Acquired hammer toe of left foot (5533857953778 103) Other hammer toe(s) (acquired), left foot (M20.42) Active confirmed Plan Of Treatment Pending Test Test Name Order Date X ray : Foot, left 3V 05/25/2019 Insurance Providers Payer Name Payer Address Payer Phone Subscriber Number Group Number Insured Name Patient Relationship to Insured Coverage Start Date Coverage End Date [facility] [address] [facility] RADHA molina [id number] Derick Fields Self - patient is the insured Medical (General) History Medical History History ICD Code High blood pressure Measles blood clots Surgical History Surgery Date(Month/Year) Hospitalization History Reason Date(Month/[facility]) [facility] Res[facility] infection 08/01
--- OUTSIDE RECORDS SUMMARY | 2024-11-17 10:14 | XMS_ITS | Clinical Summary ---
Author Organization [facility] Address [address] [place] [address] Care Team Providers Care Program Host Name Role Phone Priscila Hartman MD Primary Care Provider Encounters Date Type Department Care Team Description 09/30/2024 Telephone [facility] Hematology Oncology [address] [place] [address] Carina Mendes MD from Last [...] Health Screening 02/15/2022 Falls Risk Assessment 2023 Depression Screening 03/16/2024 COVID-19 Vaccine (2024-2 6 season) 2024 07/11/2020, 06/13/2020 Influenza Vaccine (#1) 2024 03/21/2015 [...] age to complete this topic Care Teams Program Host Relationship Specialty Start Date End Date Priscila Hartman MD [address] [facility] [place] [address] PCP - General 11/25/22
== END 2024-11-17 10:17 | disposition home or self-care (01) ==
PROVIDERS: PCP Internal Medicine; Visit Provider Nurse Practitioner Family
DX: R05.9 Cough, unspecified (principal)

== ENCOUNTER 2024-11-17 09:29 | Outpatient (REF) | payer SELFPAY ==
--- NOTE | ~2024-11-17 | XR_ITS ---
EXAMINATION: XR CHEST CLINICAL INFORMATION: R05.9 - Cough, unspecified COMPARISON: April 01, 2024. TECHNIQUE: 2 views of the chest were obtained. FINDINGS: No hyperinflation. Poor inspiration. Mild prominence of the interstitial markings. No consolidation, pleural effusion or pneumothorax. Cardiomediastinal silhouette size is normal. Multilevel thoracic and upper lumbar spondylosis. S-shaped curvature of the thoracolumbar spine which could be positional. XR/XR chest 2V IMPRESSION: No acute airspace disease. Multilevel spondylosis and scoliosis, thoracic spine. Electronically signed by: Les Bocanegra MD 11/17/2024 10:24 AM EDT
== END 2024-11-17 09:30 | disposition home or self-care (01) ==
LOC: HO.HMGCX 09:29
PROVIDERS: PCP Internal Medicine; Visit Provider Nurse Practitioner Family
DX: R05.9 Cough, unspecified (principal)
CPT/HCPCS: 71046

== ENCOUNTER → 2024-11-17 10:14 | Outpatient (BNV) | payer OTHER, SELFPAY | PROVIDERS: PCP Internal Medicine; Visit Provider Radiology Diagnostic Radiology | DX: R05.9 Cough, unspecified (principal) | CPT/HCPCS: 71046 ==

== ENCOUNTER 2024-12-20 09:13 | Outpatient (AMB) | payer MEDICARE, MEDICAID, SELFPAY ==
--- OUTSIDE RECORDS SUMMARY | 2023-06-26 06:30 | XMS_ITS ---
Author Organization [facility] Address [address] [place] [address] Care Team Providers Care Vision Therapist Name Role Phone Devan THOMAS, Priscila Hawkins Primary Care Provider Un available Garry Allen Unavailable [phone] Julia Cook Unavailable [phone] REASON FOR VISIT No Paperwork Encounters Encounter Location Date Provider Diagnosis [facility] [address] [place] [address] 06/26/2023 Julia Cook Plan Of Treatment No Information Progress Notes * Derick FIELDS WDOB:1960 (64 yo M)Acc No.[id number]:06/26/2023 Progress Notes Patient: Derick BARTLETT Provider: Srini Cook DPM :1960 A ge:63 Y S ex:Male Date:06/26/2023 Address:[address], [address] , [place], [place] Pcp:Mikki Philip Subjective: * Chief Complaints: * [...] Cook DPM Date: 0 06/26/2023 Generated for Rachel aguiar/Radha/eTransmitting on: 1 10:13 AM EDT
[2024-12-20 09:25] VITALS: BP 116/80; PULSE 68; RESP 16; TEMP 36.9; O2SAT 96; BMI 35.9
--- NOTE | 2024-12-20 09:25 | AM.OFFWIN_ITS ---
Intake Vital Signs 12/20/24 09:25 Height 6 ft Weight 265 lb BMI 35.9 BP 116/80 Blood Pressure Location Rt brachial Position Sitting Respiration 16 Pulse 68 Pulse Source Pulse Oximeter Temp 98.5 F Temp Source Oral Pulse Oximetry (%) 96 Oxygen Delivery Method Room Air Intake Visit Reasons: EP weezing, chest tightning, SOB Intake Note: Pt is here today c/o wheezing chest tightning SOB COPD is acting up Patient Tobacco Use Status: Never used Tobacco Allergies oxycodone Allergy (Verified 12/20/24 09:27) Itching Sulfa (Sulfonamide Antibiotics) Allergy (Verified 12/20/24 09:27) Itching HPI HPI Comments History of Present Illness Details History - The patient is a 64-year-old male pres enting with exacerbation of chronic obstructive pulmonary disease and symptoms suggestive of a viral upper respiratory infection. - The patient reports wheezing and cough ing, which worsens when lying down, requiring him to sit up at night to sleep. - The cough is productive with yellowish -clear sputum, and there is no associated fever. - The patient feels this is an exacerbat ion of his COPD rather than a new illness. - The patient has a history of COPD and uses Symbicort and albuterol inhalers, which were last refilled on September 22. - The patient has not been using his Sym bicort inhaler regularly bc his insurance would not cover it. He has new insurance, [employer] which should cover it so he is planning on picking it up today, which may have contributed to the exacerbation. - The patient reports a viral illness ci rculating in his household, which may have exacerbated his symptoms. Physical Exam General: Cooperative, healthy appearing, comfortable and no acute distress Orientation/consciousness: Patient oriented x3 Limitations: No limitations Head: Normal to inspection Ears: Hearing grossly normal bilaterally, external ears normal and TM's normal bilaterally Nose: Normal external nose present, Normal nares present and No nasal discharge present Face and sinus: Normal facial exam and Yes sinuses nontender Mouth: Normal oral and palatal mucosa present and moist mucous membranes Throat: Yes tonsils normal, Yes uvula midline. Posterior oropharynx erythema, no exudates Eyes: Appearance normal, both eyes and all related structures Neck: Normal visual inspection, full ROM Respiratory: Wheezing on inhalation and exhalation, no rales or rhonchi. Normal respiratory effort, able to speak in complete sentences, Actively coughing, no respiratory distress, not tachypneic, no tripod positioning and no use of accessory muscles Cardiovascular: Regular rate and rhythm. Normal S1 and S2 Skin: No rashes or lesions noted Neuro: Patient oriented x3 Extremities: Normal to inspection and Yes no clubbing, cyanosis or edema Review of Systems - Respiratory: Reports wheezing and prod uctive cough with yellowish-clear sputum. Denies fever. - General: Denies fever. 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 - VSS, pt well appearing and PE remarkable for insp/exp wheezes. - Initiate a prednisone burst of 40 mg daily for five days to reduce inflammation and improve lung function. - traffic warehouse supervisor your Symbicort inhaler, two puffs every 12 hours, to manage COPD symptoms. - Encourage the use of albuterol inhaler as needed for acute symptom relief. - Recommend symptomatic treatment with decongestants to alleviate nasal congestion. - Advise monitoring symptoms and return if they worsen or do not improve. Medications: New prednisone 40 mg (2 x 20 mg) PO QAM 10 tabs 0RF Refilled sildenafil administer 30 minutes to 4 hours before activity 100 mg PO DAILY PRN 10 tabs 2RF sexual activity Coding Level of Care Code Est Pt Level 3 (90013) Diagnoses COPD with acute exacerbation J44.1
--- OUTSIDE RECORDS SUMMARY | 2024-12-20 10:13 | XMS_ITS | Clinical Summary ---
Author Organization [facility] Address [address] [place] [address] Care Team Providers Care Nursing Coordinator Name Role Phone Priscila Hartman MD Primary Care Provider [phone] Allergies Active Allergy Reactions Criticality Noted Date [...] age to complete this topic Care Teams Nursing Coordinator Relationship Specialty Start Date End Date Priscila Hartman MD [address] [place] [address] RADHA SALINAS [address] PCP - General Internal Medicine 11/25/22
--- OUTSIDE RECORDS SUMMARY | 2024-12-20 10:13 | XMS_ITS | Clinical Summary ---
Author Organization [facility] Address [address] [place] [address] Care Team Providers Care Policy Advisor Name Role Phone Priscila Hartman MD Primary Care Provider Encounters Date Type Department Care Team Description 09/30/2024 Telephone [facility] Hematology Oncology [address] [place] [address] Carina Mendes MD from Last [...] Health Maintenance Due Date Last Done Comments Colorectal Cancer Screening: Colonoscopy 1960 DTaP,Tdap,and Td Vaccines (1 - Tdap) 1977 Pneumococcal Vaccine: 50+ Years (1 of 1 - PCV) 2008 Zoster Vaccines (1 of 2) 2008 Abdominal Aortic Aneurysm (AAA) Screen 02/15/2022 Cholesterol Screening (Lipid Panel) 02/15/2022 Hepatitis C Screening 02/15/2022 Social Influencers of Health Screening 02/15/2022 Falls Risk Assessment 2023 Depression Screening 03/16/2024 COVID-19 Vaccine ( - 2024-2 6 season) 2024 07/11/2020, 06/13/2020 Influenza Vaccine [...] age to complete this topic Care Teams Policy Advisor Relationship Specialty Start Date End Date Priscila Hartman MD [address] [facility] [place] [address] PCP - General 11/25/22
--- OUTSIDE RECORDS SUMMARY | 2024-12-20 10:13 | XMS_ITS | Patient Health Record ---
Author Organization [facility] Address [address] [place] [address] Care Team Providers Care Engineering And Scientific Programmer Name Role Phone Devan THOMAS, Priscila Hawkins Primary Care Provider Un available Garry Allen Unavailable [phone] Allergies Allergen (clinical drug ingredient) Drug/Non Drug [...] W/U Status Risk Notes Problem Plantar wart (71211644) Plantar wart (B07.0) Active confirmed Problem Acquired hammer toe of left foot (1972354960081 103) Other hammer toe(s) (acquired), left foot (M20.42) Active confirmed Plan Of Treatment Pending Test Test Name Order Date X ray : Foot, left 3V 05/25/2019 Insurance Providers Payer Name Payer Address Payer Phone Subscriber Number Group Number Insured Name Patient Relationship to Insured Coverage Start Date Coverage End Date [facility] [address] [facility] RADHA molina [id number] eDrick Fields Self - patient is the insured Medical (General) History Medical History History ICD Code High blood pressure Measles blood clots Surgical History Surgery Date(Month/Year) Hospitalization History Reason Date(Month/Year) [facility] Blood [facility] lung [facility] Respiratory infection 08/01
--- OUTSIDE RECORDS SUMMARY | 2024-12-20 10:13 | XMS_ITS | Patient Health Record ---
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.01) Active confirmed Problem Preprocedural examination (981478428460297) Preprocedural examination (Z01.818) Active confirmed Vital Signs Temperature 97.7 degrees Fahrenheit 09/28/2024 Blood pressure diastolic 01 mm Hg 09/28/2024 Height 72 in 09/28/2024 Blood pressure systolic 001 mm Hg 09/28/2024 Weight 272.4 lbs 09/28/2024 BMI 36.94 kg/m2 09/28/2024 Procedures Procedure Date Ordered Date Performed Result Body Sit e COLONOSCOPY 09/28/2024 N/A Encounters Encounter Location Date Provider Diagnosis [facility] [address] [place] [address] 09/28/2024 Thom Ko Colon cancer screeni ng [...] keep you advised of his progress. 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 of anticoagulants (ICD-10 - Z79.01) [...] Provider Name:Thom Ko , 12/30/2024 11:10:00 AM, [address] [place] [address] , [place], [place], [phone], Insurance Providers Payer Name Payer Address Payer Phone Subscriber Number Group Number Insured Name Patient Relationship to Insured Coverage Start Date Coverage End Date MEDICARE OF [place] [address] [place] [address] [id number] RAMIRO JAMES Self - patient is the insured [facility] [address] [place] [phone] [id number] RAMIRO JAMES Self - patient is the insured Medical (General) History Medical History History ICD Code HTN Denies [place],DM,CVA,renal disease COPD Neg. screening colonoscopy in 2009 RLE DVT with PE in 2023- on Eliquis- -has seen Dr. Hyman at [facility] Hematology Hyperlipidemia Starting a GLP-1 in 09/2024 for weight lo ss Surgical History Surgery Date(Month/Year) Rectal fissures/Hemorrhoids
== END 2024-12-20 10:16 | disposition home or self-care (01) ==
PROVIDERS: PCP Internal Medicine; Visit Provider Physician Assistant
DX: J44.1 Chronic obstructive pulmonary disease with (acute) exacerbation (principal)

== ENCOUNTER → 2024-12-20 09:13 | Outpatient (BNVA) | payer MEDICARE, MEDICAID, SELFPAY | PROVIDERS: PCP Internal Medicine; Visit Provider Physician Assistant | DX: J44.1 Chronic obstructive pulmonary disease with (acute) exacerbation (principal); Z79.899 Other long term (current) drug therapy | CPT/HCPCS: 99212 ==

== ENCOUNTER 2025-01-02 12:46 | Outpatient (AMB) | payer MEDICARE, MEDICAID, SELFPAY ==
[2025-01-02 13:08] VITALS: BP 132/80; PULSE 69; RESP 16; TEMP 37.1; O2SAT 95; BMI 37.0
--- NOTE | 2025-01-02 13:08 | A.OFFPC_ITS ---
Vital Signs 01/02/25 13:08 Height 6 ft Weight 273 lb BMI 37.0 BP 132/80 Blood Pressure Location Rt brachial Position Sitting Respiration 16 Pulse 69 Pulse Source Pulse Oximeter Temp 98.7 F Temp Source Oral Pulse Oximetry (%) 95 Oxygen Delivery Method Room Air Intake Visit Reasons: follow up Intake Note: Pt is here today follow-up walkin: wheezing, SOB and coughing: COPD acting up Crime Investigator Special Agent Required: No Allergies oxycodone Allergy (Verified 01/02/25 13:21) Itching Sulfa (Sulfonamide Antibiotics) Allergy (Verified 01/02/25 13:21) Itching Medication List - Last Reconciled 01/02/25 by Priscila Hartman MD apixaban (Eliquis) 5 mg PO BID benzonatate 100 mg PO bid-tid PRN 7 days betamethasone dipropionate 0.05% 1 appl topical DAILY PRN 10 days hydrochlorothiazide 12.5 mg PO DAILY lisinopril 5 mg PO DAILY rosuvastatin 5 mg PO Q2D 90 days sildenafil 100 mg PO DAILY PRN triamcinolone acetonide 0.5% 1 appl topical BID Tobacco use date assessed: 01/02/25 Fall risk assessment: No Falls in past year Last assessed Fall Risk: 01/02/25 Dental Screening Dental Screen Date: 01/02/25 Did you have a dental visit in the last 12 months?: No Did you have a dental problem in the last 6 months where you did not have access to dental care?: No Was dental information given to patient?: Patient has dentist HPI follow up HPI Details 64-year-old male presenting today for follow-up after recent walk-in visit where he was complaining of intermittent episodes of wheezing and coughing worse when lying supine, which has been present now for the last 2 weeks.. - The patient reports wheezing and cough ing, which worsens when lying down, requiring him to sit up at night to sleep. - The cough is productive with yellowish -clear sputum, and there is no associated fever. - he was given a 5 day course of prednis one 20 mg daily which afforded only temporary relief, using his albuterol inhaler also which affords only temporary relief of wheezing. - The patient has a history of COPD and a pulmonary function test done earlier this year showed presence of restrictive airway disease, was on Symbicort and albuterol inhalers, which were last refilled on September 22, but has completely run out. Due to problems with insurance coverage. The patient now states that he is on [employer] and will try to fill prescription sent. Patient also requesting referral to see a air support operations operator. [facility] Medical History COPD with acute exacerbation Cough Pain of plantar aspect of heel Restrictive airway disease Urticaria due to heat Type 2 diabetes mellitus without complication, with no history of insulin use History of pulmonary embolus (PE) History of DVT (deep vein thrombosis) Pulmonary nodule 1 cm or greater in diameter Current use of meterman anticoagulation Factor 5 Leiden mutation, heterozygous Erectile dysfunction Vitamin D deficiency Colon cancer screening Obesity (BMI 30-39.9) Varicose veins of both lower extremities Eczema Dyslipidemia Essential hypertension Surgical History Hx of colonoscopy S/P anal fissurectomy Family History Father Diabetes mellitus Coronary artery disease Mother Dementia Sister No problems noted. 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 Cognitive needs: No Hearing needs: No Vision needs: Yes Questionnaire Thrive Questionnaire Date Thrive assessed: 03/17/24 I am a: Patient What is your living situation today?: I have a steady place to live Within the past 12 months, did the food you bought not last and you didn't have the money to get more?: I choose not to answer this question Within the past 12 months, did you worry whether your food would run out before you got money to buy more?: I choose not to answer this question Do you have trouble paying for medicines?: I choose not to answer this question Do you have trouble getting transportation to medical appointments?: I choose not to answer this question Do you have trouble paying your heating and electricity bill?: I choose not to answer this question Do you have trouble taking care of your child, family member or friend?: I choose not to answer this question Do you have trouble with day-to-day activities such as bathing, preparing meals, shopping, managing finances, etc.?: I choose not to answer this question Are you currently unemployed and looking for a job?: I choose not to answer this question Are you interested in more education?: I choose not to answer this question Please select the resources that you would like help with: Paying for medicine Currently or been in a relationship where the following occur: No concerns reported THRIVE Score: 0 JESSICA-7 AMB Questionnaire JESSICA-7 Date JESSICA - 7 assessed: 06/08/24 Source: Developed by Drs. Thom Foreman, Melody Ardon, Aamir Blevins and colleagues, with an educational aruna from [employer]. Review of Systems Const Denies chills, Reports difficulty sleeping (Due to coughing), Denies fever(s) and Reports weight gain ENT Reports nasal congestion, Reports post nasal drip, Denies sinus pain, Reports sinus pressure and Denies sore throat Card Reports no additional complaints Resp Reports as per HPI GI Reports no additional complaints Musc Reports no additional complaints Neuro Reports no additional complaints Ceasar/Lymph Reports no additional complaints Physical exam (Primary Care) Vital Signs: Last Vital Signs Temp 98.7 F 01/02/25 13:08 Pulse 69 01/02/25 13:08 Resp 16 01/02/25 13:08 BP 132/80 01/02/25 13:08 Pulse Ox 95 01/02/25 13:08 Oxygen Delivery Method Room Air 01/02/25 13:08 BMI result Body Mass Index 37.0 Tobacco/Smoking Status: Tobacco use Status Tobacco use date assessed 01/02/25 01/02/25 13:17 Patient Tobacco Use Status Never used Tobacco 01/02/25 13:08 e-Cigarette/Vaping Use Never Used 01/02/25 13:08 Thrive Assessment: Date of Thrive Assessment Date Thrive assessed 03/17/24 01/02/25 13:08 Currently or been in a relationship where the following occur: No concerns reported Const General: no acute distress Nutritional Appearance: obese Orientation/consciousness: patient oriented x3 HENMT Face and sinus: Yes face symmetric Mouth: Normal oral and palatal mucosa present and moist mucous membranes Neck Neck: Yes full ROM, Yes no lymphadenopathy and Yes supple Resp Effort & Inspection: normal respiratory effort and able to speak in complete sentences Auscultation: rhonchi and wheezes Cardio Rate: regular rate Rhythm: regular rhythm Heart sounds: S1 normal heart sound present and S2 normal heart sound present GI Inspection: Yes Abdominal panniculus present and Yes obesity Palpation (GI): Soft to palpation, nontender, no guarding and no masses Auscultation: normal bowel sounds Neuro General: patient oriented x3, gait normal, moves all extremities, Normal light touch and pain sensation and no focal motor deficits Extrem Other: Varicose veins noted in both lower extremities, right more than the left read ankle swelling noted bilaterally again right more than the left General: No no joint enlargement, Yes no calf tenderness and Yes normal gait Psych Appearance: grossly normal and well kempt Mental Status: mental status grossly normal Speech and movement: Normal speech and movement present Affect: normal affect Office Procedures Nebulizer Treatment Nebulizer Treatment 11176-Uvmhuoala/MDI RX initial, or Nebulizer Subsequent Treatment Office Meds ipratropium 0.5 mg-albuterol 3 mg (2.5 mg base)/3 mL nebulization soln Performing Provider: Priscila Hartman MD [place] [facility] [place] [facility] Administered by: Audra Rolon on 01/02/25 13:44 Dose Route Admin Location Dispensed Lot Number Expiration Date [facility] [employer] 3 mL inhalation 3 mL [id number] 04/15/26 91752-846-52 [employer] 3 mL inhalation 3 mL Coding Level of Care Code Est Pt Level 4 (11607) Complex EM visit Add On G2211 Diagnoses COPD with acute exacerbation J44.1 Essential hypertension I10 Dyslipidemia E78.5 Obesity (BMI 30-39.9) E66.9 Type 2 diabetes mellitus without complication, with no history of insulin use E11.9 CPT Codes Nebulizer Treatment - Nebulizer Treatment, initial or subsequent: 64139- Nebulizer/MDI RX initial, or Nebulizer Subsequent Treatment ([id number]) Assessment & Plan Assessment & Plan (1) COPD with acute exacerbation: Code(s): J44.1 - Chronic obstructive pulmonary disease with (acute) exacerbation Category: Medical Plan: Patient given nebulizer treatment with DuoNeb with improvement in breathing noted prescription sent for albuterol inhaler 1-2 inhalations every 4-6 hours as needed for episodes of bronchospasm and wheezing., Symbicort 160-4.5 mcg, do 1-2 inhalations every 12 hours, rinse mouth after use. Empirically placed on azithromycin 250 mg per tablet came take 2 tablets in the 1st day and then 1 tablet on days 2-5. Patient advised to get flu and pneumonia vaccine once feeling better. Pulmonary consult ordered as per patient request (2) Essential hypertension: Code(s): I10 - Essential (primary) hypertension Category: Medical Plan: * Continue lisinopril and hydrochlorothiazide this same dose, basic metabolic panel ordered to be done in February prior to next appointment (3) Dyslipidemia: Code(s): E78.5 - Hyperlipidemia, unspecified Category: Medical Plan: , currently on rosuvastatin 5 mg taken every other day, repeat another fasting lipid panel in February prior to appointment (4) Obesity (BMI 30-39.9): Code(s): E66.9 - Obesity, unspecified Category: Medical Plan: Advised weight loss through diet and exercise. (5) Type 2 diabetes mellitus without complication, with no history of insulin use: Code(s): E11.9 - Type 2 diabetes mellitus without complications Category: Medical Plan: Patient states that he has stopped taking his Jardiance as it was making him too sleepy. Will repeat another hemoglobin A1c and treat accordingly. See him back for follow-up in February 2025 Orders: Orders Aspartate Amino Transferase 02/18/25 E11.9 - Type 2 diabetes mellitus without complications, E66.9 - Obesity, unspecified, E78.5 - Hyperlipidemia, unspecified, I10 - Essential (primary) hypertension, Z12.5 - Encounter for screening for malignant neoplasm of prostate Alanine Aminotransferase 02/18/25 E11.9 - Type 2 diabetes mellitus without complications, E66.9 - Obesity, unspecified, E78.5 - Hyperlipidemia, unspecified, I10 - Essential (primary) hypertension, Z12.5 - Encounter for screening for malignant neoplasm of prostate Hemoglobin A1c 02/18/25 E11.9 - Type 2 diabetes mellitus without complications, E66.9 - Obesity, unspecified, E78.5 - Hyperlipidemia, unspecified, I10 - Essential (primary) hypertension, Z12.5 - Encounter for screening for malignant neoplasm of prostate Microalbumin, Random (w Creat) 02/18/25 E11.9 - Type 2 diabetes mellitus without complications, E66.9 - Obesity, unspecified, E78.5 - Hyperlipidemia, unspecified, I10 - Essential (primary) hypertension, Z12.5 - Encounter for screening for malignant neoplasm of prostate PSA,Total (Free>4and<10) 02/18/25 E11.9 - Type 2 diabetes mellitus without complications, E66.9 - Obesity, unspecified, E78.5 - Hyperlipidemia, unspecified, I10 - Essential (primary) hypertension, Z12.5 - Encounter for screening for malignant neoplasm of prostate AMB Nebulizer Treatment Today J41.0 - Simple chronic bronchitis Basic Metabolic Panel Fasting 02/18/25 E11.9 - Type 2 diabetes mellitus without complications, E66.9 - Obesity, unspecified, E78.5 - Hyperlipidemia, unspecified, I10 - Essential (primary) hypertension, Z12.5 - Encounter for screening for malignant neoplasm of prostate Lipid Panel 02/18/25 E11.9 - Type 2 diabetes mellitus without complications, E 66.9 - Obesity, unspecified, E78.5 - Hyperlipidemia, unspecified, I10 - Essential (primary) hypertension, Z12.5 - Encounter for screening for malignant neoplasm of prostate Referrals Pulmonology Referral J41.0 - Simple chronic bronchitis Medications: New azithromycin For 250 mg dose pack: take 500 mg today (day 1), then 250 mg for 4 days (days 2-5) PO 6 tabs 0RF budesonide-formoterol 160-4.5 mcg/actuation (Symbicort) 2 puffs inhalation Q12H 10.2 grams 0RF albuterol sulfate 90 mcg/actuation (Ventolin HFA) 2 puffs inhalation Q6H PRN 8.5 grams 1RF shortness of breath or wheezing
== END 2025-01-02 13:51 | disposition home or self-care (01) ==
LOC: HO.HMCC 12:46
PROVIDERS: PCP Internal Medicine; Visit Provider Internal Medicine
DX: J44.1 Chronic obstructive pulmonary disease with (acute) exacerbation (principal); E11.9 Type 2 diabetes mellitus without complications; J41.0 Simple chronic bronchitis; Z68.37 Body mass index [BMI] 37.0-37.9, adult; E66.9 Obesity, unspecified; I10 Essential (primary) hypertension; E78.5 Hyperlipidemia, unspecified

== ENCOUNTER → 2025-01-02 12:46 | Outpatient (BNVA) | payer MEDICARE, MEDICAID, SELFPAY | PROVIDERS: PCP Internal Medicine; Visit Provider Internal Medicine | DX: J44.1 Chronic obstructive pulmonary disease with (acute) exacerbation (principal); I10 Essential (primary) hypertension; E78.5 Hyperlipidemia, unspecified; E66.9 Obesity, unspecified; E11.9 Type 2 diabetes mellitus without complications; Z68.37 Body mass index [BMI] 37.0-37.9, adult; Z79.899 Other long term (current) drug therapy | CPT/HCPCS: 94640; 99212 ==

== ENCOUNTER 2025-01-17 10:14 | Outpatient (REF) | payer MEDICARE, MEDICAID, SELFPAY ==
--- NOTE | ~2025-01-17 | XR_ITS ---
EXAMINATION: XR CHEST 2 VIEWS HISTORY: R05.9 - Cough, unspecified COMPARISON: Comparison is made with the prior examination dated 11/17/2024. FINDINGS: PA and lateral views of the chest are submitted. The lungs are expanded and clear. There is no pleural effusion, pneumothorax, or pulmonary vascular congestion. The heart is normal in size. There is degenerative disc disease of the spine. XR/XR chest 2V IMPRESSION: No acute cardiopulmonary abnormality. Electronically signed by: Thom Coelho MD 01/17/2025 10:58 AM KEO
[2025-01-17 15:38] LABS: Resp Syncy Virus RNA Qual PCR NEGATIVE (Negative); SARS COV2 PCR INHOUSE NEGATIVE (Negative)
[2025-01-17 15:46] LABS: MANUAL DIFF FLAG NO
[2025-01-17 17:10] LABS: Hematocrit 45.5 % (42.0-52.0); Hemoglobin 14.4 g/dl (14.0-18.0); Imm Gran Abs Auto 0.03 X10*3/uL (0.00-0.03); Imm Gran Pct Auto 0.3 % (0.0-0.4); Lymphocytes Absolute Auto 2.1 X10*3/uL (1.2-4.9); Mean Corpuscular HGB Conc 31.6 g/dl (31.0-36.0); Mean Corpuscular Hemoglobin 28.9 pg (27.0-33.0); Mean Corpuscular Volume 91.2 fL (80.0-98.0); NRBC Abs Auto 0.000 X10*3/uL (0.0-0.012); NRBC Pct Auto 0.0 /100WBC (0.0-0.2); Platelet Count 210 X10*3/uL (160-400); Red Blood Count 4.99 X10*6/uL (4.60-5.80); White Blood Count 9.0 X10*3/uL (4.8-10.8)
== END 2025-01-17 10:15 | disposition home or self-care (01) ==
LOC: HO.HMGCX 10:14
PROVIDERS: Internal Medicine; PCP Internal Medicine; Visit Provider Physician Assistant
DX: J44.1 Chronic obstructive pulmonary disease with (acute) exacerbation (principal); J41.0 Simple chronic bronchitis; L20.82 Flexural eczema; R09.89 Other specified symptoms and signs involving the circulatory and respiratory systems; D68.51 Activated protein C resistance; G47.33 Obstructive sleep apnea (adult) (pediatric); Z86.718 Personal history of other venous thrombosis and embolism; Z79.01 Long term (current) use of anticoagulants; Z79.899 Other long term (current) drug therapy
CPT/HCPCS: 36415; 71046; 82785; 85025; 87637; 99202; 99212

== ENCOUNTER 2025-01-17 10:14 | Outpatient (AMB) | payer MEDICARE, MEDICAID, SELFPAY ==
--- OUTSIDE RECORDS SUMMARY | 2024-12-30 06:10 | XMS_ITS ---
Author Organization [facility] Address [address] [place] [address] Care Team Providers Care Brick Dropper Name Role Phone Devan THOMAS, Priscila Primary Care Provider Thom Gaines Unavailable [phone] REASON FOR VISIT screening colonoscopy Encounters Encounter Location Date Provider Diagnosis [facility] [address] [place] [id number] 12/30/2024 Thom Ko Plan Of Treatment Next Appt Details Provider Name:Thom Ko , 03/13/2025 12:50:00 PM, [address] [place] [address], [phone], Progress Notes * RAMIRO JAMESDOB:1960 ( 64 yo M)Acc No.[id number]:12/30/2024 COLON WITH MAC Patient: RAMIRO BARTLETT Provider: Vince Ko MD :1960 A ge:64 Y S ex:Male Date:12/30/2024 Address:[address] [place] [address] [address] [id number] Pcp:Priscila Hartman MD Subjective: * Chief Complaints: * 1 . Screening colonoscopy. * Medical History: Objective: * Vitals: Assessment: Plan: * Treatment: * * The named appointment provid er may or may not be the originator of this progress note, and it is not deemed complete until electronically signed by the appointment provider. Sign off status: Pending * Provider: Vince Ko MD Date: Generated for Rachel aguiar/Radha/Petrasmitting on: 03/19/2024 12:04 PM EST
[2025-01-17 10:16] VITALS: BP 124/80; PULSE 72; TEMP 36.8; O2SAT 93; BMI 38.6
--- NOTE | 2025-01-17 10:16 | AM.OFFWIN_ITS ---
Intake Vital Signs 01/17/25 10:16 Height 6 ft Weight 285 lb BMI 38.6 BP 124/80 Blood Pressure Location Rt brachial Position Sitting Pulse 72 Pulse Source Pulse Oximeter Temp 98.2 F Temp Source Oral Pulse Oximetry (%) 93 Oxygen Delivery Method Room Air Intake Visit Reasons: EP-upper respiratory issues Intake Note: Patient presents with c/o URI that was not relieved by z-jose prescribed by Dr. Hartman on 01/02/25. Patient has SOB/wheezing. Patient Tobacco Use Status: Never used Tobacco Allergies oxycodone Allergy (Verified 01/17/25 10:20) Itching Sulfa (Sulfonamide Antibiotics) Allergy (Verified 01/17/25 10:20) Itching HPI HPI Comments History of Present Illness Details History - The patient is a 64-year-old male pres enting with exacerbation of chronic respiratory symptoms. - History of Problem: The patient has a long-standing history of respiratory issues, including asthma and bronchitis since childhood. - Detailed Description of the Problem: T he current episode involves persistent wheezing and throat clearing, particularly at night, with no relief from previous antibiotic treatment. - Progression: Symptoms have been recurr ent and persistent, with no significant improvement despite previous interventions. - Interventions: Previous treatments inc luded a Z-Jose, prednisone, and doxycycline, with limited efficacy. - Relevant Medical History: The patient has not had a recent pulmonology follow- up despite a referral, and a chest X-ray was last performed in November. - Chronology of Events: The patient was referred to a smoking pipe repairer on the of last month but has not yet been seen. - Eczema: The patient reports eczema jonathan alissa affecting the right hand, with p revious advice to use topical treatment sparingly. Review of Systems - Respiratory: Reports persistent wheezi ng and throat clearing, denies dyspnea, cough, or hemoptysis. - Gastrointestinal: Denies acid reflux o r related symptoms. - Neurological: Denies headaches, dizzin ess, or balance issues. - General: Denies fever, fatigue, or ear pain. All systems reviewed and are unremarkable except as noted in HPI Physical Exam General: Cooperative, healthy appearing, comfortable and no acute distress Orientation/consciousness: Patient oriented x3 Limitations: No limitations Head: Normal to inspection Ears: Hearing grossly normal bilaterally, external ears normal, EAC's normal bilaterally and TM's normal bilaterally Nose: Normal external nose present, Normal nares present and No nasal discharge present Face and sinus: Normal facial exam and sinuses nontender Mouth: Normal oral and palatal mucosa present and moist mucous membranes Throat: Tonsils normal, no exudates, uvula midline, posterior oropharynx erythema Eyes: Appearance normal, both eyes and all related structures Neck: Normal visual inspection, full ROM Respiratory: rhonchi and exp wheezes. Normal respiratory effort, able to speak in complete sentences, actively coughing, no respiratory distress, not tachypneic, no tripod positioning and no use of accessory muscles, Cardiovascular: Regular rate and rhythm. Normal S1 and S2 Skin: No rashes or lesions noted, right hand base of palm with dry, flaky skin, tips of 2nd and 3rd digit with scaly patches and fissures on the tips. Neuro: Patient oriented x3 Extremities: Normal to inspection and Yes no clubbing, cyanosis or edema PFSH Medical History COPD with acute exacerbation Cough Pain of plantar aspect of heel Restrictive airway disease Urticaria due to heat Type 2 diabetes mellitus without complication, with no history of insulin use History of pulmonary embolus (PE) History of DVT (deep vein thrombosis) Pulmonary nodule 1 cm or greater in diameter Current use of supervisor sunglasses anticoagulation Factor 5 Leiden mutation, heterozygous Erectile dysfunction Vitamin D deficiency Colon cancer screening Obesity (BMI 30-39.9) Varicose veins of both lower extremities Eczema Dyslipidemia Essential hypertension Surgical History Hx of colonoscopy S/P anal fissurectomy Family History Father Diabetes mellitus Coronary artery disease Mother Dementia Sister No problems noted. 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 Chronic Obstructive Pulmonary Disease (Copd) - VSS, pt well appearing and PE remarkable for rhonchi and exp wheezes. - A chest X-ray is recommended to rule out pneumonia due to the presence of rhonchi. - Medication: Prescribed SoluMedrol Dosepak for a six-day steroid taper to manage inflammation and wheezing. - Additional Treatment: Tessalon Perles prescribed for cough management. - Follow-up: Advised to contact the smoking pipe repairer for further evaluation and management of COPD. - Continue using Symbicort inhaler twice daily and albuterol as needed for symptom relief. (2) Eczema: Code(s): L30.9 - Dermatitis, unspecified Qualifiers: Eczema type: flexural Qualified Code(s): L20.82 - Flexural eczema Plan: Eczema - Treatment: Advised to apply topical cream twice daily for seven days, then el ssess. - Additional Advice: Use gloves after application to enhance treatment efficacy and prevent loss of medication. Orders: Orders XR chest 2V Today R05.9 - Cough, unspecified SARS-CoV2/FLU/RSV Today R09.89 - Other specified symptoms and signs involving the circulatory and respiratory systems Medications: New methylprednisolone PO PER PKG DIR for 6 days 21 ea 0RF Coding Level of Care Code Est Pt Level 4 (33189) Diagnoses Bronchitis J40 Flexural eczema L20.82 Eczema type: flexural
--- OUTSIDE RECORDS SUMMARY | 2025-01-17 12:04 | XMS_ITS | Clinical Summary ---
Author Organization [facility] Address [address] [place] [address] Care Team Providers Care Validation Software Facilitator Name Role Phone Priscila Hartman MD Primary [...] Assessment 2023 Depression Screening 03/16/2024 COVID-19 Vaccine (3 - 2024-2 6 season) 2024 07/11/2020, 06/13/2020 [...] age to complete this topic Care Teams Validation Software Facilitator Relationship Specialty Start Date End Date Priscila Hartman MD [address] [place] [address] PCP - General 11/25/22
--- OUTSIDE RECORDS SUMMARY | 2025-01-17 12:04 | XMS_ITS | Patient Health Record ---
Author Organization [facility] Address [address] [place] [id number] Care Team Providers Care Collator Name Role Phone Devan THOMAS, Priscila Primary Care Provider Thom Gaines [phone] Allergies Allergen (clinical drug ingredient) Drug/Non Drug [...] MG 2 tablets Orally Onc e a day; Duration: 30 day(s) 09/28/2024 Active hydroCHLOROthiazide 12.5 MG 1 capsule in the morning Orally Once a day; Duration: 30 day(s) 09/28/2024 Active Rosuvastatin Calcium 5 MG 1 tablet Orall y Once a day; Duration: 30 day(s) 09/28/2024 Active Social History Tobacco [...] Status Risk Notes Problem Colon cancer screening (533885617) Colon cancer screening (Z12.11) Active confirmed Problem Long-term current use of anticoagulant (026607570) 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 (Z79.01) Active confirmed Problem Preprocedural examination ([id number]) Preprocedural examination (Z01.818) Active confirmed Vital Signs Temperature 97.7 degrees Fahrenheit 09/28/2024 Blood pressure diastolic 01 mm Hg 09/28/2024 Height 72 in 09/28/2024 Blood pressure systolic 001 mm Hg 09/28/2024 Weight 272.4 lbs 09/28/2024 BMI 36.94 kg/m2 09/28/2024 Procedures Procedure Date Ordered Date Performed Result Body Sit e COLONOSCOPY 09/28/2024 N/A Encounters Encounter Location Date Provider Diagnosis [facility] [address] [place] [phone] 09/28/2024 Thom Stefani Colon cancer screeni ng Z12.11 ; senior care (current) use of anticoagulants Z79.01 and Preprocedural examination Z01.818 [facility] [address] [place] [phone] 12/28/2024 Thom Ko Assessments Encounter Date Diagnosis (ICD Code) Assessment [...] keep you advised of his progress. 09/28/2024 senior care (current) use of anticoagulants (ICD-10 - Z79.01) [...] COLONOSCOPY 09/28/2024 Next Appt Details Provider Name:Thom Kaye Stefani , 03/13/2025 12:50:00 PM, [address] [place] [address] , [place], [place], [phone], Insurance Providers Payer Name Payer Address Payer Phone Subscriber Number Group Number Insured Name Patient Relationship to Insured Coverage Start Date Coverage End Date MED[place]ARE OF [place] [address] [place] [address] [id number] RAMIRO JAMES Self - patient is the insured MEDICAID OF [facility] [address] [place] [id number] [id number] RAMIRO JAMES Self - patient is the insured Medical (General) History Medical History History ICD Code HTN Denies [place],DM,CVA,renal disease COPD Neg. screening colonoscopy in 2009 RLE DVT with PE in 2023- on Eliquis- -has seen Dr. Hyman at [facility] Hematology Hyperlipidemia Starting a GLP-1 in 09/2024 for weight lo ss Surgical History Surgery Date(Month/Year) Rectal fissures/Hemorrhoids
--- OUTSIDE RECORDS SUMMARY | 2025-01-17 12:04 | XMS_ITS | Patient Health Record ---
Author Organization [facility] Address [address] [place] [address] Care Team Providers Care Gum Dipper Name Role Phone Devan THOMAS, Priscila Hawkins Primary Care Provider Un available Garry Allen Unavailable [phone] Allergies Allergen (clinical drug ingredient) Drug/Non Drug [...] W/U Status Risk Notes Problem Plantar wart (81200327) Plantar wart (B07.0) Active confirmed Problem Acquired hammer toe of left foot ([id number] 103) Other hammer toe(s) (acquired), left foot (M20.42) Active confirmed Plan Of Treatment Pending Test Test Name Order Date X ray : Foot, left 3V 05/25/2019 Insurance Providers Payer Name Payer Address Payer Phone Subscriber Number Group Number Insured Name Patient Relationship to Insured Coverage Start Date Coverage End Date [facility] [address] [facility] [place] [id number] Derick Fields Self - patient is the insured Medical (General) History Medical History History ICD Code High blood pressure Measles blood clots Surgical History Surgery Date(Month/Year) Hospitalization History Reason Date([facility] lung [facility] Respiratory infection 08/01
--- OUTSIDE RECORDS SUMMARY | 2025-01-17 12:04 | XMS_ITS | Clinical Summary ---
Author Organization [facility] Address [address] [place] [address] Care Team Providers Care Dry Primer Powder Blender Name Role Phone Priscila Hartman MD Primary Care Provider [phone] Allergies Active Allergy Reactions Criticality Noted Date [...] age to complete this topic Care Teams Dry Primer Powder Blender Relationship Specialty Start Date End Date Priscila Hartman MD [address] [place] [address] RADHA SALINAS [id number] PCP - General Internal Medicine 11/25/22
== END 2025-01-17 10:57 | disposition home or self-care (01) ==
PROVIDERS: PCP Internal Medicine; Visit Provider Physician Assistant
DX: J40 Bronchitis, not specified as acute or chronic (principal); L20.82 Flexural eczema

== ENCOUNTER → 2025-01-17 10:48 | Outpatient (BNV) | payer MEDICARE, MEDICAID, SELFPAY | PROVIDERS: PCP Internal Medicine; Visit Provider Radiology Diagnostic Radiology | DX: R05.9 Cough, unspecified (principal) | CPT/HCPCS: 71046 ==

== ENCOUNTER 2025-01-17 14:08 | Outpatient (AMB) | payer MEDICARE, MEDICAID, SELFPAY ==
[2025-01-17 14:35] VITALS: BP 110/62; PULSE 78; O2SAT 94; BMI 37.8
--- NOTE | 2025-01-17 14:35 | MHC.OFFVIS ---
Vital Signs 01/17/25 14:35 Height 6 ft Weight 278 lb 14.156 oz BMI 37.8 BP 110/62 Blood Pressure Location Lt brachial Position Sitting Pulse 78 Pulse Source Pulse Oximeter Pulse Oximetry (%) 94 Oxygen Delivery Method Room Air Intake Visit Reasons: Bronchitis Intake Note: pt is here as a new patient for shortness of breath with stairs and walking. Behavioral Health Consultant Required: No Chief Airline Radio Operator: Chief Airline Radio Operator offered & declined Allergies oxycodone Allergy (Verified 01/17/25 16:23) Itching Sulfa (Sulfonamide Antibiotics) Allergy (Verified 01/17/25 16:23) Itching Medication List - Last Reconciled 01/17/25 by Ila Presley MD albuterol sulfate 90 mcg/actuation (Ventolin HFA) 2 puffs inhalation Q6H PRN apixaban (Eliquis) 5 mg PO BID benzonatate 100 mg PO bid-tid PRN 7 days betamethasone dipropionate 0.05% 1 appl topical DAILY PRN 10 days budesonide-formoterol 160-4.5 mcg/actuation (Symbicort) 2 puffs inhalation Q12H hydrochlorothiazide 12.5 mg PO DAILY lisinopril 5 mg PO DAILY methylprednisolone PO PER PKG DIR for 6 days rosuvastatin 5 mg PO Q2D 90 days sildenafil 100 mg PO DAILY PRN triamcinolone acetonide 0.5% 1 appl topical BID Do you need a note to return to daycare/school/sports/work: No HPI HPI Bronchitis: Details: This 64 years old gentleman, comes to the office on an urgent basis today because of on going cough and wheezing with feeling of chest congestion, for the past few days. He was sleeping in the recliner last night and continue to have wheezing throughout the night. Early this morning he was seen in the urgent care clinic and has been prescribed Medrol Dosepak as well as Z-Jose. Then he called our office to make appointment for pulmonary follow-up, and because we had an opening today he was told to come today if he can. He does show up this afternoon and is still feeling congested in the chest. I get the information from him that he has been getting very frequent bouts of chest congestion, he has been treated with a few courses of prednisone and antibiotics, during this year. On a regular basis he is sleeping mostly in the recliner because he feels having cough and wheezing when he lies down flat. He gives history of having bronchial asthma as a child and used to have frequent cough and wheezing for a few years and then it stopped. 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 Now he is retired because of his cough and wheezing. 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 At the same time him he also remains grossly obese with especially abdominal obesity, a question of sleep apnea has been raised. [facility] Medical History (Updated 01/17/25 @ 16:48 by Ila Presley MD) LUDMILA (obstructive sleep apnea) Asthma COPD with acute exacerbation Cough Pain of plantar aspect of heel Restrictive airway disease Urticaria due to heat Type 2 diabetes mellitus without complication, with no history of insulin use History of pulmonary embolus (PE) History of DVT (deep vein thrombosis) Pulmonary nodule 1 cm or greater in diameter Current use of longterm anticoagulation Factor 5 Leiden mutation, heterozygous Erectile dysfunction Vitamin D deficiency Colon cancer screening Obesity (BMI 30-39.9) Varicose veins of both lower extremities Eczema Dyslipidemia Essential hypertension Surgical History Hx of colonoscopy S/P anal fissurectomy Family History Father Diabetes mellitus Coronary artery disease Mother Dementia Sister No problems noted. 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 Cognitive needs: No Hearing needs: No Vision needs: Yes Review of Systems Const All systems reviewed & are unremarkable except as noted in HPI and below Eyes Reports no additional complaints ENT Reports nasal congestion (Frequent bouts) Card Denies edema and Denies irregular heart rhythm Resp Reports as per HPI GI Reports no additional complaints Reports erectile dysfunction Musc Reports no additional complaints Skin/Breast Reports other (History of periodic urticaria) Neuro Reports no additional complaints Psych Reports no additional complaints Endo Reports no additional complaints Ceasar/Lymph Reports other (History of coagulopathy and DVTs) Aller/Immun Reports no additional complaints Physical Exam Vital Signs: Last Vital Signs Pulse 78 01/17/25 14:35 BP 110/62 01/17/25 14:35 Pulse Ox 94 01/17/25 14:35 Oxygen Delivery Method Room Air 01/17/25 14:35 BMI result Body Mass Index 37.8 He is grossly obese especially with abdominal obesity. He has narrow oropharynx with retrognathia of the lower jaw. Const General: no acute distress (But he sounds congested in the upper chest), alert and awake Orientation/consciousness: patient oriented x3 HEENT Head: Yes normal to inspection General nose exam: No nasal polyps present and No nasal discharge present Face and sinus: Yes sinuses nontender Mouth: oropharynx abnormals (Oropharynx is moderately narrow Mallampati class 3) Teeth and gingiva: other (He does have retrognathia of the lower jaw.) Throat: Yes posterior oropharynx normal Eyes General: appearance normal, both eyes and all related structures Neck Other: Neck circumference 17 in, there is lose skin apron below the chin Neck: Yes no lymphadenopathy, Yes trachea midline and Yes no JVD Thyroid: Thyroid normal Chest Chest palpation & inspection: normal inspection of the chest, normal palpation of entire chest wall and no tenderness Resp Other: Chest percussion is resonant. Breath sounds are distant. He has inspiratory wheezes in the upper chest Cardio Palpation: normal PMI Rate: regular rate Rhythm: regular rhythm Heart sounds: no gallops and no murmurs GI Palpation (GI): Soft to palpation, nontender, No hepatosplenomegaly present, no masses and Other GI palpation findings present Auscultation: normal bowel sounds Back/Spine/Pelvis Thoracic/Lumbar Spine: thoracic and lumbar spine normal to inspection Skin General skin exam: no rashes or lesions noted Neuro General: patient oriented x3 and no focal motor deficits Cranial nerves: Yes CN's II-XII intact bilaterally Extrem General: Yes normal to inspection, Yes no clubbing, cyanosis or edema and Yes no calf tenderness Psych Appearance: grossly normal and well kempt Speech and movement: Normal speech and movement present Results Reviewed Results Reviewed: Chest x-ray, no active disease Assessment & Plan Assessment & Plan (1) COPD with acute exacerbation: Comment: Patient does have features of chronic obstructive pulmonary disease with frequent bouts of asthmatic bronchitis. He probably does have hyper reactive airways. Has had frequent acute exacerbations and frequently treated with courses of prednisone. At present he has chest congestion with wheezing. Code(s): J44.1 - Chronic obstructive pulmonary disease with (acute) exacerbation Category: Medical Plan: OK to use Depo-Medrol which has been prescribed from the urgent clinic. Also complete course of Z-Jose. Start using Symbicort 160-4.52 puffs b.i.d.. And use albuterol HFA 2 puffs Q 6 hours p.r.n.. I have ordered CBC with diff to check for eosinophilia, and also ordered IgE level . (2) Factor 5 Leiden mutation, heterozygous: Comment: Seen by [facility], Dr. 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 indefinitely (3) History of DVT (deep vein thrombosis): Comment: Right peroneal Vein 11/2022. This is due to his ongoing factor 5 Leiden mutation. .Not active at this time Code(s): Z86.718 - Personal history of other venous thrombosis and embolism Category: Medical Plan: Continue Eliquis 5 mg b.i.d. (4) Bronchitis: Comment: As noted above he gets frequent bouts of acute bronchitis. I think he has asthma/COPD syndrome. I suspect that he may have eosinophilic asthma. Code(s): J40 - Bronchitis, not specified as acute or chronic Category: Medical Plan: As under COPD (5) LUDMILA (obstructive sleep apnea): Comment: This gentleman is grossly obese, he has obese neck, retrognathia of the lower jaw, and the fact that he is sleeping mostly in the recliner, suggests to possibility of obstructive sleep apnea. Code(s): G47.33 - Obstructive sleep apnea (adult) (pediatric) Category: Medical Plan: As soon as he over comes acute exacerbation of COPD I would like to do a sleep study on him to rule out sleep apnea Orders: Orders Complete Blood Count Auto Diff Today J40 - Bronchitis, not specified as acute or chronic, J45.909 - Unspecified asthma, uncomplicated Immunoglobulin E Today J40 - Bronchitis, not specified as acute or chronic, J41.0 - Simple chronic bronchitis, J45.909 - Unspecified asthma, uncomplicated Coding Level of Care Code New Pt Level 3 (13321) Diagnoses COPD with acute exacerbation J44.1 Factor 5 Leiden mutation, heterozygous D68.51 History of DVT (deep vein thrombosis) Z86.718 Bronchitis J40 LUDMILA (obstructive sleep apnea) G47.33
== END 2025-01-17 15:28 | disposition home or self-care (01) ==
LOC: HO.HPS 14:09
PROVIDERS: PCP Internal Medicine; Referring Provider Internal Medicine; Visit Provider Internal Medicine
DX: J44.1 Chronic obstructive pulmonary disease with (acute) exacerbation (principal); D68.51 Activated protein C resistance; Z86.718 Personal history of other venous thrombosis and embolism; J40 Bronchitis, not specified as acute or chronic; G47.33 Obstructive sleep apnea (adult) (pediatric)
CPT/HCPCS: 99203

== ENCOUNTER 2025-01-30 13:04 | Outpatient (AMB) | payer MEDICARE, MEDICAID, SELFPAY ==
[2025-01-30 13:13] VITALS: BP 122/64; PULSE 74; O2SAT 94; BMI 37.8
--- NOTE | 2025-01-30 13:13 | A.OFFVIS_ITS ---
Vital Signs 01/30/25 13:13 Height 6 ft Weight 278 lb 14.156 oz BMI 37.8 BP 122/64 Blood Pressure Location Lt brachial Position Sitting Pulse 74 Pulse Source Pulse Oximeter Pulse Oximetry (%) 94 Oxygen Delivery Method Room Air Intake Visit Reasons: Bronchitis Intake Note: pt is here for follow up of lab work, and breathing is better today, prednisone did help Deployment Engineer Required: No Greenhouse Laborer: Greenhouse Laborer offered & declined Allergies oxycodone Allergy (Verified 01/30/25 13:16) Itching Sulfa (Sulfonamide Antibiotics) Allergy (Verified 01/30/25 13:16) Itching Do you need a note to return to daycare/school/sports/work: No HPI HPI Bronchitis: Details: MR. WILEY, 64 YEARS OLD, GENTLEMAN IS HERE FOR SHORT-TERM FOLLOW-UP. ON HIS INITIAL VISIT MY IMPRESSION WAS THAT HE HAS LONG-TIME HISTORY OF ALLERGIC ASTHMA/COPD. I STARTED HIM ON A SHORT COURSE OF PREDNISONE AND THEN SYMBICORT 160-4.52 PUFFS B.I.D. AND ALSO TREATED WITH A SHORT COURSE OF Z-SARA. HE FEELS MUCH BETTER. HAS VERY LITTLE COUGH OR WHEEZING. STILL GETS MILD NASAL CONGESTION OFF AND ON. I HAD A GOOD DISCUSSION WITH HIM AGAIN. HE HAS HISTORY OF ASTHMA SINCE CHILDHOOD. HE GETS BOUTS OF BRONCHITIS WITH ANY UPPER RESPIRATORY INFECTION OR EXPOSURE. 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 ON HIS LAST VISIT WE CHECKED CBC WITH DIFF AND ALSO IGE LEVEL, WHICH ARE BOTH HIGH, C/W HYPERSENSITIVITY SYNDROME. THIS GENTLEMAN IS ALSO GROSSLY OBESE BUT HE SAY IS THAT HE HAS NO PROBLEM WITH SLEEPING. 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 LUDMILA (obstructive sleep apnea) Asthma COPD with acute exacerbation Cough Pain of plantar aspect of heel Restrictive airway disease Urticaria due to heat Type 2 diabetes mellitus without complication, with no history of insulin use History of pulmonary embolus (PE) History of DVT (deep vein thrombosis) Pulmonary nodule 1 cm or greater in diameter Current use of nursing home anticoagulation Factor 5 Leiden mutation, heterozygous Erectile dysfunction Vitamin D deficiency Colon cancer screening Obesity (BMI 30-39.9) Varicose veins of both lower extremities Eczema Dyslipidemia Essential hypertension Surgical History Hx of colonoscopy S/P anal fissurectomy Family History Father Diabetes mellitus Coronary artery disease Mother Dementia Sister No problems noted. 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 Cognitive needs: No Hearing needs: No Vision needs: Yes Review of Systems Const All systems reviewed & are unremarkable except as noted in HPI and below Eyes Reports no additional complaints ENT Reports nasal congestion (Frequent bouts) Card Denies edema and Denies irregular heart rhythm Resp Reports as per HPI GI Reports no additional complaints Reports erectile dysfunction Musc Reports no additional complaints Skin/Breast Reports other (History of periodic urticaria) Neuro Reports no additional complaints Psych Reports no additional complaints Endo Reports no additional complaints Ceasar/Lymph Reports other (History of coagulopathy and DVTs) Aller/Immun Reports no additional complaints Physical Exam Vital Signs: Last Vital Signs Pulse 74 01/30/25 13:13 BP 122/64 01/30/25 13:13 Pulse Ox 94 01/30/25 13:13 Oxygen Delivery Method Room Air 01/30/25 13:13 BMI result Body Mass Index 37.8 He is grossly obese especially with abdominal obesity. He has narrow oropharynx with retrognathia of the lower jaw. Const General: no acute distress (But he sounds congested in the upper chest), alert and awake Orientation/consciousness: patient oriented x3 HEENT Head: Yes normal to inspection General nose exam: No nasal polyps present and No nasal discharge present Face and sinus: Yes sinuses nontender Mouth: oropharynx abnormals (Oropharynx is moderately narrow Mallampati class 3) Teeth and gingiva: other (He does have retrognathia of the lower jaw.) Throat: Yes posterior oropharynx normal Eyes General: appearance normal, both eyes and all related structures Neck Other: Neck circumference 17 in, there is lose skin apron below the chin Neck: Yes no lymphadenopathy, Yes trachea midline and Yes no JVD Thyroid: Thyroid normal Chest Chest palpation & inspection: normal inspection of the chest, normal palpation of entire chest wall and no tenderness Resp Other: Chest percussion is resonant. Breath sounds are distant. No crepitations or wheezes are heard today. Cardio Palpation: normal PMI Rate: regular rate Rhythm: regular rhythm Heart sounds: no gallops and no murmurs GI Palpation (GI): Soft to palpation, nontender, No hepatosplenomegaly present, no masses and Other GI palpation findings present Auscultation: normal bowel sounds Back/Spine/Pelvis Thoracic/Lumbar Spine: thoracic and lumbar spine normal to inspection Skin General skin exam: no rashes or lesions noted Neuro General: patient oriented x3 and no focal motor deficits Cranial nerves: Yes CN's II-XII intact bilaterally Extrem General: Yes normal to inspection, Yes no clubbing, cyanosis or edema and Yes no calf tenderness Psych Appearance: grossly normal and well kempt Speech and movement: Normal speech and movement present Results Reviewed Results Reviewed: Eosinophil count = 7.4 IgE level = 455 Assessment & Plan Assessment & Plan (1) Asthma-COPD overlap syndrome: Comment: He has history of bronchial asthma. And may have now gone into COPD. He has history of frequent acute attacks , secondary to environmental allergens as well as to respiratory infections. High eosinophilic count and high IgE level are C/W allergic etiology of his bronchial asthma. Code(s): J44.9 - Chronic obstructive pulmonary disease, unspecified Category: Medical Plan: Patient educated thoroughly about his hypersensitivity problem. He was advised about the treatment plan . He will be treated with inhaled steroids/LABA perhaps as maintenance inspector . Such as Symbicort 160-4.52 puffs b.i.d. on a regular basis. He can use albuterol 2 puffs Q 4-6 hours prn. For acute flare ups he may need short courses of oral prednisone. If symptoms are not remaining controlled with this routine treatment plan, then he is going to need biologic treatment. Today I have explained to him about the biologic treatment . (2) Hyperimmunoglobulin E (IgE) syndrome: Comment: IgE level 455 is considerably elevated, as incorporated the comments above in asthma/COPD Code(s): D82.4 - Hyperimmunoglobulin E [IgE] syndrome Category: Medical Plan: I explained to the patient, that if his symptoms are not remaining under good control with the routine treatment then he would need biologic treatment (3) Eosinophilia: Comment: Again I explained to him that he has had high eosinophil level , which is reflective of hypersensitivity /Allergy to environmental agents etc . Code(s): D72.10 - Eosinophilia, unspecified Category: Medical Plan: Again explained to the patient that we will keep this in the background for treatment if the routine treatment plan does not work. Plan Patient is scheduled for spirometry before and after bronchodilators ( this is in place of complete pulmonary function test as, at this time over equipment for complete PFT is out of commission ) Coding Level of Care Code Est Pt Level 3 (10332) Diagnoses Asthma-COPD overlap syndrome J44.9 Hyperimmunoglobulin E (IgE) syndrome D82.4 Eosinophilia D72.10
== END 2025-01-30 13:46 | disposition home or self-care (01) ==
LOC: HO.HPS 13:05
PROVIDERS: PCP Internal Medicine; Visit Provider Internal Medicine
DX: J44.9 Chronic obstructive pulmonary disease, unspecified (principal); D82.4 Hyperimmunoglobulin E [IgE] syndrome; D72.10 Eosinophilia, unspecified
CPT/HCPCS: 99213

== ENCOUNTER → 2025-01-30 13:04 | Outpatient (BNVA) | payer MEDICARE, MEDICAID, SELFPAY | PROVIDERS: PCP Internal Medicine; Visit Provider Internal Medicine | DX: J44.9 Chronic obstructive pulmonary disease, unspecified (principal); D82.4 Hyperimmunoglobulin E [IgE] syndrome | CPT/HCPCS: 99212 ==

== ENCOUNTER 2025-02-06 14:20 | Outpatient (AMB) | payer MEDICARE, MEDICAID, SELFPAY ==
--- NOTE | 2025-02-06 15:29 | A.OFFVIS_ITS ---
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 LUDMILA (obstructive sleep apnea) Asthma COPD with acute exacerbation Cough Pain of plantar aspect of heel Restrictive airway disease Urticaria due to heat Type 2 diabetes mellitus without complication, with no history of insulin use History of pulmonary embolus (PE) History of DVT (deep vein thrombosis) Pulmonary nodule 1 cm or greater in diameter Current use of [facility] anticoagulation Factor 5 Leiden mutation, heterozygous Erectile dysfunction Vitamin D deficiency Colon cancer screening Obesity (BMI 30-39.9) Varicose veins of both lower extremities Eczema Dyslipidemia Essential hypertension Surgical History Hx of colonoscopy S/P anal fissurectomy Family History Father Diabetes mellitus Coronary artery disease Mother Dementia Sister No problems noted. 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 69960- Spirometry Office Meds albuterol sulfate 2.5 mg/3 mL (0.083 %) solution for nebulization Performing Provider: Ila Presley MD Performing Location: [facility] [place] Pulmonology Services Administered by: Ivonne Vega LPN on 02/06/25 15:32 Dose Route Admin Location Dispensed Lot Number Expiration Date NDC Employment Specialist/Program Manager 2.5 mg inhalation 3 mL [id number] 04/15/25 1099-0993-02 MYLAN Assessment & Plan Assessment & Plan Orders: Orders AMB Spirometry Testing Today J44.1 - Chronic obstructive pulmonary disease with (acute) exacerbation AMB Nebulizer Treatment Today J41.0 - Simple chronic bronchitis Coding CPT Codes Nebulizer Treatment - Nebulizer Treatment, initial or subsequent: 02475- Nebulizer/MDI RX initial, or Nebulizer Subsequent Treatment ([id number]) Spirometry - CPT: 15772- Spirometry ([id number])
--- OUTSIDE RECORDS SUMMARY | 2025-02-06 19:16 | XMS_ITS | Clinical Summary ---
Author Organization [facility] Address [address] [place] [address] Care Team Providers Care Geotechnicial Properties Technician Name Role Phone Priscila Hartman MD Primary [...] age to complete this topic Care Teams Geotechnicial Properties Technician Relationship Specialty Start Date End Date Priscila Hartman MD [address] [place] [address] PCP - General 11/25/22
--- OUTSIDE RECORDS SUMMARY | 2025-02-06 19:16 | XMS_ITS | Clinical Summary ---
Author Organization [facility] Address [address] [place] [address] Care Team Providers Care Unemployment Inspector Name Role Phone Priscila Hartman MD Primary Care Provider [phone] Allergies Active Allergy Reactions Criticality Noted Date [...] age to complete this topic Care Teams Unemployment Inspector Relationship Specialty Start Date End Date Priscila Hartman MD [address] [place] [address] RADHA SALINAS [address] PCP - General Internal Medicine 11/25/22
== END 2025-02-06 16:25 | disposition home or self-care (01) ==
LOC: HO.HPS 14:21
PROVIDERS: PCP Internal Medicine; Visit Provider Internal Medicine
DX: J41.0 Simple chronic bronchitis (principal)

== ENCOUNTER → 2025-02-06 14:20 | Outpatient (BNVA) | payer MEDICARE, MEDICAID, SELFPAY | PROVIDERS: PCP Internal Medicine; Visit Provider Internal Medicine | DX: J41.0 Simple chronic bronchitis (principal); J44.1 Chronic obstructive pulmonary disease with (acute) exacerbation | CPT/HCPCS: 94640 ==

== ENCOUNTER 2025-03-07 11:47 | Outpatient (AMB) | payer MEDICARE, MEDICAID, SELFPAY ==
--- OUTSIDE RECORDS SUMMARY | 2024-12-30 06:10 | XMS_ITS ---
Author Organization [facility] Address [address] [place] [address] Care Team Providers Care Tire Builder Name Role Phone Devan THOMAS, Priscila Primary Care Provider Thom Gaines Unavailable [phone] REASON FOR VISIT screening colonoscopy Encounters Encounter Location Date Provider Diagnosis [facility] Outpatient [address] [place] [id number] 12/30/2024 Thom Ko Plan Of Treatment Next Appt Details Provider Name:Thom Ko , 05/15/2025 08:30:00 AM, [address] [place] [address], [phone], Progress Notes * RAMIRO JAMESDOB:1960 ( 64 yo M)Acc No.[id number]:12/30/2024 COLON WITH MAC Patient: RAMIRO BARTLETT Provider: Vince Ko MD :1960 A ge:64 Y S ex:Male Date:12/30/2024 Address:[address] [place] [address] [address] [id number] Pcp:Priscila Hartman MD Subjective: * Chief Complaints: * S creening colonoscopy * The named appointment provid er may or may not be the originator of this progress note, and it is not deemed complete until electronically signed by the appointment provider. Sign off status: Pending * Provider: Vince Ko MD Date: Generated for Gayathrii ng/Faxing/eTransmitting on: 05/08/2024 01:05 PM EST
--- NOTE | 2025-03-07 11:50 | MHC.PC.OV ---
Vital Signs 03/07/25 11:51 Height 6 ft Weight 283 lb BMI 38.4 BP 118/80 Blood Pressure Location Lt brachial Position Sitting Pulse 78 Pulse Source Pulse Oximeter Temp 97.9 F Temp Source Oral Pulse Oximetry (%) 93 Oxygen Delivery Method Room Air Intake Visit Reasons: 2 months f/up Senior Software Engineering Manager Required: No Allergies oxycodone Allergy (Verified 03/07/25 11:59) Itching Sulfa (Sulfonamide Antibiotics) Allergy (Verified 03/07/25 11:59) Itching Medication List - Last Reconciled 03/07/25 by Priscila Hartman MD albuterol sulfate 90 mcg/actuation (Ventolin HFA) 2 puffs inhalation Q6H PRN apixaban (Eliquis) 5 mg PO BID betamethasone dipropionate 0.05% 1 appl topical DAILY PRN 10 days budesonide-formoterol 160-4.5 mcg/actuation (Symbicort) 2 puffs inhalation Q12H hydrochlorothiazide 12.5 mg PO DAILY lisinopril 5 mg PO DAILY rosuvastatin 5 mg PO Q2D 90 days sildenafil 100 mg PO DAILY PRN triamcinolone acetonide 0.5% 1 appl topical BID Tobacco use date assessed: 03/07/25 Fall risk assessment: No Falls in past year Last assessed Fall Risk: 03/07/25 Dental Screening Dental Screen Date: 03/07/25 Did you have a dental visit in the last 12 months?: No Did you have a dental problem in the last 6 months where you did not have access to dental care?: No Was dental information given to patient?: Patient has dentist HPI 2 months f/up HPI Details The patient is a 64 year old male presenting with cough and congestion. He reports symptoms that started last weekend, including ongoing congestion and expectoration of phlegm, though his rhinorrhea has improved. He took Zyrtec, which provided some relief. He has a history of Chronic Obstructive Pulmonary Disease (COPD) and uses Symbicort two puffs in the morning and two puffs at night, as well as a Ventolin (albuterol) inhaler. The patient reports experiencing wheezing at night and in the morning upon waking. He recently started seeing a materials handling coordinator and has a follow-up appointment in mid-March. He has diabetes mellitus which he chose to control through lifestyle changes, but has been gaining weight, which he attributes to decreased physical activity. He experiences foot pain, which makes standing for any length of time difficult. His diet consists of chicken, fish, and turkey, and he tries to avoid potatoes, bread, and pasta, with occasional rice consumption. He has given up beer. She received a pneumonia shot in May of this year but has not yet had his flu shot . He has had COVID in the past and is not receiving further boosters. He has a colonoscopy scheduled for March 17. [facility] Medical History (Updated 03/15/25 @ 01:00 by Priscila Hartman MD) Eosinophilia Hyperimmunoglobulin E (IgE) syndrome Asthma-COPD overlap syndrome LUDMILA (obstructive sleep apnea) Cough Pain of plantar aspect of heel Restrictive airway disease Urticaria due to heat Type 2 diabetes mellitus without complication, with no history of insulin use History of pulmonary embolus (PE) History of DVT (deep vein thrombosis) Pulmonary nodule 1 cm or greater in diameter Current use of rn long term care anticoagulation Factor 5 Leiden mutation, heterozygous Erectile dysfunction Vitamin D deficiency Obesity (BMI 30-39.9) Varicose veins of both lower extremities Eczema Dyslipidemia Essential hypertension Surgical History Hx of colonoscopy S/P anal fissurectomy Family History Father Diabetes mellitus Coronary artery disease Mother Dementia Sister No problems noted. 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 Cognitive needs: No Hearing needs: No Vision needs: Yes Questionnaire Thrive Questionnaire Date Thrive assessed: 03/17/24 I am a: Patient What is your living situation today?: I have a steady place to live Within the past 12 months, did the food you bought not last and you didn't have the money to get more?: I choose not to answer this question Within the past 12 months, did you worry whether your food would run out before you got money to buy more?: I choose not to answer this question Do you have trouble paying for medicines?: I choose not to answer this question Do you have trouble getting transportation to medical appointments?: I choose not to answer this question Do you have trouble paying your heating and electricity bill?: I choose not to answer this question Do you have trouble taking care of your child, family member or friend?: I choose not to answer this question Do you have trouble with day-to-day activities such as bathing, preparing meals, shopping, managing finances, etc.?: I choose not to answer this question Are you currently unemployed and looking for a job?: I choose not to answer this question Are you interested in more education?: I choose not to answer this question Currently or been in a relationship where the following occur: No concerns reported THRIVE Score: 0 JESSICA-7 AMB Questionnaire JESSICA-7 Date JESSICA - 7 assessed: 06/08/24 Source: Developed by Drs. Thom Foreman, Melody Ardon, Aamir Blevins and colleagues, with an educational aruna from [employer]. Review of Systems Const All systems reviewed & are unremarkable except as noted in HPI and below Physical exam (Primary Care) Vital Signs: Last Vital Signs Temp 97.9 F 03/07/25 11:51 Pulse 78 03/07/25 11:51 BP 118/80 03/07/25 11:51 Pulse Ox 93 03/07/25 11:51 Oxygen Delivery Method Room Air 03/07/25 11:51 BMI result Body Mass Index 38.4 Tobacco/Smoking Status: Tobacco use Status Tobacco use date assessed 03/07/25 03/07/25 11:55 Patient Tobacco Use Status Never used Tobacco 03/07/25 11:55 e-Cigarette/Vaping Use Never Used 03/07/25 11:55 Thrive Assessment: Date of Thrive Assessment Date Thrive assessed 03/17/24 03/07/25 11:55 Currently or been in a relationship where the following occur: No concerns reported Const General: no acute distress Nutritional Appearance: obese Orientation/consciousness: patient oriented x3 HENMT Ears: external ears normal, TM's normal bilaterally and EAC's normal General nose exam: Normal external nose present and No nasal discharge present Face and sinus: Yes sinuses nontender and Yes face symmetric Mouth: Normal oral and palatal mucosa present and moist mucous membranes Neck Neck: Yes full ROM, Yes no lymphadenopathy and Yes supple Resp Effort & Inspection: normal respiratory effort and able to speak in complete sentences Auscultation: rhonchi and wheezes Cardio Rate: regular rate Rhythm: regular rhythm Heart sounds: S1 normal heart sound present and S2 normal heart sound present GI Inspection: Yes Abdominal panniculus present and Yes obesity Palpation (GI): Soft to palpation, nontender, no guarding and no masses Auscultation: normal bowel sounds Neuro General: patient oriented x3, gait normal, moves all extremities, Normal light touch and pain sensation and no focal motor deficits Extrem Other: Varicose veins noted in both lower extremities, right more than the left read ankle swelling noted bilaterally again right more than the left General: No no joint enlargement, Yes no calf tenderness and Yes normal gait Psych Appearance: grossly normal and well kempt Mental Status: mental status grossly normal Speech and movement: Normal speech and movement present Affect: normal affect Coding Level of Care Code Est Pt Level 3 (24548) Diagnoses URI, acute J06.9 Assessment & Plan Assessment & Plan (1) URI, acute: Code(s): J06.9 - Acute upper respiratory infection, unspecified Plan: Empirically treat with azithromycin, take as directed. Continue with Symbicort and albuterol inhaler as needed. Return to clinic if no improvement after 5 days Medications: New azithromycin For 250 mg dose pack: take 500 mg today (day 1), then 250 mg for 4 days (days 2-5) PO 6 tabs 0RF
[2025-03-07 11:51] VITALS: BP 118/80; PULSE 78; TEMP 36.6; O2SAT 93; BMI 38.4
--- OUTSIDE RECORDS SUMMARY | 2025-03-07 13:05 | XMS_ITS | Clinical Summary ---
Author Organization [facility] Prior to 08/13/[address] [place] [address] Care Team Providers Care Lawn Care Worker Name Role Phone Priscila Hartman MD Primary Care Provider [phone] Allergies Active Allergy Reactions Criticality Noted Date [...] age to complete this topic Care Teams Lawn Care Worker Relationship Specialty Start Date End Date Priscila Hartman MD [address] [place] [address] RADHA SALINAS [address] PCP - General Internal Medicine 11/25/22
--- OUTSIDE RECORDS SUMMARY | 2025-03-07 13:05 | XMS_ITS | Patient Health Record ---
Author Organization [facility] Address [address] [place] [address] Care Team Providers Care Operator Prefinish Name Role Phone Devan THOMAS, Priscila Primary Care Provider Thom Gaines [phone] Allergies Allergen (clinical drug ingredient) Drug/Non Drug Allergy documented on EMR Reaction Allergy Type Onset Date Status oxycodone OxyCONTIN Unknown Drug Allergy Active Substance with sulfonamide structure and antibacterial mechanism of action (substance) Sulfa Antibiotics Unknown Drug Allergy Active Reason For Referral No Information Medications Medication SIG (Take, Route, Frequency, Duration) Notes Start Date End Date Status Eliquis 5 MG Tablet as directed Orally twice a day 09/28/2024 Active Betamethasone Dipropionate 0.05 % Cream 1 application Externally daily 09/28/2024 Active Symbicort 80-4.5 MCG/ACT Aerosol 2 puffs Inhalation twice a day 09/28/2024 Active Albuterol Sulfate 108 (90 Base) MCG/ACT Aerosol Powder Breath Activated 1 puff as needed Inhalation every 4 hrs Active Lisinopril 5 MG Tablet 2 tablets Orally Once a day; Duration: 30 day(s) 09/28/2024 Active hydroCHLOROthiazide 12.5 MG Capsule 1 capsule in the morning Orally Once a day; Duration: 30 day(s) 09/28/2024 Active Rosuvastatin Calcium 5 MG Tablet 1 tablet Orally Once a day; Duration: 30 day(s) 09/28/2024 Active Social History Tobacco Use: Social History Observation Description Date Details (start date - stop date) Never Smoker NA - NA Social History Drug/Alcohol: Social Info Question Answer Notes AUDIT-C (Standard) Did you have a drink containing alcohol in the past year? Yes How often did you have a drink containing alcohol in the past year? Monthly or less (1 point) How many drinks did you have on a typical day when you were drinking in the past year? 1 or 2 drinks (0 point) How often did you have six or more drinks on one occasion in the past year? 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 Section Notes: Nonsmoker; no sig alcohol Problems Problem Type SNOMED Code ICD Code Onset Dates Problem Status W/U Status Risk Notes Problem Colon cancer screening (168473868) Colon cancer screening (Z12.11) Active confirmed Problem Long-term current use of anticoagulant (064465104) assistant terminal manager (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) use of anticoagulants (Z79.01) Active confirmed Problem Preprocedural examination (116692399114869) Preprocedural examination (Z01.818) Active confirmed Vital Signs Temperature 97.7 degrees Fahrenheit 09/28/2024 Blood pressure diastolic 01 mm Hg 09/28/2024 Height 72 in 09/28/2024 Blood pressure systolic 001 mm Hg 09/28/2024 Weight 272.4 lbs 09/28/2024 BMI 36.94 kg/m2 09/28/2024 Procedures Procedure Date Ordered Date Performed Result Body Sit e COLONOSCOPY 09/28/2024 N/A Encounters Encounter Location Date Provider Diagnosis [facility] [address] [place] [phone] 09/28/2024 Thom Ko Colon cancer screeni ng Z12.11 ; skilled nursing (current) use of anticoagulants Z79.01 and Preprocedural examination Z01.818 [facility] [address] [place] [phone] 12/28/2024 Thom Ko [facility] [address] [place] [phone] 03/03/2025 Thom Ko Assessments Encounter Date Diagnosis (ICD [...] you advised of his progress. 09/28/2024 assistant terminal manager (current) use of anticoagulants (ICD-10 - Z79.01) [...] Provider Name:Thom Ko , 05/15/2025 08:30:00 AM, [address] [facility] , [place], [place], [id number], Insurance Providers Payer Name Payer Address Payer Phone Subscriber Number Group Number Insured Name Patient Relationship to Insured Coverage Start Date Coverage End Date MEDICARE OF [place] [address] [place] [address] [id number] RAMIRO JAMES Self - patient is the insured [facility] [address] [place] [address] [id number] RAMIRO JAMES Self - patient is the insured Medical (General) History Medical History History ICD Code HTN Denies [place],DM,CVA,renal disease COPD Neg. screening colonoscopy in 2009 RLE DVT with PE in 2023- on Eliquis- -has seen Dr. Hyman at [facility] Hematology Hyperlipidemia Starting a GLP-1 in 09/2024 for weight lo ss Surgical History Surgery Date(Month/Year) Rectal fissures/Hemorrhoids
--- OUTSIDE RECORDS SUMMARY | 2025-03-07 13:05 | XMS_ITS | Clinical Summary ---
Author Organization [facility] Address [address] [place] [address] Care Team Providers Care Assistant Cook Name Role Phone Priscila Hartman MD Primary [...] on file Sexual Orientation Not on file Last Filed Vital Signs [...] age to complete this topic Care Teams Assistant Cook Relationship Specialty Start Date End Date Priscila Hartman MD [address] [place] [address] PCP - General 11/25/22
--- OUTSIDE RECORDS SUMMARY | 2025-03-07 13:05 | XMS_ITS | Patient Health Record ---
Author Organization [facility] Address [address] [place] [address] Care Team Providers Care Chain Mender Name Role Phone Devan THOMAS, Priscila Hawkins Primary Care Provider Un available Garry Allen Unavailable [phone] Allergies Allergen (clinical drug ingredient) Drug/Non Drug [...] W/U Status Risk Notes Problem Plantar wart (73407055) Plantar wart (B07.0) Active confirmed Problem Acquired hammer toe of left foot (5182897357516 103) Other hammer toe(s) (acquired), left foot (M20.42) Active confirmed Plan Of Treatment Pending Test Test Name Order Date X ray : Foot, left 3V 05/25/2019 Insurance Providers Payer Name Payer Address Payer Phone Subscriber Number Group Number Insured Name Patient Relationship to Insured Coverage Start Date Coverage End Date [facility] [address] [facility] RADHA molina [address] [id number] Derick Fields Self - patient is the insured Medical (General) History Medical History History ICD Code High blood pressure Measles blood clots Surgical History Surgery Date(Month/Year) Hospitalization History Reason Date(Month/[facility]) [facility] lung [facility] 20[facility] Respiratory infection 08/01
== END 2025-03-07 12:37 | disposition home or self-care (01) ==
PROVIDERS: PCP Internal Medicine; Visit Provider Internal Medicine
DX: J06.9 Acute upper respiratory infection, unspecified (principal)

== ENCOUNTER → 2025-03-07 11:47 | Outpatient (BNVA) | payer MEDICARE, MEDICAID, SELFPAY | PROVIDERS: PCP Internal Medicine; Visit Provider Internal Medicine | DX: J06.9 Acute upper respiratory infection, unspecified (principal) | CPT/HCPCS: 99212 ==

== ENCOUNTER 2025-03-14 13:27 | Outpatient (REF) | payer MEDICARE, MEDICAID, SELFPAY ==
--- OUTSIDE RECORDS SUMMARY | 2024-12-30 06:10 | XMS_ITS ---
Author Organization [facility] Address [address] [place] [address] Care Team Providers Care Desolderer Name Role Phone Devan THOMAS, Priscila Primary Care Provider Thom Gaines Unavailable [phone] REASON FOR VISIT screening colonoscopy Encounters Encounter Location Date Provider Diagnosis [facility] Out[facility] [address] [place] [phone] 12/30/2024 Thom Ko Plan Of Treatment Next Appt Details Provider Name:Thom Ko , 05/15/2025 08:30:00 AM, [address] [place] [address], [id number], Progress Notes * RAMIRO JAMESDOB:1960 ( 64 yo M)Acc No.[id number]:12/30/2024 COLON WITH MAC Patient: RAMIRO BARTLETT Provider: Vince Ko MD :1960 A ge:64 Y S ex:Male Date:12/30/2024 Address:[address] [place] [address] [address] [id number] Pcp:Priscila Hartman MD Subjective: * Chief Complaints: * S creening colonoscopy * The named appointment provid er may or may not be the originator of this progress note, and it is not deemed complete until electronically signed by the appointment provider. Sign off status: Pending * Provider: Vince Ko MD Date: Generated for Gayahtrii ng/Faxing/eTransmitting on: 05:22 PM EST
--- OUTSIDE RECORDS SUMMARY | 2025-03-13 06:50 | XMS_ITS ---
Author Organization [facility] Address [address] [place] [phone] Care Team Providers Care Visually Impaired Teacher Name Role Phone Devan THOMAS, Priscila Primary Care Provider Thom Gaines Unavailable [phone] REASON FOR VISIT screening colonoscopy Encounters Encounter Location Date Provider Diagnosis [facility] Outpatient [address] [place] [id number] 03/13/2025 Thom Ko Plan Of Treatment Next Appt Details Provider Name:Thom Ko , 05/15/2025 08:30:00 AM, [address] [place] [address], [phone], Progress Notes * RAMIRO JAMESDOB:1960 ( 64 yo M)Acc No.[id number]:03/13/2025 COLON WITH MAC Patient: RAMIRO BARTLETT Provider: Vince Ko MD :1960 A ge:64 Y S ex:Male Date:03/13/2025 Address:[address] [place] [address] [address], [facility] Pcp:Priscila Hartman MD Subjective: * Chief Complaints: * S creening colonoscopy * The named appointment provid er may or may not be the originator of this progress note, and it is not deemed complete until electronically signed by the appointment provider. Sign off status: Pending * Provider: Vince Ko MD Date: Generated for Printi ng/Faxing/eTransmitting on: 05:21 PM EST
[2025-03-14 16:38] LABS: Alanine Aminotransferase 31 U/L (0-40); Anion Gap 11 (12-20); Aspartate Amino Transferase 30 U/L (5-37); Blood Urea Nitrogen 15 mg/dL (9-16); Calcium 9.7 mg/dL (8.4-10.2); Carbon Dioxide 32 mmol/L (22-29); Chloride 105 mmol/L (96-108); Cholesterol 138 mg/dL (<200); Estimated Glomerular Filt Rate > 60; HDL Cholesterol 52 mg/dL (>40); Potassium 4.3 mmol/L (3.3-5.1); Sodium 144 mmol/L (135-145); Triglycerides 72 mg/dL (<150)
[2025-03-14 17:00] LABS: PSA,Total (Free>4and<10) 2.06 ng/mL (0.00-4.00)
--- OUTSIDE RECORDS SUMMARY | 2025-03-14 17:22 | XMS_ITS | Clinical Summary ---
Author Organization [facility] Address [address] [place] [address] Care Team Providers Care Race Engine Builder Name Role Phone Priscila Hartman MD Primary [...] age to complete this topic Care Teams Race Engine Builder Relationship Specialty Start Date End Date Priscila Hartman MD [address] [place] [address] PCP - General 11/25/22
--- OUTSIDE RECORDS SUMMARY | 2025-03-14 17:22 | XMS_ITS | Patient Health Record ---
Author Organization [facility] Address [address] [place] [address] Care Team Providers Care Scrap Burner Name Role Phone Devan THOMAS, Priscila [place] Primary Care Provider Un available Garry Allen Unavailable [phone] Allergies Allergen (clinical drug ingredient) Drug/Non Drug [...] W/U Status Risk Notes Problem Plantar wart (23497648) Plantar wart (B07.0) Active confirmed Problem Acquired hammer toe of left foot (9789974246746 103) Other hammer toe(s) (acquired), left foot (M20.42) Active confirmed Plan Of Treatment Pending Test Test Name Order Date X ray : Foot, left 3V 05/25/2019 Insurance Providers Payer Name Payer Address Payer Phone Subscriber Number Group Number Insured Name Patient Relationship to Insured Coverage Start Date Coverage End Date [facility] [address] [facility] [place] [id number] Derick Fields Self - patient is the insured Medical (General) History Medical History History ICD Code High blood pressure Measles blood clots Surgical History Surgery Date(Month/Year) Hospitalization History Reason Date(Month/Year) [facility] Blood [facility] lung clot 20[facility] Respiratory infection 08/01
--- OUTSIDE RECORDS SUMMARY | 2025-03-14 17:22 | XMS_ITS | Patient Health Record ---
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 Section Notes: Nonsmoker; no sig alcohol Problems Problem Type SNOMED Code ICD Code Onset Dates Problem Status W/U Status Risk Notes Problem Colon cancer screening (905870842) Colon cancer screening (Z12.11) Active confirmed Problem Long-term current use of anticoagulant (532418119) manager terminal (current) use of anticoagulants (Z79.01) Active confirmed Problem Preprocedural examination (926644309726227) Preprocedural examination (Z01.818) Active confirmed Vital Signs Temperature 97.7 degrees Fahrenheit 09/28/2024 Blood pressure diastolic 01 mm Hg 09/28/2024 Height 72 in 09/28/2024 Blood pressure systolic 001 mm Hg 09/28/2024 Weight 272.4 lbs 09/28/2024 BMI 36.94 kg/m2 09/28/2024 Procedures Procedure Date Ordered Date Performed Result Body Sit e COLONOSCOPY 09/28/2024 N/A Encounters Encounter Location Date Provider Diagnosis [facility] [address] [place] [phone] 09/28/2024 Thom Ko Colon cancer screeni ng Z12.11 ; retirement (current) use of anticoagulants Z79.01 and Preprocedural examination Z01.818 [facility] [address] [place] [phone] 12/28/2024 Thom Ko [facility] [address] [place] [phone] 03/03/2025 Thom Ko Assessments Encounter Date Diagnosis [...] keep you advised of his progress. 09/28/2024 manager terminal (current) use of anticoagulants (ICD-10 - Z79.01) [...] Name:Thom Ko , 05/15/2025 08:30:00 AM, [address] [facility] , [place], [place], [phone], Insurance Providers Payer Name Payer Address Payer Phone Subscriber Number Group Number Insured Name Patient Relationship to Insured Coverage Start Date Coverage End Date MED[place]ARE OF [place] [address] [place] [address] [id number] RAMIRO JAMES Self - patient is the insured MEDICAID OF [facility] [address] [place] [address] [id number] RAMIRO JAMES Self - patient is the insured Medical (General) History Medical History History ICD Code HTN Denies [place],DM,CVA,renal disease COPD Neg. screening colonoscopy in 2009 RLE DVT with PE in 2023- on Eliquis- -has seen Dr. Hyman at [facility] Hematology Hyperlipidemia Starting a GLP-1 in 09/2024 for weight lo ss Surgical History Surgery Date(Month/Year) Rectal fissures/Hemorrhoids
--- OUTSIDE RECORDS SUMMARY | 2025-03-14 17:22 | XMS_ITS | Clinical Summary ---
Author Organization [facility] Prior to 08/13/[address] [place] [address] Care Team Providers Care Electron Microprobe Operator Name Role Phone Priscila Hartman MD Primary Care Provider [phone] Allergies Active Allergy Reactions Criticality Noted Date [...] age to complete this topic Care Teams Electron Microprobe Operator Relationship Specialty Start Date End Date Priscila Hartman MD [address] [place] [address] RADHA SALINAS [address] PCP - General Internal Medicine 11/25/22
== END 2025-03-14 13:28 ==
LOC: HO.HMGCLDS 13:27
PROVIDERS: PCP Internal Medicine; Visit Provider Internal Medicine
DX: Z12.5 Encounter for screening for malignant neoplasm of prostate (principal); I10 Essential (primary) hypertension; E78.5 Hyperlipidemia, unspecified; E11.9 Type 2 diabetes mellitus without complications; E66.9 Obesity, unspecified
CPT/HCPCS: 36415; 80048; 80061; 83036; 84153; 84450; 84460